=== PATIENT | male | born 1940 | race Caucasian/White ===

== ENCOUNTER 2023-06-07 04:15 | Observation (INO) | payer MEDICARE, SELFPAY ==
[2023-06-07] VITALS (8 sets, daily range): BP systolic 123–143; BP diastolic 60–70; PULSE 70–120; RESP 16–19; TEMP 36.8–37.1; O2SAT 93–95; BMI 26.6
--- NOTE | 2023-06-07 04:35 | PC.NURSE ---
Patient arrived to floor by EMS at 04:20.
--- NOTE | 2023-06-07 05:10 | XR_ITS ---
PROCEDURE INFORMATION: Exam: XR Chest Exam date and time: 06/07/2023 6:28 AM Age: 83 years old Clinical indication: Cough TECHNIQUE: Imaging protocol: Radiologic exam of the chest. Views: 1 view. COMPARISON: No relevant prior studies available. FINDINGS: Lungs: There is left basilar atelectasis. Pleural spaces: Unremarkable. No pleural effusion. No pneumothorax. Heart/Mediastinum: Unremarkable. No cardiomegaly. Bones/joints: Unremarkable. IMPRESSION: Basilar atelectasis.
[2023-06-07 05:17] LABS: Influenza A, PCR Not Detected (NotDetected); Influenza B, PCR Not Detected (NotDetected)
--- NOTE | 2023-06-07 05:19 | EXP.HP ---
History of Present Illness *Admission Date: 06/07/23 *Reason for visit:: elatevated troponin, cough *History of present illness: This is an 83-year-old male with significant cardiac history including hypertension, hyperlipidemia, CAD status post CABGx3, IDDM, who came as a transfer from [facility], to be evaluated for elevated troponin in the course of positive diagnosis of COVID-19. Patient went to the ER earlier, complaining of generalized weakness, cough diarrhea. Patient was tested positive for COVID on his PCP office today. He also reported hypoglycemic episodes. During the ER evaluation patient started trending up the troponin. Denies chest pain, on room air, afebrile, hemodynamically stable. Transfer asked to be evaluated by cardiology. [facility] Disclaimer: The information contained in this section may have been updated after the patient was seen, as this information can be updated by other users. Medical History (Updated 06/07/23 @ 14:02 by Jonathon Fonseca MD) CAD (coronary artery disease) Hyperlipemia Social History (Updated 06/07/23 @ 05:42 by Eric Conte APRN) Smoking Status: Unknown if ever smoked alcohol intake: never current occupational status: retired Travel in the last 8 weeks: None Review of Systems Review of Systems Review of systems:: pertinent systems reviewed and negative unless documented below Meds Home Medications and Allergies Home Medications Medication Instructions Recorded Confirmed Type atorvastatin 40 mg tablet 40 mg PO HS Cholesterol 06/07/23 06/07/23 History colchicine (gout) 0.6 mg tablet 0.6 mg PO DAILY GOUT 06/07/23 06/07/23 History hydrochlorothiazide 50 mg tablet 50 mg PO DAILY Fluid 06/07/23 06/07/23 History insulin aspart U-100 100 unit/mL See Rx Instructions .Route 06/07/23 06/07/23 History (3 mL) subcutaneous pen (Novolog .COMPLEX Diabetes FlexPen U-100 Insulin aspart) insulin glargine 100 unit/mL 48 unit SQ DAILY Diabetes 06/07/23 06/07/23 History subcutaneous solution (Lantus U-100 Insulin) lisinopril 30 mg tablet 30 mg PO DAILY High Blood Pressure 06/07/23 06/07/23 History metformin 500 mg tablet 1,000 mg PO BIDWMEAL Diabetes 06/07/23 06/07/23 History metoprolol tartrate 25 mg tablet 25 mg PO BID High Blood Pressure 06/07/23 06/07/23 History New Prescriptions to Start Prescriptions: Allergies Allergy/AdvReac Type Severity Reaction Status Date / Time No Known Drug Allergies Allergy Verified 06/07/23 05:24 Exam Data for Last 24 hours Vital signs and Labs for Last 24 Hours: Temp Pulse Resp BP Pulse Ox O2 Del Method 98.2 F 90 19 143/64 H 95 Room Air 06/07/23 04:42 06/07/23 04:42 06/07/23 04:42 06/07/23 04:42 06/07/23 04:42 06/07/23 04:42 I & O for Last 24 hours: Intake & Output 06/04/23 06/05/23 06/06/23 06/07/23 23:59 23:59 23:59 23:59 Weight 86.682 kg Constitutional Constitutional: mild distress *Routine HEENT Exam Head: Present normocephalic and atraumatic Eye: Present EOMI, PERRL and normal accommodation ENT: Present mucous membranes moist *Routine Neck Exam Neck: Present supple, full ROM and trachea midline *Routine Respiratory Exam Respiratory: Present diminished air movement, normal respiratory effort, able to speak in complete sentences and symmetric chest movement *Routine Cardiovascular Exam Cardiovascular: Present RRR, Normal S1 and Normal S2 *Routine Abdominal Exam Abdominal: Present soft and normoactive bowel sounds; Absent organomegaly *Routine Rectal Exam Rectal:: other *Routine Genitalia Exam Genitalia:: other *Routine Extremities Exam Extremities: Present full ROM, pulses intact and normal capillary refill; Absent cyanosis *Routine Skin Exam Skin: Present intact, dry and warm *Routine Neurological Exam Neurological: Present alert, oriented X3, moving all extremities and normal tone Routine Psychiatric Exam Psychiatric: Present cooperative, good insight an
--- NOTE | 2023-06-07 05:29 | PC.NURSE ---
med rec not completed. pt. does not know his medications. pt. stated son would be here today and could bring a list of his home meds
[2023-06-07 05:45] LABS: Coronavirus 19, PCR Detected (NotDetected)
[2023-06-07 07:33] LABS: Basophils % 0.5 % (0.1-2.0); Eosinophils % 0.3 % (0.1-12.0); Hematocrit 42.7 % (42.0-52.0); Hemoglobin 13.9 g/dL (14.1-18.0); Lymphocytes # 1.1 K/mm3 (0.7-4.5); Mean Corpuscular HGB Conc 32.5 g/dL (31.8-35.4); Mean Corpuscular Volume 92.3 fl (80-94); Mean Platelet Volume 7.9 fl (7.4-10.4); Monocytes # 0.6 K/mm3 (0.1-1.0); Monocytes % 11.2 % (1.7-9.3); Neutrophils # 3.7 K/mm3 (1.8-7.8); Platelet Count 156 K/mm3 (142-424); Red Blood Count 4.63 M/mm3 (4.60-6.20); Red Cell Distribution Width 13.5 % (11.5-17.5); White Blood Count 5.4 K/mm3 (4.8-10.8)
[2023-06-07 07:35] LABS: Alanine Aminotransferase 28 U/L (12-78); Albumin Level 3.4 g/dl (3.5-5.0); Albumin/Globulin Ratio 1.3 (1.1-1.8); Alkaline Phosphatase 78 U/L (38-126); Anion Gap 12.2 mEq/L (5-15); Aspartate Amino Transferase 35 U/L (17-59); Blood Urea Nitrogen 17 mg/dl (9-20); Calcium 8.5 mg/dl (8.4-10.2); Carbon Dioxide 27 mmol/L (22.0-30.0); Chloride 99 mmol/L (98-107); Chol/HDL Ratio 3.1 (1-3.5); Cholesterol 92 mg/dl (140-200); Creatinine Clearance Estimated 71 mL/min (50-200); Estimated Glomerular Filt Rate 72 ml/min (>60); GFR (African American) 87 ML/MIN (>60); Globulin 2.6 g/dL (1.3-3.2); Glucose 148 mg/dl (74-100); HDL Cholesterol 30 mg/dl (40-60); Magnesium 1.7 mg/dl (1.6-2.3); Potassium 3.2 mmoL/L (3.5-5.1); Sodium 135 mmol/L (136-145); Triglycerides 66 mg/dl (30-150); VLDL Cholesterol 13 mg/dL (0-40)
[2023-06-07 07:39] LABS: INR 1.08 (0.9-1.1); Prothrombin Time 11.6 seconds (10.1-12.5)
[2023-06-07 07:45] LABS: D-Dimer 1.02 ug/mL (0.0-0.5); Direct LDL Cholesterol 39.45 mg/dL (100-129)
[2023-06-07 08:03] LABS: Troponin I 0.05 ng/ml (0.00-0.034)
[2023-06-07 11:57] LABS: POC Glucose,Bedside 145 (70-110)
[2023-06-07 12:19] LABS: Troponin I 0.04 ng/ml (0.00-0.034)
--- NOTE | 2023-06-07 12:24 | HMH.PHAINT1 ---
Pharmacy Intervention Comments: MEDICATION RECONCILIATION COMPLETED ON PATIENT USING EXTERNAL FILL HISTORY FROM PHARMACY. -MARCY PIERRE, HENRYD
[2023-06-07 16:54] LABS: POC Glucose,Bedside 141 (70-110)
--- NOTE | 2023-06-07 18:31 | PC.NURSE ---
PT AOX4, HE HAS NOT REQUIRED O2 SUPPORT. SAT UP TO CHAIR FOR DINNER AND TOLERATED WELL. AMBULATING WITH STANDBY ASSIST TO BATHROOM.
[2023-06-07 18:49] LABS: Chloride 103 mmol/L (98-107); Sodium 134 mmol/L (136-145)
[2023-06-07 18:50] LABS: Potassium 4.5 mmoL/L (3.5-5.1)
[2023-06-07 18:52] LABS: Alanine Aminotransferase 34 U/L (12-78); Albumin Level 3.5 g/dl (3.5-5.0); Albumin/Globulin Ratio 1.2 (1.1-1.8); Alkaline Phosphatase 89 U/L (38-126); Anion Gap 12.5 mEq/L (5-15); Aspartate Amino Transferase 80 U/L (17-59); Bilirubin,Total 1.3 mg/dl (0.2-1.3); Blood Urea Nitrogen 17 mg/dl (9-20); Carbon Dioxide 23 mmol/L (22.0-30.0); Creatinine Clearance Estimated 71 mL/min (50-200); Estimated Glomerular Filt Rate 72 ml/min (>60); GFR (African American) 87 ML/MIN (>60); Globulin 2.9 g/dL (1.3-3.2); Total Protein,Serum 6.4 g/dl (6.3-8.2)
[2023-06-07 18:53] LABS: Calcium 8.7 mg/dl (8.4-10.2); Glucose 153 mg/dl (74-100)
[2023-06-07 19:04] LABS: Troponin I 0.03 ng/ml (0.00-0.034)
[2023-06-07 21:20] LABS: POC Glucose,Bedside 163 (70-110)
[2023-06-08] VITALS (7 sets, daily range): BP systolic 101–123; BP diastolic 54–66; PULSE 50–78; RESP 17–19; TEMP 36.6–37.2; O2SAT 93–98; BMI 26.6
--- NOTE | 2023-06-08 04:49 | PC.NURSE ---
PATIENT HAS HAD AN UNEVENTFUL NIGHT. DENIES CP/SOA/DISCOMFORT. NO RESP DISTRESS NOTED;. NO COUGH NOTED. 02 SATS 93-95% ON ROOM AIR. VITAL SIGNS STABLE . AFEBRILE. REMAINS IN AIRBORN/CONTACT PRECAUTIONS DUE TO COVID POSITIVE.
[2023-06-08 05:17] LABS: POC Glucose,Bedside 161 (70-110)
[2023-06-08 07:49] LABS: Basophils % 0.8 % (0.1-2.0); Eosinophils # 0.1 K/mm3 (0.0-0.4); Eosinophils % 1.9 % (0.1-12.0); Hematocrit 43.7 % (42.0-52.0); Hemoglobin 14.1 g/dL (14.1-18.0); Lymphocytes # 1.4 K/mm3 (0.7-4.5); Lymphocytes % 35.8 % (10-50); Mean Corpuscular HGB Conc 32.2 g/dL (31.8-35.4); Mean Corpuscular Hemoglobin 29.8 pg (27.0-31.2); Mean Corpuscular Volume 92.6 fl (80-94); Mean Platelet Volume 8.1 fl (7.4-10.4); Monocytes # 0.4 K/mm3 (0.1-1.0); Monocytes % 8.8 % (1.7-9.3); Neutrophils # 2.1 K/mm3 (1.8-7.8); Neutrophils % 52.8 % (37.0-80.0); Platelet Count 170 K/mm3 (142-424); Red Blood Count 4.72 M/mm3 (4.60-6.20); Red Cell Distribution Width 13.7 % (11.5-17.5)
[2023-06-08 07:59] LABS: Alanine Aminotransferase 39 U/L (12-78); Albumin Level 3.3 g/dl (3.5-5.0); Albumin/Globulin Ratio 1.3 (1.1-1.8); Alkaline Phosphatase 72 U/L (38-126); Anion Gap 11.2 mEq/L (5-15); Aspartate Amino Transferase 46 U/L (17-59); Bilirubin,Total 0.8 mg/dl (0.2-1.3); Blood Urea Nitrogen 17 mg/dl (9-20); Calcium 8.5 mg/dl (8.4-10.2); Carbon Dioxide 29 mmol/L (22.0-30.0); Chloride 102 mmol/L (98-107); Creatinine Clearance Estimated 71 mL/min (50-200); Estimated Glomerular Filt Rate 72 ml/min (>60); GFR (African American) 87 ML/MIN (>60); Globulin 2.6 g/dL (1.3-3.2); Glucose 155 mg/dl (74-100); Magnesium 1.9 mg/dl (1.6-2.3); Potassium 4.2 mmoL/L (3.5-5.1); Sodium 138 mmol/L (136-145); Total Protein,Serum 5.9 g/dl (6.3-8.2)
[2023-06-08 08:11] LABS: Troponin I 0.03 ng/ml (0.00-0.034)
--- NOTE | 2023-06-08 10:37 | EXP.ACUTE.PN ---
Subjective *Date: 06/08/23 *Time: 12:37 Interval history: Patient complains of being hoarse and weak today. Stable on room air. Denies any chest pain, nausea, vomiting. Poor appetite but eating at least 25% of his trays. Working with therapy today. Medical Exam Vital signs and Labs for Last 24 Hours: Vital Signs Temp Pulse Pulse Resp BP Pulse Ox O2 Del Method 06/08/23 09:00 Room Air 06/08/23 08:00 Room Air 06/08/23 08:00 63 06/08/23 08:00 98.2 F 67 18 113/66 95 Room Air 06/08/23 06:29 Room Air 06/08/23 05:00 Room Air 06/08/23 04:00 98.1 F 64 19 110/57 L 94 L Room Air 06/08/23 04:00 65 06/08/23 02:51 Room Air 06/08/23 01:00 Room Air 06/08/23 00:00 62 06/08/23 00:00 98.0 F 61 18 119/58 L 93 L Room Air 06/07/23 20:00 70 06/07/23 23:00 Room Air 06/07/23 21:00 Room Air 06/07/23 20:00 95 Room Air 06/07/23 20:00 98.4 F 76 19 124/66 95 Room Air 06/07/23 18:34 Room Air 06/07/23 16:00 90 06/07/23 17:00 Room Air 06/07/23 15:00 Room Air 06/07/23 12:00 90 06/07/23 14:28 98.7 F 88 16 123/69 93 L Room Air 06/07/23 13:00 Room Air 06/07/23 11:00 Room Air 06/07/23 10:43 98.6 F 95 H 16 139/60 94 L Room Air Intake and Output 06/07/23 06/08/23 06/08/23 23:59 07:59 15:59 Intake Total 270 / 1130 889 / 1369 480 / 1369 Output Total 0 / 100 200 / 200 0 / 200 Balance 270 / 1030 689 / 1169 480 / 1169 Intake: Intake, Oral Amount 270 / 1130 440 / 920 480 / 920 Intake, Total IV Amount 449 / 449 0.9 % Sodium Chloride 1000ML 1, 449 / 449 000 ml @ 50 mls/hr IV .Q20H [facility] Rx#:[id number] Output: Output, Urine Amount 0 / 100 200 / 200 0 / 200 Other: Number of Unmeasured Voids 1 0 0 Weight 86.319 kg Patient Weight 06/08/23 23:59 Weight 86.319 kg Laboratory Results - last 24 hr 06/07/23 11:45: POC Glucose 145 H 06/07/23 11:48: Troponin I 0.04 H 06/07/23 16:47: POC Glucose 141 H 06/07/23 18:00: Sodium 134 L, Potassium 4.5 D, Chloride 103, Carbon Dioxide 23, Anion Gap 12.5, BUN 17, Creatinine 1.00, Estimated Creat Clear 71, Estimated GFR 72, Est GFR ( Amer) 87, Glucose 153 H, Calcium 8.7, Total Bilirubin 1.3, AST 80 H D, ALT 34, Alkaline Phosphatase 89, Troponin I 0.03, Total Protein 6.4, Albumin 3.5, Globulin 2.9, Albumin/Globulin Ratio 1.2 06/07/23 21:13: POC Glucose 163 H 06/08/23 05:02: POC Glucose 161 H 06/08/23 07:23: WBC 4.0 L D, RBC 4.72, Hgb 14.1, Hct 43.7, MCV 92.6, MCH 29.8, MCHC 32.2, RDW 13.7, Plt Count 170, MPV 8.1, Neut % (Auto) 52.8, Lymph % (Auto) 35.8, [place] % (Auto) 8.8, Eos % (Auto) 1.9, Baso % (Auto) 0.8, Neut # (Auto) 2.1, Lymph # (Auto) 1.4, [place] # (Auto) 0.4, Eos # (Auto) 0.1, Baso # (Auto) 0.0, Sodium 138, Potassium 4.2, Chloride 102, Carbon Dioxide 29, Anion Gap 11.2, BUN 17, Creatinine 1.00, Estimated Creat Clear 71, Estimated GFR 72, Est GFR ( Amer) 87, Glucose 155 H, Calcium 8.5, Magnesium 1.9 D, Total Bilirubin 0.8, AST 46 D, ALT 39, Alkaline Phosphatase 72, Troponin I 0.03, Total Protein 5.9 L, Albumin 3.3 L, Globulin 2.6, Albumin/Globulin Ratio 1.3 I & O for Labs for Last 24 Hours: Intake & Output 06/05/23 06/06/23 06/07/23 06/08/23 23:59 23:59 23:59 23:59 Intake Total 690 / 1130 1369 / 1369 Output Total 100 / 100 200 / 200 Balance 590 / 1030 1169 / 1169 Weight 86.682 kg 86.319 kg Constitutional: Present no acute distress and average body habitus Head: Present atraumatic and normocephalic Neck: Present normal inspection Respiratory: Present normal respiratory effort; Absent rhonchi, wheezes or crackles Cardiac: Present Reg Rate and Rhythm GI: Present soft and normal bowel sounds; Absent distention or tenderness Extremities: Present normal inspection and full ROM Skin: Present intact; Absent erythema Neuro: Present Grossly Intact, alert, awake, oriented x 3 and mo
--- NOTE | 2023-06-08 12:29 | HMH.PTEV ---
Physical Therapy Evaluation Rehab PT IP Evaluation Start: 06/07/23 13:47 Freq: ONCE Status: Active Protocol: Document 06/08/23 12:18 MARY (Rec: 06/08/23 12:28 RESHMAELAINE [id number]) Subjective/History History History Pt is a 83 year old male that was transferred from [facility] for evaluation of elevated troponin in the course of positive COVID-19 diagnosis. Pt went to the ER with complaints of generalized weakness, cough and diarrhea. Pt tested positive for COVID in PCP office. During evaluation in the ER, pt was found to have upward trending troponin. Pt denied chest pain and was hemodynamically stable. Pt was transferred to be evaluated by cardiology and admitted for IP management. PMH: hypertension, hyperlipidemia, CAD status post CABGx3, IDDM Subjective Subjective Pt presents seated in bedside chair, pleasant and agreeable to PT initial evaluation. Pt denies reports of pain at rest other than a scratchy throat. Pt reports that he lives at home with his and adult granddaughter in a [facility] with 4 FLIP. Pt reports that he has used a cane for ambulation in the past but has not used it recently. Pt reports that at baseline he is independent with all B/IADL's including driving. Pt reports that his has skin cancer and he has been assisting to care for her. Pt performed sit to stand transfer with mod (I) without the use of an AD. Pt ambulated x50' within room without the use of an AD with mod (I), no LOB noted. Pt performed all bed mobility tasks with mod (I
[2023-06-08 17:37] LABS: POC Glucose,Bedside 153 (70-110)
[2023-06-08 17:37] LABS: POC Glucose,Bedside 194 (70-110)
[2023-06-08 20:41] LABS: POC Glucose,Bedside 235 (70-110)
[2023-06-09] VITALS: BP 135/73; PULSE 53; PULSE 56; RESP 18; TEMP 36.5; O2SAT 96
--- NOTE | 2023-06-09 00:53 | ECG_ITS ---
APPROVED REPORT Exam: Resting ECG HR:49 bpm ECG Measurements Heart Rate 49 AXES SC 147 P 35 QRSd 103 QRS 3 QT 467 T 76 QTc 437 Conclusion SINUS BRADYCARDIA WITH OCCASIONAL SUPRAVENTRICULAR PREMATURE COMPLEXES LOW QRS VOLTAGE IN EXTREMITY LEADS [QRS DEFLECTION < 0.5 mV IN LIMB LEADS] SEPTAL MYOCARDIAL INFARCTION , OF INDETERMINATE AGE [40+ ms Q WAVE IN V1/V2] ABNORMAL ECG UNCONFIRMED REPORT Electronically signed by : Tahir Armstrong MD 06/09/2023 07:09:14
[2023-06-09 04:00] VITALS: BP 137/62; PULSE 55; PULSE 57; RESP 18; TEMP 36.6; O2SAT 95; BMI 26.3
[2023-06-09 05:21] LABS: POC Glucose,Bedside 174 (70-110)
--- NOTE | 2023-06-09 06:23 | PC.NURSE ---
HR GETS LOW 45/MIN. SINUS RADHA/PACs/BBB. DENIES PAIN OR DISCOMFORT. VSS/AFEBRILE. REMAINS IN AIRBORN/CONTACT PRECAUTIONS DUE TO COVID POSITIVE. NO RESP DISTRESS. NO COUGH NOTED.
[2023-06-09 06:47] LABS: Basophils % 0.6 % (0.1-2.0); Eosinophils # 0.2 K/mm3 (0.0-0.4); Eosinophils % 3.7 % (0.1-12.0); Hematocrit 44.3 % (42.0-52.0); Hemoglobin 14.3 g/dL (14.1-18.0); Lymphocytes # 1.6 K/mm3 (0.7-4.5); Mean Corpuscular HGB Conc 32.3 g/dL (31.8-35.4); Mean Corpuscular Hemoglobin 29.8 pg (27.0-31.2); Mean Corpuscular Volume 92.4 fl (80-94); Mean Platelet Volume 7.8 fl (7.4-10.4); Monocytes # 0.3 K/mm3 (0.1-1.0); Monocytes % 8.4 % (1.7-9.3); Neutrophils # 1.9 K/mm3 (1.8-7.8); Neutrophils % 47.2 % (37.0-80.0); Platelet Count 179 K/mm3 (142-424); Red Cell Distribution Width 13.6 % (11.5-17.5); White Blood Count 3.9 K/mm3 (4.8-10.8)
--- NOTE | 2023-06-09 07:00 | CA_ITS ---
APPROVED REPORT EXAM: Comprehensive 2D, Doppler, and color-flow Echocardiogram Undercoater: Galina Bull CRT Ht: 5 ft 11 in Wt: 191lbs BSA: 2.07 BP: 143/64 mmHg Indications: Covid +, Non STEMI, Diabetes, CAD, Hyperlipidemia, Hypertension/HDD, CABG x 3 Echo 60-65% at january 2023 2D Dimensions LVOT 1.94 cm (M/F) 1.5-2.5 LA Volume 29.00 mL LA Volume Index 13.70 mL/m2 (M/F) 16-34 M-Mode Dimensions RVDd 2.57 cm (0.9-2.6) LA Diam 3.51 cm (1.9-4.0) LVDd 6.07 cm (3.5-5.7) Ao Diam 4.36 cm (2.0-3.7) LVDs 4.30 cm (3.5-5.7) IVSd 0.96 cm (0.6-1.1) PWd 1.04 cm (0.6-1.1) EF (Teich) 55.00% FS 29.20% EDV (Teich) 184.80 mL TAPSE 1.61 (<1.7) ESV (Teich) 83.10 mL LV Diastology E Decel Time 223.00 (160-240 msec) E/A Ratio 0.72 MED E' 6.20 (< 7 cm/sec) MED A' 9.20 cm/s E'/MED E' Ratio 11.97 (>14) LAT E' 7.60 (<10 cm/sec) LAT A' 10.30 cm/s E/LAT E' Ratio 9.76 (>14) Aortic Valve AO Peak GR. 5.20 mmHg Mitral Valve MV A Velocity 103.00 (40-130 cm/s) E/A Ratio 0.72 MV Decel. Time 223.00 (160-240 ms) Pulmonary Valve PV Peak Velocity 105.00 (50-150 cm/s) Tricuspid Valve TR P. Velocity 123.00 cm/s RAP Estimate 10.00 mmHg RVSP 16.10 mmHg Left Ventricle The left ventricle is normal size. The left ventricular systolic function is normal. The left ventricular ejection fraction is within the normal range. Proximal septal thickening is present. There is normal LV segmental wall motion. The left ventricular diastolic function is normal. LVEF is 60% Right Ventricle The right ventricle is normal size. The right ventricular systolic function is normal. Atria The left atrium size is normal. The right atrium size is normal. There is no Doppler evidence of interatrial shunt. Aortic Valve The aortic valve is mildly thickened. There is no aortic valvular stenosis. Trace aortic regurgitation. Mitral Valve The mitral valve is normal in structure. No evidence of mitral valve stenosis. Mild mitral regurgitation. Tricuspid Valve The tricuspid valve leaflets are thin and pliable. Trace tricuspid regurgitation. There is insufficient TR jet to estimate RVSP. Pulmonic Valve The pulmonary valve is normal in structure. Trace pulmonic regurgitation. Great Vessels The aortic root is normal in size. The ascending aorta is normal in size. IVC is normal in size and collapses >50% with inspiration. Pericardium There is no pericardial effusion. Other Information Study Quality: Fair Conclusion Normal biventricular systolic function. No significant valvular stenosis or regurgitation. Electronically signed by : Sarah Thomas, 06/12/2023 21:44:36
[2023-06-09 07:01] LABS: Alanine Aminotransferase 48 U/L (12-78); Albumin Level 3.3 g/dl (3.5-5.0); Albumin/Globulin Ratio 1.3 (1.1-1.8); Alkaline Phosphatase 77 U/L (38-126); Anion Gap 9.8 mEq/L (5-15); Aspartate Amino Transferase 52 U/L (17-59); Bilirubin,Total 0.6 mg/dl (0.2-1.3); Blood Urea Nitrogen 17 mg/dl (9-20); Calcium 8.4 mg/dl (8.4-10.2); Carbon Dioxide 30 mmol/L (22.0-30.0); Chloride 101 mmol/L (98-107); Creatinine Clearance Estimated 70 mL/min (50-200); Estimated Glomerular Filt Rate 81 ml/min (>60); GFR (African American) 98 ML/MIN (>60); Globulin 2.6 g/dL (1.3-3.2); Glucose 176 mg/dl (74-100); Magnesium 1.9 mg/dl (1.6-2.3); Potassium 3.8 mmoL/L (3.5-5.1); Sodium 137 mmol/L (136-145); Total Protein,Serum 5.9 g/dl (6.3-8.2)
[2023-06-09 08:00] VITALS: BP 125/62; PULSE 60; PULSE 62; RESP 16; TEMP 36.6; O2SAT 95
--- NOTE | 2023-06-09 09:28 | SW/DCPLANNER ---
Addendum entered by Windy Markham 06/09/23 14:57: [facility] w/ [facility] stated they can accept this patient for home health services to start tomorrow 06/10/23. Addendum entered by Windy Markham 06/09/23 11:47: Patient information/order has been faxed to [facility]. Patient will discharge home today. Original Note: PT evaluated patient over the weekend and recommended patient returning home w/ home health services. I spoke w/ patient this AM regarding discharge plans. Patient stated that he resides in [place] w/ his that requires his assistance at home. I spoke w/ patient regarding home health services: patient is agreeable to services and prefers to use [facility]. I will fax patient information/order to [facility] once patient is medically stable for discharge. Discharge date is unknown at this time.
--- NOTE | 2023-06-09 09:49 | HMH.OTEV ---
OT Inpatient Evaluation Rehab OT IP Evaluation Start: 06/07/23 13:47 Freq: ONCE Status: Active Protocol: Document 06/09/23 09:43 [facility] (Rec: 06/09/23 09:49 [facility] [id number]) Rehab OT IP Assessment Subjective History Pt oriented x 4 on arrival. Pt agreeable to engage in therapy evaluation. Pt admitted on 06/07/23 due to elevated troponin and COVID. This is an 83-year-old male with significant cardiac history including hypertension , hyperlipidemia, CAD status post CABGx3, IDDM, who came as a transfer from [facility], to be evaluated for elevated troponin in the course of positive diagnosis of COVID-19 . Prior to being in the hospital, pt lived at home with his . Pt claims he was independent with all ADLs and IADLs. Pt did use a cane during ambulation. Pt also still drove. Subjective I am ready to go home and see my . Objective Patient Orientation Person,Place,Birthday,Month Upper Extremity Gross ROM WFL Bed Mobility bed mobility-scooting,bed mobility - supine/sit,bed mobility - rolling Assist Level Independent Transfer Training Sit/Stand Transfer Assist Level Supervision/Stand by Chair Transfer Ability Supervision/Stand by Chair Transfer Technique Sit to/from Ambulatory Lower Body Dressing Ability Standby Assistance Rehab OT IP prob,goals,plan Problems Date of Evaluation: 06/09/23 Rehab Potential Rehab Potential Innapropriate for Skilled Therapy Discharge Plan OT Discharge Plan At this time, pt appears to be at his baseline with functional transfers and ADL independence. Pt can return home once medically stable per physician. Eval Complexity Eval Charge Codes 27827 - Low Complexity PHYSICIAN CERTIFICATION: I certify the specified therapy services
--- NOTE | 2023-06-09 11:11 | EXP.CARD.CON ---
History of Present Illness History of Present Illness Consult date: 06/09/23 Requesting physician: Jonathon Fonseca Chief complaint: weakness, cough, diarrhea History of present illness: This is an 83-year-old male with PMH of hypertension, hyperlipidemia, CAD status post CABGx3 ad IDDM, who came as a transfer from [facility] to be evaluated for elevated troponin in the setting of a positive diagnosis of COVID-19. Patient initially went to ER complaining of generalized weakness, cough and diarrhea after testing positive for COVID at his pcp office. He also reported hypoglycemic episodes. During the ER evaluation had an elevated troponin and was transferred to [facility] for cardiology evaluation. Patient denies chest pain or soa currently. [facility] Disclaimer: The information contained in this section may have been updated after the patient was seen, as this information can be updated by other users. Medical History (Updated 06/09/23 @ 11:19 by Kaelyn Myers APRN) CAD (coronary artery disease) Hyperlipemia Social History (Updated 06/07/23 @ 05:42 by Eric Conte APRN) Smoking Status: Unknown if ever smoked alcohol intake: never current occupational status: retired Travel in the last 8 weeks: None Review of Systems Constitutional Comments: generalized weakness ENT Comments: cough *Gastrointestinal Comments: diarrhea Exam Data for Last 24 hours Vital signs and Labs for Last 24 Hours: Temp Pulse Resp BP Pulse Ox O2 Del Method 97.8 F 62 16 125/62 95 Room Air 06/09/23 08:00 06/09/23 08:00 06/09/23 08:00 06/09/23 08:00 06/09/23 08:00 06/09/23 08:00 Laboratory Results - last 24 hr 06/08/23 11:55: POC Glucose 153 H 06/08/23 17:28: POC Glucose 194 H 06/08/23 19:47: POC Glucose 235 H 06/09/23 05:09: POC Glucose 174 H 06/09/23 05:28: WBC 3.9 L, RBC 4.80, Hgb 14.3, Hct 44.3, MCV 92.4, MCH 29.8, MCHC 32.3, RDW 13.6, Plt Count 179, MPV 7.8, Neut % (Auto) 47.2, Lymph % (Auto) 40.0, [place] % (Auto) 8.4, Eos % (Auto) 3.7, Baso % (Auto) 0.6, Neut # (Auto) 1.9, Lymph # (Auto) 1.6, [place] # (Auto) 0.3, Eos # (Auto) 0.2, Baso # (Auto) 0.0, Sodium 137, Potassium 3.8, Chloride 101, Carbon Dioxide 30, Anion Gap 9.8, BUN 17, Creatinine 0.90, Estimated Creat Clear 70, Estimated GFR 81, Est GFR ( Amer) 98, Glucose 176 H, Calcium 8.4, Magnesium 1.9, Total Bilirubin 0.6, AST 52, ALT 48, Alkaline Phosphatase 77, Total Protein 5.9 L, Albumin 3.3 L, Globulin 2.6, Albumin/Globulin Ratio 1.3 I & O for Last 24 hours: Intake & Output 06/06/23 06/07/23 06/08/23 06/09/23 23:59 23:59 23:59 23:59 Intake Total 690 / 1130 1849 / 1849 Output Total 100 / 100 200 / 200 0 / 0 Balance 590 / 1030 1649 / 1649 0 / 0 Weight 191 lb 1.6 oz 190 lb 4.8 oz 188 lb 4 oz Constitutional Constitutional: no acute distress *Routine Respiratory Exam Respiratory: Present CTA bilaterally and symmetric chest movement *Routine Cardiovascular Exam Cardiovascular: Present RRR, Normal S1 and Normal S2 *Routine Abdominal Exam Abdominal: Present soft and normoactive bowel sounds; Absent tenderness *Routine Extremities Exam Extremities: Present full ROM and normal capillary refill; Absent edema *Routine Skin Exam Skin: Present intact, dry and warm Detailed Neck Exam: Thyroids Thyroid: Absent bruit Meds Home Medications and Allergies Home Medications Medication Instructions Recorded Confirmed Type atorvastatin 40 mg tablet 40 mg PO HS Cholesterol 06/07/23 06/07/23 History colchicine (gout) 0.6 mg tablet 0.6 mg PO DAILY GOUT 06/07/23 06/07/23 History hydrochlorothiazide 50 mg tablet 50 mg PO DAILY Fluid 06/07/23 06/07/23 History insulin aspart U-100 100 unit/mL See Rx Instructions .Route 06/07/23 06/07/23 History (3 mL) subcutaneous pen (Novolog .COMPLEX Diabetes FlexPen U-100 Insulin aspart) insulin glargine 100 unit/mL 48 unit SQ DAILY Diabetes 06/07/23 06/07/23 History subcutaneous solution (Lantus
--- NOTE | 2023-06-09 11:32 | EXP.DC.SUM ---
General Admission date:: 06/07/23 Discharge date: 06/09/23 HPI HPI HPI: This is an 83-year-old male with significant cardiac history including hypertension, hyperlipidemia, CAD status post CABGx3, IDDM, who came as a transfer from [facility], to be evaluated for elevated troponin in the course of positive diagnosis of COVID-19. Patient went to the ER earlier, complaining of generalized weakness, cough diarrhea. Patient was tested positive for COVID on his PCP office today. He also reported hypoglycemic episodes. During the ER evaluation patient started trending up the troponin. Denies chest pain, on room air, afebrile, hemodynamically stable. Transfer asked to be evaluated by cardiology. Hospital Course Hospital Course Hospital Course: 83-year-old male with significant cardiac history including hypertension, hyperlipidemia, CAD status post CABGx3, IDDM, who came as a transfer from [facility], to be evaluated for elevated troponin in the course of positive diagnosis of COVID-19. On arrival, continue to have mild troponin elevation but stable. No symptoms of chest pain. Stable on room air but patient has significant weakness. VERONICA improved. PT and OT working with patient, Given patient's mobility, stable for discharge home with home health. Does not meet placement criteria. Stable to discharge home. Problems addressed as follows: -NSTEMI: -Elevated troponin: Patient initially presented to [facility] with weakness and fatigue. Found to be at have elevated troponin. Transferred to [facility] for cardiology eval and NSTEMI. Serial troponins remained stable. Patient had no changes of ischemia on EKG. Monitored on telemetry. Cardiology evaluated patient. Recommend outpatient follow-up for further ischemic work-up. Reviewed patient's chart from via [employer]. Had an echo performed in January showing EF of 60 to 65%. Echocardiogram obtained on day of discharge with preliminary read showing preserved EF. Patient has remained chest pain-free. -COVID-19 positive: Stable on RA. Tessalon Perles for cough, Chloraseptic spray as needed. does not meet criteria for Remdesivir -Acute kidney injury: Elevated creatinine of 1.6 on admission. Return to baseline 1.0. Making adequate urine. Tolerating p.o. fluids. -Insulin-dependent diabetes with hyperglycemia: Accu-Cheks before meals. On sliding scale insulin. Diabetic diet. Resume home regimen at discharge. -Hyperlipidemia - CAD Continue aspirin 81 mg and Lipitor 40 mg daily. Stable for discharge home. Given patient's weakness and that he is caring for his ailing , would benefit from home health referral. Case management assisting with home health for PT, OT, longterm. Spent 30 minutes in discharge counseling, chart review, documentation, and direct care with patient. Exam Data for Last 24 hours Vital signs and Labs for Last 24 Hours: Temp Pulse Resp BP Pulse Ox O2 Del Method 97.8 F 62 16 125/62 95 Room Air 06/09/23 08:00 06/09/23 08:00 06/09/23 08:00 06/09/23 08:00 06/09/23 08:00 06/09/23 08:00 Laboratory Results - last 24 hr 06/08/23 11:55: POC Glucose 153 H 06/08/23 17:28: POC Glucose 194 H 06/08/23 19:47: POC Glucose 235 H 06/09/23 05:09: POC Glucose 174 H 06/09/23 05:28: WBC 3.9 L, RBC 4.80, Hgb 14.3, Hct 44.3, MCV 92.4, MCH 29.8, MCHC 32.3, RDW 13.6, Plt Count 179, MPV 7.8, Neut % (Auto) 47.2, Lymph % (Auto) 40.0, [place] % (Auto) 8.4, Eos % (Auto) 3.7, Baso % (Auto) 0.6, Neut # (Auto) 1.9, Lymph # (Auto) 1.6, [place] # (Auto) 0.3, Eos # (Auto) 0.2, Baso # (Auto) 0.0, Sodium 137, Potassium 3.8, Chloride 101, Carbon Dioxide 30, Anion Gap 9.8, BUN 17, Creatinine 0.90, Estimated Creat Clear 70, Estimated GFR 81, Est GFR ( Amer) 98, Glucose 176 H, Calcium 8.4, Magnesium 1.9, Total Bilirubin 0.6, AST 52, ALT 48, Alkaline Phosphatase 77, Total Protein 5.9 L, Albumin 3.3 L, Globulin 2.6, Albumin/Globulin Ratio
[2023-06-09 11:36] LABS: POC Glucose,Bedside 240 (70-110)
[2023-06-09 12:00] VITALS: PULSE 50
--- NOTE | 2023-06-10 13:57 | CARE MANAGER ---
Called patient to discuss recent discharge. He stated that he is doing well, has been up walking around the house, and has started ASA as prescribed at discharge. Patient aware of scheduled f/u appt. No concerns or questions at time of call.
== END 2023-06-09 13:44 | disposition home health service (06) ==
PROVIDERS: Nurse Practitioner Family; Admitting Provider Internal Medicine Adolescent Medicine; Visit Provider Internal Medicine Adolescent Medicine
DX: I21.4 Non-ST elevation (NSTEMI) myocardial infarction (principal); U07.1 COVID-19; E11.65 Type 2 diabetes mellitus with hyperglycemia; N18.30 Chronic kidney disease, stage 3 unspecified; I10 Essential (primary) hypertension; E11.22 Type 2 diabetes mellitus with diabetic chronic kidney disease; N17.9 Acute kidney failure, unspecified; E78.5 Hyperlipidemia, unspecified
CPT/HCPCS: 36415; 71045; 80053; 80061; 82962; 83735; 84100; 84484; 85025; 85378; 85610; 87636; 93005; 93306; 97162; 97165; G0378

== ENCOUNTER → 2023-06-30 06:10 | Outpatient (CLI) | payer MEDICARE, SELFPAY ==
--- NOTE | 2023-06-30 06:21 | NM_ITS ---
APPROVED REPORT Exam: Nuclear Stress Test Indication: H/O KS, CABG TRIPLE BY PASS, DYSRHYTHMIA, DM, FM HX, A-FIB, C.P., PALPITAIONS, SYNCOPE, FATIGUE, ELEVATED TRIPONIN Patient Location: Outpatient Stress Tech: Libby Daley RI Tech:Mahnaz Cantrell, ARRT RT (R)(N)(M) Ht: 5 ft 11 in Wt: 178 lbs HR: 51 bpm BP: 118/61 mmHg BSA: 2.01 m2 Rhythm: NSR TID: 1.02 BMI: 24.8 History: H/O KS, CABG TRIPLE BYPASS, DYSRHYTHMIA, DM, FM HX, A-FIB, C.P., PALPITAIONS, SYNCOPE, FATIGUE, ELEVATED TROPONIN Procedure: Patient received 0.4 mg of intravenous Lexiscan, resting heart rate 51 bpm, resting blood pressure 118/61 mmHg, with Lexiscan maximum heart rate achieved was 74 bpm which is % of the maximum predicted heart rate and blood pressure was 137/54 mmHg. PT DID C/O C.P. AND SOB WITH LEXISCAN Cardiac Stress and Resting SPECT Images: Cardiac Stress and Resting SPECT images were obtained using technetium 99m Myoview 31.5 mCi stress and 10.20 mCi at rest. Resting and stress imaging in supine and prone positions demonstrate a medium sized, moderate, fixed perfusion defect in the basal to mid inferior and inferolateral LV cohen, as well as a small sized, moderate, fixed perfusion defect in the distal septal LV wall. Gated imaging demonstrates normal global LV systolic function. There is mild hypokinesis of the basal inferior LV wall. LVEF is calculated at 64%. Conclusion: Medium sized, moderate, fixed perfusion defect in the basal to mid inferior and inferolateral LV cohen, as well as a small sized, moderate, fixed perfusion defect in the distal septal LV wall. No evidence of reversible ischemia. Gated imaging demonstrates normal global LV systolic function. There is mild hypokinesis of the basal inferior LV wall. LVEF is calculated at 64%. Electronically signed by : Sarah Thomas MD 06/30/2023 12:09:17
--- NOTE | 2023-06-30 10:24 | CA_ITS ---
APPROVED REPORT Exam: Pharmacologic Technologist: Libby Daley Ht: 5 ft 6 in Wt: 188 lbs BSA: 1.95 m2 HR: 51 bpm BP: 118/61 mmHg Rhythm: NSR Indications: Elevated Triponin Medical History Medications: Lisinopril,,,,, Aspirin,,,,, Metoprolol,,,,, Metformin,,,,, Atorvastatin,,,,, HCTZ,,,,, LanTUS,,,,, Novalog,,,,, ColCHIcine,,,,, Stress Test Details Test: LEXISCAN HR Resting HR: 50 bpm Max Heart Rate (APMHR): 139 bpm Max HR Achieved: 85 bpm Target HR (85% APMHR): 118 bpm % of APMHR: 61 Recovery HR: 64 bpm BP Resting BP: 118.0/61.0 mmHg Max BP: 137.0/54.0 mmHg Recovery BP: 136.0/64.0 mmHg ECG Resting ECG: Sinus bradycardia Stress ECG: No significant ST changes Arrhythmia: Frequent PVCs, couplets, runs of NSVT, PACs Clinical Exercise duration: 04:00 min Highest Stage Achieved: Exercise capacity: 1.0 METs Stress ECG Conclusion Symptoms: Chest Pressure, Nausea, Shortness of Breath Arrhythmias/Ectopy: Frequent PVCs, ventricular couplets, runs of NSVT, PACs ST-T Changes: No significant ST changes Conclusion: Abnormal EKG response to Lexiscan, frequent ventricular ectopy. Myoview images are reported separately. Test Summary REST . . . . . . . Resting REST 05:50 . . 50 . 118/ 61 . . Stage 1 . . . . . . . Myoview Injected Stage 1 01:00 . . 64 . . . . Stage 2 . . . . . . . chest pressure Shortness of Breath Stage 2 01:00 . . 83 . . . . Stage 3 01:00 . . 74 . 137/ 54 . . Stage 4 01:00 . . 63 . . . Stop exercise at 04:00 RECOVERY 01:00 . . 60 . 136/ 62 . . RECOVERY 02:00 . . 70 . 137/ 61 . . RECOVERY 03:00 . . 54 . 127/ 54 . . RECOVERY 04:00 . . 56 . 127/ 54 . . RECOVERY 05:00 . . 64 . 127/ 54 . . RECOVERY 06:00 . . 60 . 127/ 54 . . RECOVERY 07:00 . . 66 . 127/ 54 . . RECOVERY 08:00 . . 58 . 127/ 54 . . RECOVERY 09:00 . . 60 . 136/ 64 . . RECOVERY 09:12 . . 62 . 136/ 64 . . Electronically signed by : Sarah Thomas MD 06/30/2023 12:05:20
== END ==
PROVIDERS: PCP Family Medicine; Visit Provider Nurse Practitioner
DX: I21.4 Non-ST elevation (NSTEMI) myocardial infarction; I25.810 Atherosclerosis of coronary artery bypass graft(s) without angina pectoris; R77.8 Other specified abnormalities of plasma proteins; I10 Essential (primary) hypertension; E78.5 Hyperlipidemia, unspecified; U07.1 COVID-19
CPT/HCPCS: 78452; 93017; A9502; J2785

== ENCOUNTER → 2023-07-14 09:48 | Outpatient (CLI) | payer MEDICARE, SELFPAY ==
[2023-07-14 11:40] LABS: Free Thyroxine Index 3.2 ug/dL (5.93-13.13); T4 (Thyroxine) 7.2 ug/dl (5.53-11.0); Triiodothryronine (T3) Uptake 44 % (23.5-40.5)
[2023-07-14 11:54] LABS: Thyroid Stimulating Hormone 2.86 uIU/mL (0.465-4.68)
[2023-07-15 09:44] LABS: HBsAg Screen Negative (Negative); HCV Ab Non Reactive (Non Reactive); Hep A Ab, IGM Negative (Negative); Hep B Core Ab, IgM Negative (Negative)
[2023-07-15 12:13] LABS: Anti-Cyclic Citrullinated Pept 2 units (0-19)
[2023-07-15 13:10] LABS: Anti-Centromere B Antibodies <0.2 AI (0.0-0.9); Anti-DNA (DS) Ab Qn <1 IU/mL (0-9); Anti-Jo-1 <0.2 AI (0.0-0.9); Anti-Smith Antibody <0.2 AI (0.0-0.9); Antichromatin Antibodies <0.2 AI (0.0-0.9); Antiscleroderma-70 Antibodies <0.2 AI (0.0-0.9); RNP Antibodies <0.2 AI (0.0-0.9); Sjogren's Anti-SS-A <0.2 AI (0.0-0.9); Sjogren's Anti-SS-B <0.2 AI (0.0-0.9); Smith/RNP Antibodies <0.2 AI (0.0-0.9)
[2023-07-15 16:13] LABS: Anti-Cardiolipin Antibody IgG <9 GPL U/mL (0-14)
[2023-07-15 18:04] LABS: Cytoplasmic (C-ANCA) <1:20 titer (Neg:<1:20); Perinuclear (P-ANCA) <1:20 titer (Neg:<1:20)
[2023-07-23 11:51] LABS: Anti-Ro (SS-A) Ab (RDL) < 20; Antinuclear Antibodies, IFA Positive
== END ==
PROVIDERS: Visit Provider Internal Medicine
DX: E11.22 Type 2 diabetes mellitus with diabetic chronic kidney disease (principal); E78.5 Hyperlipidemia, unspecified; I10 Essential (primary) hypertension; I25.10 Atherosclerotic heart disease of native coronary artery without angina pectoris; I5A Non-ischemic myocardial injury (non-traumatic); N18.30 Chronic kidney disease, stage 3 unspecified; U07.1 COVID-19; Z79.4 Long term (current) use of insulin; Z79.899 Other long term (current) drug therapy
CPT/HCPCS: 36415; 80074; 83516; 84436; 84443; 84479; 86038; 86147; 86200; 86225; 86235; 86256

== ENCOUNTER 2023-09-30 15:39 | Outpatient (POV) | payer MEDICARE, SELFPAY | END 2023-09-30 23:59 | disposition home or self-care (01) | LOC: SC 15:40 | PROVIDERS: Visit Provider Dermatology | DX: Z00.00 Encounter for general adult medical examination without abnormal findings (principal) ==

== ENCOUNTER 2025-04-13 14:44 | Outpatient (CLI) | payer MEDICARE, SELFPAY ==
--- OUTSIDE RECORDS SUMMARY | 2025-02-28 10:57 | XMS_ITS | Encounter Summary ---
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] Procedures OR FIX ECTROPION,ENTENSV LID REPAIR REPAIR, ECTROPION, EYELID with full thickness skin graft Hayder Clarke MD [address] [facility] [address] [address] Phone: tel: fax: LUCINA L[facility] [address] [place] [phone] Phone: tel: Referral ID Status Reason Start Date Expiration Date Visits Re quested Visits Authorized [id number] 1 2 Encounter Details Date Type Department Care Team (Latest Contact Info) Description 02/28/2025 10:57 AM EDT - 02/28/2025 5:28 PM EDT Hospital Encounter [facility] [address] [place] [phone] Hayder Clarke MD [address] [facility] [address] [address] 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 No 12/16/2024 Within the last year, have y ou been humiliated or emotionally abused in other ways by your partner or ex-partner? No Within the last year, have y ou been kicked, hit, slapped, or otherwise physically hurt by your partner or ex-partner? No 12/16/2024 Within the last year, have y ou been raped or forced to have any kind of sexual activity by your partner or ex-partner? No 12/16/2024 PHQ-2 Answer Date Recorded Patient Health Questionnaire-2 Score 0 12/06/2024 Hunger Vital Sign Answer Date Recorded Within the past 12 months, y ou worried that your food would run out before you got the money to buy more. Never true 12/17/19 Within the past 12 months, t he food you bought just didn't last and you didn't have money to get more. Never true 12/16/2024 PRAPARE - Transportation Answer Date Re corded In the past 12 months, has l ack of transportation kept you from medical appointments or from getting medications? No 11/28 In the past 12 months, has l ack of transportation kept you from meetings, work, or from getting things needed for daily living? No 12/16/2024 Housing Stability Vital Sign Answer Eliud e Recorded In the last 12 months, was t here a time when you were not able to pay the mortgage or rent on time? No 12/24/2023 In the last 12 months, how many places have you lived? 1 12/24/2023 In the last 12 months, was t here a time when you did not have a steady place to sleep or slept in a [place] (including now)? No 12/24/2023 PHQ-9 Answer Date Recorded Patient Health Questionnaire-9 Score 0 12/06/2024 Housing Stability Vital Sign Answer Eliud e Recorded In the last 12 months, was t here a time when you were not able to pay the mortgage or rent on time? No 12/16/2024 In the past 12 months, how m any times have you moved where you were living? 0 12/16/2024 At any time in the past 12 m onths, were you homeless or living in a [place] facility (including now)? No 12/16/2024 Safety and Environment Answer Date Derrick rded Do you worry that your child may have been physically abused? Patient unable to answer 12/06/2024 Do you worry that your child may have been sexually abused? Patient unable to answer 12/06/2024 Are there any guns kept in o r around your home or where your child spends time? Patient unable to answer 12/06/2024 Guns Unloaded or Locked Away Not on file 06/2025 Utilities Answer Date Recorded In the past 12 months has [facility] [employer], gas, oil, or water company threatened to shut off services in your home? No 12/16/2024 PHQ-2A Answer Date Recorded Patient Health Questionnaire-2 Score 0 08/28/2023 Sex and Gender Information Value Date Recorded Sex Assigned at Not on file Legal Sex Male 6:27 PM EDT Gender Identity Not on file Sexual Orientation Not on file documented as of this encounter Last Filed Vital Signs Vital Sign Reading Time Taken Comments Blood Pressure 116/64 02/28/2025 4:45 PM EDT Pulse 86 02/28/2025 5:00 PM EDT Temperature 36.1 C (97 F) 02/28/2025 4:40 PM EDT Respiratory Rate 18 02/28/2025 5:00 PM EDT Oxygen Saturation 95% 02/28/2025 5:00 PM EDT Inhaled Oxygen Concentration - - Weight 89 kg (196 lb 3.4 oz) 02/28/2025 12:50 PM EDT Height 177.8 cm (5' 10 ) 02/28/2025 12:50 PM EDT Body Mass Index 28.15 02/28/2025 12:50 PM EDT documented in this encounter Functional Status * Calculated C-SSRS Risk Score (Lifetime/Recent) Answer Date of Assessment Author No Risk Indicated 02/28/2025 1:21 PM EDT Viridiana Vásquez RN * Question Answer Date of Assessment Author 1. Wish to be (Past 1 Month) No 025 1:21 PM LAURELT Viridiana Vásquez RN 2. Non-Specific Active Suici stephanie Thoughts (Past 1 Month) No 02/28/2025 1:21 PM EDT Barney Vásquez RN 6. Suicidal Behavior (Lifetime) No 5 1:21 PM EDT Viridiana Vásquez RN documented as of this encounter Discharge Instructions * Discharge Instructions* Eileen Rossi RN - 02/28/2025 4:15 PM EDT Images from the original note were not included. Post-Anesthesia and Postoperative Instructions () In order to have a fast and comfortable recovery at home, please follow these instructions. A responsible adult must be present for you to be discharged. Do not drive, drink alcohol or make important decisions for 24 hours after surgery. You may feel like resting more than normal after surgery. Start slowly and be more active each day. Start slowly with liquids like 7-up, tea, apple juice or broth. Eat more as your stomach allows. Ifyou feel sick to your stomach, go back to drinking liquids. You may feel some discomfort after surgery. Take the medicine as directed by your caregiver. If your medicine makes you drowsy, do not drink alcohol, drive or operate heavy equipment for at least 24 hours after use. If you are taking antibiotics, take them until they are all gone even if you feel well. Cover your wound or bandage when showering, unless your doctor tells you differently. A small amount of drainage on your bandage is normal. Do not remove your bandage unless your doctortells you to. Please keep track of information about the medicines you take. Follow these tips to manage your medicines. Keep a list of all your medicines. Update the list when you start or stop taking a medicine. Write down changes in how you should take them. Carry your medicine list with you at all times. It will be needed if you have a health emergency . Give the list to your family doctor. Take the list to all your doctor visits. Call your doctor if you have any of the following Temperature higher than 101.5??F Chest pain or difficulty breathing Stomach sickness or throwing up that does not go away You cannot urinate by bedtime Pain is not helped by your medicine. Bandage becomes soaked with blood - Don't remove the bandage, reinforce only Swelling, redness, pain or pus from incision Questions or concerns about your surgery. In the event of an emergency, please go to the closest Emergency Room or call the Emergency Department at [phone]. Smoking and its health risks Smoking is the most preventable cause of illness and in the [place]. Cigarettes are filled with poison that goes into the lungs as you inhale. About 440,000 people every year from illnesses caused by smoking. People who smoke earlier than those who do not smoke. Heart and blood vessel disease, lung disease and ulcers are just some of the health problems that may be caused by smoking. Smoking also slows bone and wound healing and may slow your recovery from surgery. For help quitting smoking, call the National [employer] [place]'s Quitline toll free at or ask your doctor for help. Weight Management Weighing too much is not good for your health. Being overweight increases your risk of health conditions such as heart problems, high blood pressure, type 2 diabetes, and certain types of cancer. Being overweight can also increase your risk for osteoarthritis (xb-vmf-nc-wum-FHAV-vcs) (joint disease), sleep apnea (abnormal breathing at night) or other respiratory (breathing) problems. Being overweight may also cause a person to feel sad or be treated differently by others. The best way to lose weight is to eat fewer calories and get regular exercise. Eating more caloriesthan you need will cause you to gain weight. Try to cut down your calories by 500 calories per day.For example, cut down on one soda (about 150 calories), a small bag of regular potato chips (about 150 calories) and one chocolate bar (about 250 calories). For most people, this change will result in a slow weight loss of about one pound a week. Exercise (for example, walk, swim, or bicycle) for at least 30 minutes on most days of the week. You will be more likely to keep weight off if you make lifelong lifestyle changes. Aim for a slow, steady weight loss. Losing even a small amount of weight can lower your risk of health problems. Ask your dietitian, cafe operator or doctor about a weight loss goal that is right for you. Safe Use of Controlled Substances Taking a medicine may be an important part of your treatment. Your body should heal faster if you take medicine safely. Some medicines are called Controlled Substances. This means their use is controlled by law. Some of these can harm you if you do not take them safely. What can I do to make sure I take my medicine safely? Follow the instructions we give you for how to take your medicine. We will give you an instruction sheet for each of your medicines. Ask your doctor or nurse if you do not get these instructions. Some medicines make you sleepy or cloud your thinking. Do not drive, use heavy machines or do dangerous activities while taking these medicines. Read the label on the bottle each time you take your medicine. Do not take your medicine with alcohol or other sedatives. Do not take medicine after the expiration date. It is against the law to sell your medicine or share it with others. Do not drive while using your medicine. How should I store my medicine? Store it in a safe place. This will keep others from taking your medicine and help you keep track of it. Store controlled substances in a cabinet or container that you can lock. Keep it in a place that is cool, dry and out of direct sunlight. Do not leave it in the car. Do not store in a refrigerator or freezer, unless your doctor tells you to. Call your doctor right away if your medicine is lost or stolen. How should I dispose of medicine that is or no longer needed? You may have medicine left over that you do not need or should not take. You must dispose of it theright way to protect yourself and others. You can ask your local pharmacist how to dispose of them.You can also visit these Web sites to learn more about disposal of controlled substances: Drug Enforcement Agency ([place]): http://www.deadiversion.usdoj.gov/drug_disposal/takeback/index.htm National Association of Drug Diversion Investigators (NADDI): http://rxdrugdropbox.org/ [place] Office of Drug Control Policy: http://odcp.ky.gov/Prescription+Drug+Drop+Box+Sites.htm Are there concerns about or ? Before you take a medicine, tell your doctor if you are or plan to get . This could harm your baby. Tell your doctor if you breastfeed. Medicine in breast milk may be bad for your child. What if I have low or impaired vision? If you have vision problems, take extra care with your medicine. Wear your glasses when you take your medicine. Do not take medicine in the dark. What are the signs of overdose? Some controlled substances may cause breathing problems if you take more than your doctor recommends. This may lead to serious health problems or even . You and your caregivers should watch for the following signs of overdose. Slurred speech, confusion or stumbling Feeling dizzy or faint Acting drowsy or groggy Unusual snoring, gasping or snorting during sleep Hard to wake up or keep awake What should I or my caregiver do if I overdose? You or your caregiver should call 911 if you have any of these problems: Cannot wake up Cannot talk after waking up Shortness of breath, slow or light breathing, or breathing has stopped Heartbeat is slow or stopped Gurgling noise comes from the mouth or throat Body is limp or seems lifeless Face is pale or clammy Fingernails or lips look blue or purple What is a ERIC report? [employer] is a system that tracks prescriptions of controlled substances in [place]. The ERIC report tells your doctor if you have been prescribed controlled substances in the past. Doctors must get a ERIC report before prescribing controlled substances. What can I do if the information in my ERIC report is wrong? You or your doctor may contact the dispenser who reported the information to [employer]. If the dispenser agrees that the information should be changed, he or she can fix the ERIC report. However, the dispenser may certify that the report is correct. If that is the case, you or your doctor may then call the [place] Drug Enforcement and Professional Practices Branch at .This will start an investigation of the error. Tips for Quitting Tobacco ([place]) Tobacco and secondhand smoke can cause health problems such as cancer or heart and lung disease. They also make it harder for you to get better after an illness or surgery. Tobacco and tobacco smoke have more than 4000 chemicals. They can hurt you and those near you. Know your ???triggers?? Triggers are danger situations where you have a strong urge to use tobacco. If you know them, you can deal with them. Avoid places where you will see people use tobacco. This is very important when you first start to quit. Plus, secondhand smoke is bad for you. Change habits that give you the urge to use tobacco. If you smoked in the car, drink water instead.If you used tobacco after meals, try taking walks. Stress, anger or sadness can cause you to crave tobacco. Fight the urge by thinking of things that make you relaxed or happy - like your favorite song. The urge will often pass in a few minutes. How to cope with nicotine withdrawal Nicotine in tobacco is very addictive. Nicotine withdrawal can put you in a bad mood and cause you to crave tobacco. This can last for weeks after you quit. There are medicines that can ease these feelings. We can help our patients fight the urge to use tobacco. While you are here, your doctor can get you medicines, nicotine patches or gum. Talk to your doctor about which one is best for you. Let us help you quit You do not have to spend a lot of money to get help. You may even find help for free. Support groups: Your local health department may offer these. [employer]'s resources to help you quit: http://www.[facility]/TobaccoFree/ - Click on the Quit Here! tab. A telephone quit line: (3-712-JATQPUU) Web sites: www.smokefree.gov, www.becomeanex.org, www.[employer] Tobacco Treatment Counselors: Call 066-285-2656. Medicare and Medicaid pay for this. employees, retirees, and their spouses or sponsored dependents can get free nicotine replacementtherapy and coaching. Visit www.[facility]/HR/Wellness/consults.html. [facility]: Free pamphlets on quitting tobacco, secondhand smoke and other health topics. Tell your doctor or nurse if you are want to know more. We can help! You can quit! It is hard to quit tobacco. Most people try to quit a few times before they stay quit for good. It will be easier to quit if you can relax and stay calm in times of stress. Quitting tobacco saves youmoney and your health! documented in this encounter Medications at Time of Discharge Accu-Chek Softclix Lancets lancets 03/10/2021 atorvastatin (Lipitor) 40 MG tablet Take 1 tablet by mouth daily. 02/14/2021 BD Insulin Syringe U/F 31G X 5/16 1 ML misc 03/08/2021 Blood Glucose Monitoring Suppl (Accu-Chek Guide Me) w/Device kit in the morning and at noon and in the evening. for testing. 06/20/2020 Calcium Carbonate-Vitamin D (calcium-vitamin D) 500-200 MG-UNIT tablet Take 1 tablet by mouth daily. erythromycin (Romycin) 5 MG/GM ophthalmic ointment Apply 1 Application to both eyes nightly. 01/08/2024 Fluocinolone Acetonide Scalp 0.01 % oilIndications:Demarcus orrheic dermatitis Apply 1 Application topically 2 (two) times a day. 118.28 mL 1 08/12/2023 glucose blood (Accu-Chek Guide) test strip 10/23/2020 hydroxychloroquine (Plaquenil) 200 MG tablet Take 1 tablet by mouth daily. insulin aspart (NovoLOG FLEXPEN) 100 UNIT/ML injection Pt takes 8units in am, 9units at lunch, 9units with dinner. 02/09/2020 insulin glargine (Lantus) 100 UNIT/ML injection 45 Units nightly. 02/09/2020 insulin pen needle (B-D ULTRAFINE III SHORT PEN) 31G X 8 mm misc 1 each in the morning and 1 each at noon and 1 each in the evening. 11/20/2020 lisinopril 30 MG tablet Take 1 tablet by mouth daily. 03/06/2023 metoprolol tartrate (Lopressor) 25 MG tablet Take by mouth 2 times a day. 12/04/2020 predniSONE (Deltasone) 5 MG tablet Take 1 tablet by mouth daily. 03/15/2024 tobramycin-dexamet hasone (TobraDex) ophthalmic ointment Apply 0.5 inches to both eyes 3 (three) times a day. 3.5 g 03/08/2024 aspirin 81 MG EC tabletIndications: History of stroke,NSTEMI (non-ST elevated myocardial infarction) (CMS/HCC) Take 1 tablet (81 mg) by mouth 1 (one) time each day. 30 tablet 11 07/27/2024 5 betamethasone dipropionate 0.05 % EX cream 5 clobetasol (Temovate) 0.05 % ointment 09/30/2023 5 colchicine 0.6 MG tablet Take 1 tablet (0.6 mg) by mouth in the morning. 02/21/2023 5 fluticasone (Flonase) 50 MCG/ACT nasal spray 06/06/2023 5 documented as of this encounter Miscellaneous Notes * Anesthesia PACU Signout - Abena Watson MD - 02/28/2025 4:47 PM EDT Patient: Sigifredo Ortega Anesthesia Type: general Vitals Value Taken Time BP 116/64 02/28/25 16:45 Temp 36.1 ??C (97 ??F) 02/28/25 16:40 Pulse 84 02/28/25 16:46 Resp 17 02/28/25 16:46 SpO2 93 % 02/28/25 16:46 Vitals shown include unfiled device data. Anesthesia PACU Signout Patient location during evaluation: PACU Patient participation: complete - patient participated Level of consciousness: baseline and awake Pain management: adequate (pain score 0-3) Airway patency: natural airway Hydration status: acceptable PONV: none Cardiovascular status: acceptable and hemodynamically stable Respiratory status: acceptable, spontaneous ventilation, unassisted and nonlabored ventilation Discharge Disposition: home * Eileen Latham RN - 02/28/2025 4:15 PM EDT Images from the original note were not included. 776 Home Care after Eyelid Surgery How will I care for myself after surgery? Cold compress. Keep cold on your wound as much as you can for 2-3 days. Do not apply ice directly on the skin. You can use either: ?? A folded washcloth soaked in ice water and wrung out ?? A bag of frozen peas The first week after surgery. ?? Do not rub near the incision. ?? Do not get water on the incision. ?? Do not lift anything that weighs more than 15 lbs. Eye ointment. You should get a tube of eye ointment after surgery. ?? Do not rub it on. Apply it straight from the tube. ?? Apply it to the stitches 2 times a day. ?? The ointment is eye-friendly. It is OK to get some in your eye. This may cause blurred vision, but it should go away once you stop using the ointment. ?? Do not pull eyelid off eye to apply ointment to wounds. Apply to the eye and the ointment will spread on its own and cover the wounds. Eye shield. Wear it at bedtime over your operated eye. Your doctor will tell you when to stop Eye patch. If you have a patch taped over your eye, do not use cold compresses or ointment. Leave the patch alone. Your doctor will remove the patch at your follow up. Sleeping or lying down. Always keep your head raised above your chest. This will help prevent swelling. ?? Keep your head raised on 2-3 pillows. ?? Make sure your eyelid or cheek does not rub on anything. Bleeding. It is normal to have some ooze or drainage from the wound. Do not try to clean dry blood from the wound. This may cause more bleeding. Call the doctor if bleeding does not stop. How can I control pain? ?? Extra Strength Tylenol is the only pain medicine needed after most eyelid surgeries. ?? For more complex surgeries, the doctor may prescribe a pain medicine. In that case, you may choose to take either the prescription pain medicine or the Tylenol, but not both together. ?? Unless your doctor says otherwise, you should avoid all other pain medicines for at least 1 weekafter surgery. So the list of medicines to avoid includes aspirin, ibuprofen, Advil, Nuprin, Motrin, Bufferin, Anacin and Excedrin. ?? You should keep taking your other prescribed medicines (except blood thinners) as ordered. How do I avoid problems after anesthesia? Most of these surgeries are done with local anesthesia and IV sedation. In rare cases, patients have nausea after this anesthesia. To avoid this, follow these tips: ?? Start by drinking only clear liquids after surgery. Some examples are water, sports drinks, 7-Up, and valeria stalin. ?? If you handle clear liquids with no stomach sickness, you may start eating your normal foods. ?? Avoid ?fatty foods? the day of your surgery or if you have any stomach sickness. Some examples are milk, pizza and hamburgers. When do I follow up with my doctor? ?? We will call you the day after surgery to check on you and to schedule your follow up. ?? Your first follow up will be 1-2 weeks after surgery. If needed, the doctor will remove the patch and stitches. When should I call the doctor? Call the doctor?s office right away if you have any of these: ?? Signs of infection: skin near the wound is red, swollen, warm or painful; or drainage smells bad ?? Bleeding that does not stop o It is normal to have some oozing or drainage. o Do not clean dried blood from the incision - this may cause more bleeding. ?? Temperature over 100??F ?? Very bad pain that is not help by medicine ?? Sudden loss of vision - it is normal for vision to be a little blurry ?? Double vision On weekdays from 8 am to 5 pm you can call the [facility] at [phone] Clarke's tactical deception plans officer at [phone]. Nights, weekends or holidays, call [phone] and ask for the eye surgeon control room agent. * Op Note - Hayder Clarke MD - 02/28/2025 3:11 PM EDT Operative Note Date: 02/28/25 Location: [facility] OR Name: Sigifredo Ortega : 1940, PREOPERATIVE DIAGNOSES: 1. 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 POSTOPERATIVE DIAGNOSES: 1. 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 PROCEDURES PERFORMED: 1. Left lower eyelid cicatricial ectropion repair. 2. Left lower eyelid full-thickness skin graft 3.5 cm x 1.5 cm 3. Left Jimenez suture placement. ANESTHESIA: General anesthesia. ATTENDING SURGEON: Hayder Clarke MD, who was present, scrubbed and actively participated in all portions of the procedure. DIETARY SERVER SURGEON: Lois Nicole MD ESTIMATED BLOOD LOSS: Approximately 5 mL. COMPLICATIONS: None. SPECIMENS: None. DISPOSITION: Stable and sent to PACU. 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 DESCRIPTION OF PROCEDURE: After informed consent was obtained and the patient was identified in the preoperative holding area as Sigifredo Ortega , he was taken to the operating room and placed in supine position. General anesthesia was commenced and then a local anesthetic and epinephrine mixture was injected into left lower eyelid, the Left upper eyelid, the left lateral canthal region, and the right preauricular area. The patient was then prepped and draped in the usual standard sterile ophthalmic fashion. It should be noted that a timeout was performed prior to beginning this procedure, and after identifying the patient by his name, hospital number and operative sites, all were in agreement. Corneal eye culver with eye antibiotic ointment inside of each eye shield were placed over each eye preoperatively. Attention was first directed to the left lower eyelid cicatricial ectropion repair, whereby a #15 Bard-Carlos A blade subciliary incision was made 2 mm below the eyelash margin, across most of the horizontal extent of the left lower eyelid, and carried out into the left lateral canthal region for approximately 5 mm. Cal scissors dissection was carried out between the orbicularis muscle and the orbital septum to the inferior orbital rim. The left lower eyelid elevated. The inferior ramus of the left lateral canthal tendon was severed with sharp dissection. A full-thickness excision over the lateral aspect of the left lower eyelid was performed with straight iris scissors dissection. The left lower eyelid was approximated to the internal aspect of the left lateral orbital rim periosteum with two interrupted 5-0 Vicryl sutures. The left corneal eye shield was removed and a Jimenez suture was used and a 4-0 silk suture was placed between the left upper and lower eyelids and tied on the right upper eyelid. It provided continuous upward traction of the left lower eyelid, and there was an anterior lamella defect. A right preauricular skin graft was harvested with #15 Bard-Carlos A blade and Cal scissors dissection and was approximately 3.5 cm in length by 1.5 cm in width. The donor site was closed with interrupted 5-0 Monocryl sutures. The full-thickness skin graft was placed on the left lower eyelid anterior lamella defect and sutured in place with interrupted 6-0 plain gut sutures and 2 separate running 6-0 plain gut sutures. The right corneal eye shield was removed and eye antibiotic ointment was applied to the surgical wounds. A piece of Xeroform dressing was applied over the left lower eyelid full-thickness skin graft along with a moderate pressure patch dressing. The patient was awoken from anesthesia and taken to the postoperative care unit. Postoperative instructions and follow-up care were outlined and our contact details were available. * H&P - Hayder Clarke MD - 02/27/2025 9:37 PM EDT Images from the original note were not included. History Of Present Illness Sigifredo Ortega is a 84 y.o. 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), IBS (irritable bowel syndrome), Sciatica, Sleep apnea, and Vasculitis(CMS/HCC). He has no past medical history of Adverse effect of anesthesia, Malignant hyperthermia, or Tuberculosis. Surgical History He has a past surgical history that includes Malignant skin lesion excision (N/A); Coronary artery bypass graft (N/A); Shoulder surgery (N/A); Foot surgery (N/A); Ectropion repair (Bilateral); and Cholecystectomy. Family History Family History[1] Social History He reports that he quit smoking about 45 years ago. His smoking use included cigarettes. He startedsmoking about 65 years ago. He has a 10 pack-year smoking history. He has been exposed to tobacco smoke. He has never used smokeless tobacco. He reports that he does not drink alcohol and does not use drugs. Occupational History Occupational history[2] Employer: No address on file. Travel History Relevant International Travel History: Travel Screening No screening recorded since 02/26/252136 Travel History Travel since 01/27/25 No documented travel since 01/27/25 Relevant Domestic Travel History: see chart Immunizations reviewed VACCINE / DOSE DATE DATE DATE DATE DATE DATE Flu 05/22/2017 07/24/2018 06/22/2019 05/29/2020 06/20/2021 06/30/2022 Tetanus 03/23/2021 Pneumovax 07/25/2018 08/27/2019 Shingles Allergies Morphine and Penicillins Medications Current Medications[3] Review of Systems Constitutional: Negative. HENT: Negative. Eyes: Negative. Respiratory: Negative. Cardiovascular: Negative. Gastrointestinal: Negative. Endocrine: Negative. Genitourinary: Negative. Musculoskeletal: Negative. Skin: Negative. Allergic/Immunologic: Negative. Neurological: Negative. Hematological: Negative. Psychiatric/Behavioral: Negative. Physical Exam Vitals reviewed. Constitutional: Appearance: Normal appearance. Eye: Exposure keratopathy left eye (OS), left lower lid (LLL) cicatricial ectropion HENT: Head: Normocephalic. Nose: Nose normal. Cardiovascular: Rate and Rhythm: Normal rate and regular rhythm. Pulmonary: Effort: Pulmonary effort is normal. Abdominal: General: Abdomen is flat. Musculoskeletal: Cervical back: Neck supple. Skin: General: Skin is dry. Neurological: Mental Status: She is oriented to person, place, and time. Psychiatric: Mood and Affect: Mood normal. Last Recorded Vitals Weight 87.1 kg (192 lb). Relevant Results reviewed Assessment and Plan Exposure keratopathy left eye (OS) Left lower lid (LLL) cicatricial ectropion Proceed with left lower lid (LLL) cicatricial ectropion repair with left lower lid (LLL) FTSG and Jimenez suture placement [1] Family History Problem Relation Name Age of Onset Heart attack Father Prostate cancer Father Multiple sclerosis Other Anesthesia problems Neg Hx Malig Hyperthermia Neg Hx [2] [3] No current facility-administered medications for this encounter. Current Outpatient Medications Medication Sig Dispense Refill atorvastatin (Lipitor) 40 MG tablet Take 1 tablet by mouth daily. Calcium Carbonate-Vitamin D (calcium-vitamin D) 500-200 MG-UNIT tablet Take 1 tablet by mouth daily. erythromycin (Romycin) 5 MG/GM ophthalmic ointment Apply 1 Application to both eyes nightly. Fluocinolone Acetonide Scalp 0.01 % oil Apply 1 Application topically 2 (two) times a day. 118.28 mL 1 hydroxychloroquine (Plaquenil) 200 MG tablet Take 1 tablet by mouth daily. insulin aspart (NovoLOG FLEXPEN) 100 UNIT/ML injection Pt takes 8units in am, 9units at lunch, 9units with dinner. insulin glargine (Lantus) 100 UNIT/ML injection 45 Units nightly. lisinopril 30 MG tablet Take 1 tablet by mouth daily. metoprolol tartrate (Lopressor) 25 MG tablet Take by mouth 2 times a day. predniSONE (Deltasone) 5 MG tablet Take 1 tablet by mouth daily. tobramycin-dexamethasone (TobraDex) ophthalmic ointment Apply 0.5 inches to both eyes 3 (three) times a day. 3.5 g 0 Accu-Chek Softclix Lancets lancets aspirin 81 MG EC tablet Take 1 tablet (81 mg) by mouth 1 (one) time each day. (Patient not taking: Reported on 02/23/2025) 30 tablet 11 BD Insulin Syringe U/F 31G X 02/11 1 ML misc betamethasone dipropionate 0.05 % EX cream (Patient not taking: Reported on 02/23/2025) Blood Glucose Monitoring Suppl (Accu-Chek Guide Me) w/Device kit in the morning and at noon and in the evening. for testing. clobetasol (Temovate) 0.05 % ointment (Patient not taking: Reported on 02/23/2025) colchicine 0.6 MG tablet Take 1 tablet (0.6 mg) by mouth in the morning. (Patient not taking: Reported on 02/23/2025) fluticasone (Flonase) 50 MCG/ACT nasal spray (Patient not taking: Reported on 02/23/2025) glucose blood (Accu-Chek Guide) test strip insulin pen needle (B-D ULTRAFINE III SHORT PEN) 31G X 8 mm misc 1 each in the morning and 1 each at noon and 1 each in the evening. * Preprocedure Instructions - Dorys Terry RN - 02/23/2025 2:11 PM EDT Home Medication Instructions Current Medications Medication Instructions atorvastatin (Lipitor) 40 MG tablet Take morning of surgery Calcium Carbonate-Vitamin D (calcium-vitamin D) 500-200 MG-UNIT tablet Hold day of surgery erythromycin (Romycin) 5 MG/GM ophthalmic ointment Take as needed Fluocinolone Acetonide Scalp 0.01 % oil Hold day of surgery hydroxychloroquine (Plaquenil) 200 MG tablet Take morning of surgery insulin aspart (NovoLOG FLEXPEN) 100 UNIT/ML injection Hold day of surgery insulin glargine (Lantus) 100 UNIT/ML injection Take 1/2 usual dose of your insulin night before surgery lisinopril 30 MG tablet Hold day of surgery metoprolol tartrate (Lopressor) 25 MG tablet Take morning of surgery predniSONE (Deltasone) 5 MG tablet Take morning of surgery tobramycin-dexamethasone (TobraDex) ophthalmic ointment Take as needed General Preoperative Instructions You will be called the business day before surgery with your arrival time Do not eat after midnight. Encouraged to drink clear liquids up until 2 hours prior to arrival time. No alcohol or smoking prior to surgery Arrive on time to avoid delays Parking/Registration procedure explained You MUST have a responsible adult available for transport to and from hospital Visitation policy for the day of surgery reviewed Bring insurance card, photo ID, along with power of assistant prosecuting attorney, guardianship or advanced directives if applicable Do not bring money, jewelry or other valuables Hibiclens bathing instructions reviewed if applicable Notify surgeon of fever, illness, any changes or if you decide not to have surgery Diabetes Instructions (If applicable) Take diabetes medication as instructed You may have up to 4 ounces of apple juice 2 hours prior to arrival for surgery for low glucose Updated from previous PAT evaluation on 06/28/24. No changes in health history or medications. * PAT Phone Note - Dorys Terry RN - 02/23/2025 2:11 PM EDT HPI Sigifredo Ortega is a 84 y.o. 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 Date scheduled is 02/28/2025. Medical History[1] Family History[2] Social History[3] SURGICAL HISTORY: Surgical History[4] Allergies[5] MEDICATIONS: No current facility-administered medications for this encounter. Current Outpatient Medications: atorvastatin, Take 1 tablet by mouth daily. calcium-vitamin D, Take 1 tablet by mouth daily. erythromycin, Apply 1 Application to both eyes nightly. Fluocinolone Acetonide Scalp, Apply 1 Application topically 2 (two) times a day. hydroxychloroquine, Take 1 tablet by mouth daily. NovoLOG FLEXPEN, Pt takes 8units in am, 9units at lunch, 9units with dinner. Lantus, 45 Units nightly. lisinopril, Take 1 tablet by mouth daily. metoprolol tartrate, Take by mouth 2 times a day. predniSONE, Take 1 tablet by mouth daily. TobraDex, Apply 0.5 inches to both eyes 3 (three) times a day. Accu-Chek Softclix Lancets, aspirin, Take 1 tablet (81 mg) by mouth 1 (one) time each day. (Patient not taking: Reported on 02/23/2025) BD Insulin Syringe U/F, betamethasone dipropionate, Accu-Chek Guide Me, in the morning and at noon and in the evening. for testing. clobetasol, colchicine, Take 1 tablet (0.6 mg) by mouth in the morning. (Patient not taking: Reported on 02/23/2025) fluticasone, Accu-Chek Guide, B-D ULTRAFINE III SHORT PEN, 1 each in the morning and 1 each at noon and 1 each in the evening. Dorys Terry RN [1] Past Medical History: Diagnosis Date Atherosclerotic heart disease of [place] coronary artery without angina pectoris B12 deficiency Basal cell carcinoma (BCC) of skin of nose 08/12/2023 COVID-19 06/20/2023 Diabetes (CMS/HCC) IBS (irritable bowel syndrome) Sciatica Sleep apnea Vasculitis (CMS/HCC) [2] Family History Problem Relation Name Age of Onset Heart attack Father Prostate cancer Father Multiple sclerosis Other Anesthesia problems Neg Hx Malig Hyperthermia Neg Hx [3] Social History Tobacco Use Smoking status: Former Current packs/day: 0.00 Average packs/day: 0.5 packs/day for 20.0 years (10.0 ttl pk-yrs) Types: Cigarettes Start date: 1959 Quit date: 1979 Years since quittin.4 Passive exposure: Past Smokeless tobacco: Never Vaping Use Vaping status: Never Used Substance Use Topics Alcohol use: Never Drug use: Never [4] Past Surgical History: Procedure Laterality Date CHOLECYSTECTOMY CORONARY ARTERY BYPASS GRAFT N/A ECTROPION REPAIR Bilateral FOOT SURGERY N/A MALIGNANT SKIN LESION EXCISION N/A SHOULDER SURGERY N/A [5] Allergies Allergen Reactions Morphine Anaphylaxis Penicillins Unknown - Patient states they do not know rxn details From Childhood- patient denies, has taken penicillin without reaction documented in this encounter Plan of Treatment Not on file documented as of this encounter Procedures Procedure Name Priority Date/Time Associated Diagnosis Comments POCT GLUCOSE METER UNSOLICITED RESULTS Routine 02/28/2025 4:38 PM EDT APPLICATION, GRAFT, SKIN, FULL-THICKNESS, TO EYELID 02/28/2025 2:50 PM EDT 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 OR FIX ECTROPION,ENTENSV LID REPAIR 02/28/2025 2:50 PM EDT 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 If the capillary glucose result is not consistent with the patient's clinical signs and symptoms, glucose testing should be repeated with either an arterial or venous sample on the glucometer or sent to the main labortory for testing. Comment 02/28/2025 4:40 PM EDT [facility] Vault Cashier ID Eileen Rossi 025 4:40 PM EDT HEALTHCARE [facility] Device ID [id number] 02/28/2025 4:40 PM EDT [facility] Specimen Type POC Capillary 02/28/2025 4:40 PM EDT [facility] Blood Capillary blood specimen / Unknown 02/28/2025 4:38 PM EDT 02/28/2025 4:40 PM EDT Hayder Clarke MD LAB POINT OF CARE TE ST DOCKED DEVICE UNSOLICITED RESULTS Final Result [facility] [address] [place] [address] * POCT glucose meter (02/28/2025 2:47 PM EDT) [facility] POCT Glucose 93 74 - 99 mg/dL 02/28/2025 2:49 PM EDT [facility] Comment:Accuracy of a glucos e result obtained from a capillary whole blood specimen relies upon adequate, non-compromised capillary blood flow. If the capillary glucose result is not consistent with the patient's clinical signs and symptoms, glucose testing should be repeated with either an arterial or venous sample on the glucometer or sent to the main labortory for testing. Comment 02/28/2025 2:49 PM EDT [facility] Vault Cashier ID Gissel Daniels 02/28/2025 2:49 PM EDT [facility] Device ID [id number] 02/28/2025 2:49 PM EDT [facility] Specimen Type POC Capillary 02/28/2025 2:49 PM EDT [facility] Blood Capillary blood specimen / Unknown 02/28/2025 2:47 PM EDT 02/28/2025 2:49 PM EDT Hayder Clarke MD LAB POINT OF CARE TE ST DOCKED DEVICE UNSOLICITED RESULTS Final Result Performing Organization Address City/[facility] Co de Phone Number [facility] [address] [place] [address] * (ABNORMAL) POCT glucose meter (02/28/2025 2:11 PM EDT) POCT Glucose 71(L) 74 - 99 mg/dL 02/28/2025 2:12 PM EDT [facility] Comment:Accuracy of a glucos e result obtained from a capillary whole blood specimen relies upon adequate, non-compromised capillary blood flow. If the capillary glucose result is not consistent with the patient's clinical signs and symptoms, glucose testing should be repeated with either an arterial or venous sample on the glucometer or sent to the main labortory for testing. 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.115]- Primary Exposure keratopathy [H18.9] Exposure keratoconjunctivitis Ectropion of both lower eyelids Exposure keratopathy Exposure keratoconjunctivitis documented in this encounter Admitting Diagnoses Diagnosis Ectropion of both lower eyelids Exposure keratopathy Exposure keratoconjunctivitis documented in this encounter Administered Medications Inactive Administered Medications - up to 3 most recent administrations Medication Order MAR Action Action Date Dose Rate Site acetaminophen (Tylenol) tablet 1,000 mg 1,000 mg, Oral, Once as needed, 1 dose, Starting on Fri02/28/25 at 1555, Until Fri02/28/25 at 1710, Routine, Recovery (Phase I only), pain score of >1 out of 10 Given 02/28/2025 5:10 PM EDT 1,000 mg aprepitant (Emend) capsule 40 mg 40 mg, Oral, Once, 1 dose, On Fri02/28/25 at 1400, Routine, Holding - Preprocedure Given 02/28/2025 1:56 PM EDT 40 mg fentaNYL (Sublimaze) injection 25 mcg 25 mcg, Intravenous, Every 5 min PRN, 2 doses, Starting on Fri02/28/25 at 1555, Until Fri02/28/25 at 1929, Routine, Recovery (Phase I only), pain score of 3-4 out of 10 HYDROmorphone (Dilaudid) injection 0.5 mg 0.5 mg, Intravenous, Every 10 min PRN, 2 doses, Starting on Fri02/28/25 at 1555, Until Fri02/28/25 at 1929, Routine, Recovery (Phase I only), pain score of 9-10 out of 10 lidocaine (Xylocaine) 1 % injection 0.5 mL 0.5 mL, Injection, Once as needed, 1 dose, Starting on Fri02/28/25 at 1306, Until Fri02/28/25 at 1356, Routine, Holding - Preprocedure, If needed to start an IV. Given 02/28/2025 1:56 PM EDT 0.5 mL ondansetron (Zofran) injection 4 mg 4 mg, Intravenous, Once as needed, 1 dose, Starting on Fri02/28/25 at 1555, Until Fri02/28/25 at 1929, Routine, Recovery (Phase I only), nausea, vomiting ondansetron ODT (Zofran-ODT) disintegrating tablet 4 mg 4 mg, Oral, Once, 1 dose, On Fri02/28/25 at 1400, Routine, Holding - Preprocedure Given 02/28/2025 1:56 PM EDT 4 mg sodium chloride 0.9 % flush 10 mL 10 mL, Intravenous, Every 8 hours PRN, Starting on Fri02/28/25 at 1306, Until Fri02/28/25 at 1929, Routine, Holding - Preprocedure, line care sodium chloride 0.9 % flush 10 mL 10 mL, Intravenous, As needed, Starting on Fri02/28/25 at 1306, Until Fri02/28/25 at 1929, Routine, Holding - Preprocedure, line care documented in this encounter Active and Recently Administered Medications Times are shown in EDT. Scheduled Medication Order 02/26/2025 02/27/2025 02/28/2025 aprepitant (Emend) capsule 40 mg (COMPLETED) 40 mg, Oral, Once, 1 dose, On Fri02/28/25 at 1400, Routine, Holding - Preprocedure 1356 (Given - Provid er: Viridiana Vásquez RN) ondansetron ODT (Zofran-ODT) disintegrating tablet 4 mg (COMPLETED) 4 mg, Oral, Once, 1 dose, On Fri02/28/25 at 1400, Routine, Holding - Preprocedure 1356 (Given - Provid er: Viridiana Vásquez RN) PRN Medication Order 02/26/2025 02/27/2025 02/28/2025 acetaminophen (Tylenol) tablet 1,000 mg (COMPLETED) 1,000 mg, Oral, Once as needed, 1 dose, Starting on Fri02/28/25 at 1555, Until Fri02/28/25 at 1710, Routine, Recovery (Phase I only), pain score of >1 out of 10 1709 (Given - Provid er: Eileen Rossi RN) erythromycin (Romycin) 5 MG/GM ophthalmic ointment (CANCELED) As needed, Starting on Fri02/28/25 at 1529, Until Fri02/28/25 at 1610, Routine 1529 (Given - Provid er: Hayder Clarke MD - Comment: on intraoperative field) fentaNYL (Sublimaze) injection 25 mcg 25 mcg, Intravenous, Every 5 min PRN, 2 doses, Starting on Fri02/28/25 at 1555, Until Fri02/28/25 at 1929, Routine, Recovery (Phase I only), pain score of 3-4 out of 10 HYDROmorphone (Dilaudid) injection 0.5 mg 0.5 mg, Intravenous, Every 10 min PRN, 2 doses, Starting on Fri02/28/25 at 1555, Until Fri02/28/25 at 1929, Routine, Recovery (Phase I only), pain score of 9-10 out of 10 lidocaine (Xylocaine) 1 % injection 0.5 mL (COMPLETED) 0.5 mL, Injection, Once as needed, 1 dose, Starting on Fri02/28/25 at 1306, Until Fri02/28/25 at 1356, Routine, Holding - Preprocedure, If needed to start an IV. 1356 (Given - Provid er: Viridiana Vásquez RN) lidocaine-EPINEPHrine (Xylocaine W/EPI) 1 %-1:[id number] injection (CANCELED) As needed, Starting on Fri02/28/25 at 1515, Until Fri02/28/25 at 1610, Routine, Intraprocedure 1515 (Given - Provid er: Hayder Clarke MD) ondansetron (Zofran) injection 4 mg 4 mg, Intravenous, Once as needed, 1 dose, Starting on Fri02/28/25 at 1555, Until Fri02/28/25 at 1929, Routine, Recovery (Phase I only), nausea, vomiting sodium chloride 0.9 % flush 10 mL(Linked Group 1) 10 mL, Intravenous, Every 8 hours PRN, Starting on Fri02/28/25 at 1306, Until Fri02/28/25 at 1929, Routine, Holding - Preprocedure, line care sodium chloride 0.9 % flush 10 mL(Linked Group 1) 10 mL, Intravenous, As needed, Starting on Fri02/28/25 at 1306, Until Fri02/28/25 at 1929, Routine, Holding - Preprocedure, line care sterile water irrigation solution (CANCELED) As needed, Starting on Fri02/28/25 at 1529, Until Fri02/28/25 at 1610, Routine 1529 (Given - Provid er: Hayder Clarke MD - Comment: on intraoperative field) Linked Groups Order Group 1: Insert peripheral IV (CANCELED) Once, On Fri02/28/25 at 1307, For 1 occurrence, Holding - Preprocedure And Saline lock IV (CANCELED) Once, On Fri02/28/25 at 1307, For 1 occurrence, Holding - Preprocedure And sodium chloride 0.9 % flush 10 mLJump to med 10 mL, Intravenous, Every 8 hours PRN, Starting on Fri02/28/25 at 1306, Until Fri02/28/25 at 1929, Routine, Holding - Preprocedure, line care And sodium chloride 0.9 % flush 10 mLJump to med 10 mL, Intravenous, As needed, Starting on Fri02/28/25 at 1306, Until Fri02/28/25 at 1929, Routine, Holding - Preprocedure, line care documented in this encounter Additional Health Concerns Assessment Noted Time PHQ-9 Depression Total Score: 0 12/07/19 3:39 PM EDT A fall risk assessment has been complete d for the patient 12/16/2024 10:30 AM EDT A Body Mass Index follow-up plan has been documented for the patient 01/25/2025 12:30 PM EDT documented as of this encounter Care Teams Marketing Reporting Analyst Relationship Specialty Start Date End Date Maryanne Wong MD [address] [place] [address] PCP - General Family Medicine 08/12/23 documented as of this encounter
--- OUTSIDE RECORDS SUMMARY | 2025-02-28 14:25 | XMS_ITS | Encounter Summary ---
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] Procedures IA FIX ECTROPION,ENTENSV LID REPAIR REPAIR, ECTROPION, EYELID with full thickness skin graft Hayder Clarke MD [address] [place] [phone] Phone: tel: fax: LUCINA [facility] [address] [place] [phone] Phone: tel: Referral ID Status Reason Start Date Expiration Date Visits Re quested Visits Authorized [id number] 1 2 Encounter Details Date Type Department Care Team (Late st Contact Info) Description 02/28/2025 2:25 PM EDT - 02/28/2025 3:15 PM EDT Surgery PAV [facility] [address] [place] [address] Hayder Clarke MD [address] [place] [phone] REPAIR, ECTROPION, EYELID [34928 (CPT )] Surgery Details Date/Time Status Location OR Service Patient Class Case Class Case Type Trauma Case? 02/28/2025 2:25 PM Posted [id number] E-Electi ve Panel 1 Procedure LRB Anes Op Region Wound Class Comments REPAIR, ECTROPION, EYELID Left General [id number] 35 min with full thickness skin graft [...] place to sleep or slept in a long term (including now)? No 12/24/2023 PHQ-9 Answer Date [...] any time in the past 12 m [facility], were you homeless or living in a long term (including now)? No 12/16/2024 Safety and Environment [...] Recorded In the past 12 months has [facility] [employer], gas, oil, or water company threatened to [...] Room or call the Emergency Department at [phone]. Smoking and its health risks Smoking is [...] help quitting smoking, call the National Cancer [employer]'s Quitline toll free at or ask your doctor for help. Weight Management Weighing too much is not good for your health. Being overweight increases your risk of health conditions such as heart problems, high blood pressure, type 2 diabetes, and certain types of cancer. Being overweight can also increase your risk for osteoarthritis (bp-xje-hb-hio-KEPZ-uwm) (joint disease), sleep apnea (abnormal breathing at [...] risk of health problems. Ask your dietitian, coordinator integrated marketing or doctor about a weight loss goal [...] of controlled substances: Drug Enforcement Agency (MEHNAZ): http://www.deadiversion.[facility].gov/drug_disposal/takeback/index.htm National Association of Drug Diversion Investigators (NADDI): http://rxdrugdropbox.org/ [place] Office of Drug Control Policy: http://odcp.ky.gov/Prescription+Drug+Drop+Box+Sites.htm Are [...] look blue or purple What is a [facility] report? [facility] is a system that tracks prescriptions of controlled substances in [place]. The ERIC report tells your doctor if [...] or your doctor may then call the [place] Drug Enforcement and Professional Practices Branch at [...] these. 's resources to help you quit: http://www.[facility]/TobaccoFree/ - Click on the Quit Here! tab. A telephone quit line: (1-875-VRBWKKI) Web sites: www.smokefree.gov, www.becomeanex.org, www.[employer] Tobacco Treatment Counselors: Call 391-362-0837. Medicare and Medicaid pay for this. employees, retirees, and their spouses or sponsored dependents can get free nicotine replacementtherapy and coaching. Visit www.[facility]/HR/Wellness/consults.html. [facility]: Free pamphlets [...] you can call the Eye [facility] at [phone] Clarke's office rn at [phone]. Nights, weekends or holidays, call [phone] and ask for the eye surgeon information clerk cashier. * Op Note - Hayder Clarke MD - 02/28/2025 3:11 PM EDT Operative Note Date: 02/28/25 Location: [facility] OR Name: Sigifredo Ortega, : 1940, PREOPERATIVE [...] participated in all portions of the procedure. 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 POCT GLUCOSE METER UNSOLICITED RESULTS Routine 02/28/2025 2:47 PM EDT POCT GLUCOSE METER UNSOLICITED RESULTS Routine 02/28/2025 2:11 PM EDT documented in this encounter Results * POCT glucose meter (02/28/2025 4:38 PM EDT) Pathologist [facility] POCT Glucose 90 74 - 99 mg/dL [...] Comment 02/28/2025 4:40 PM EDT HEALTH[facility]ARE [facility] Supervisor Self Service Store ID Eileen Rossi 025 4:40 PM EDT [facility] Device ID [id number] 02/28/2025 4:40 PM EDT [facility] Specimen Type POC Capillary 02/28/2025 4:40 PM EDT [facility] Blood Capillary blood specimen / Unknown 02/28/2025 4:38 PM EDT 02/28/2025 4:40 PM EDT Hayder Clarke MD LAB POINT OF CARE TE ST DOCKED DEVICE UNSOLICITED RESULTS Final Result [facility] [address] [place] [address] * POCT glucose meter (02/28/2025 2:47 PM EDT) [facility] POCT Glucose 93 74 - 99 mg/dL [...] Comment 02/28/2025 2:49 PM EDT HEALTHCARE LAB Supervisor Self Service Store ID Gissel Daniels 02/28/2025 2:49 PM EDT HEALTHCARE LAB Device ID [id number] 02/28/2025 2:49 PM EDT [facility] Specimen Type POC Capillary 02/28/2025 2:49 PM EDT [facility]ALTH[facility]ARE [facility] Blood Capillary blood specimen / Unknown 02/28/2025 2:47 PM EDT 02/28/2025 2:49 PM EDT Hayder Clarke MD LAB POINT OF CARE TE ST DOCKED DEVICE UNSOLICITED RESULTS Final Result Performing Organization Address City/[facility]/ZIP Co de Phone Number HEALTHCARE LAB [address] [place] [address] * (ABNORMAL) POCT glucose meter (02/28/2025 2:11 PM EDT) [facility] POCT Glucose 71(L) 74 - 99 mg/dL [...] Comment 02/28/2025 2:12 PM EDT HEALTHCARE LAB Supervisor Self Service Store ID Viridiana Vásquez 02/28/2025 2:12 PM EDT HEALTHCARE LAB Device ID [id number] 02/28/2025 2:12 PM EDT HE[facility]ARE [facility] Specimen Type POC Capillary 02/28/2025 2:12 PM EDT [facility] Blood Capillary blood specimen / Unknown 02/28/2025 2:11 PM EDT 02/28/2025 2:12 PM EDT us Hayder Clarke MD LAB POINT OF CARE TE ST DOCKED DEVICE UNSOLICITED RESULTS Final Result [facility] [address] [place] [id number] documented in this encounter Visit Diagnoses Diagnosis [...] EDT 0.5 mL lidocaine-EPINEPHrine (Xylocaine W/EPI) 1 %-1:382066 injection As needed, Starting on Fri02/28/25 at [...] Viridiana Vásquez RN) lidocaine-EPINEPHrine (Xylocaine W/EPI) 1 %-1:868122 injection (CANCELED) As needed, Starting on Fri02/28/25 [...] documented as of this encounter Care Teams Consulting Services Manager Relationship Specialty Start Date End Date Maryanne Wong MD [address] [place] [phone] PCP - General Family Medicine 08/12/23 documented as of this encounter
--- OUTSIDE RECORDS SUMMARY | 2025-02-28 14:54 | XMS_ITS | Encounter Summary ---
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 [H18.9] Procedures AK FIX ECTROPION,ENTENSV LID REPAIR REPAIR, ECTROPION, EYELID with full thickness skin graft Hayder Clarke MD [address] [address] Phone: tel: fax: LUCINA [facility] [address] [place] [phone] Phone: tel: Referral ID Status Reason Start Date Expiration Date Visits Re quested Visits Authorized [id number] 1 2 Encounter Details Date Type Department Care Team (Late st Contact Info) Description 02/28/2025 2:54 PM EDT Anesthesia Event LUCINA [facility] [address] [place] [phone] Shena Doty MD [address] [place] [address] Anesthesia Record Procedure Summary Procedure [...] place to sleep or slept in a snf (including now)? No 12/24/2023 PHQ-9 Answer Date [...] [facility] or living in a snf (including now)? No 12/16/2024 Safety and Environment [...] portions of the procedure(s) and immediately available [facility] services the entire duration. See resident note [...] History: Diagnosis Date Atherosclerotic heart disease of [place] coronary artery without angina pectoris B12 deficiency [...] 5 days prior to surgery. Dr. Thomas [facility] Card note 06/08/24 EKG sinus rhythm Nonspecific [...] note: MRA of the head performed at [facility] August 29 shows right M1 MCA focal [...] takes it - okay to hold by machine baster 5 days prior. Endocrine/Metabolic: Does not have [...] RequestsPatient: Sigifredo Ortega Procedure Information Date/Time: 02/28/25 4616 Procedures: REPAIR, ECTROPION, EYELID (Left) - [id number] 35 min with full thickness skin graft [...] Plan ASA 3 Plan was reviewed with: TELEVISION PRODUCTION CLERK Anesthesia technique(s) discussed with the patient/family: general Anesthesia plan agreed upon was: general Anesthetic plan and risks discussed with patient. Additional Equipment Requests documented in this encounter Plan of Treatment Not on file documented as of this encounter Procedures Procedure Name Priority Date/Time Associated Diagnosis Comments PB ANESTHESIA PLACEHOLDER Routine 02/28/2025 3:02 PM EDT AK AN ELECTIVE ENDOTRACHEAL AIRWAY Routine 02/28/2025 3:02 PM EDT documented in this encounter Results * AK AN ELECTIVE ENDOTRACHEAL AIRWAY, PB ANESTHESIA PLACEHOLDER [...] documented as of this encounter Care Teams Single Spindle Screw Machine Operator Relationship Specialty Start Date End Date Maryanne Wong MD [address] [phone] PCP - General Family Medicine 08/12/23 documented as of this encounter
--- OUTSIDE RECORDS SUMMARY | 2025-03-08 16:00 | XMS_ITS | Encounter Summary ---
Author Organization Healthcare Address [address] [place] [address] Care Team Providers Care Software Implementation Specialist Name Role Phone Maryanne Wong MD Primary Care Provider [phone] Reason for Visit * Reason Comments Post-op Encounter Details Date Type Department Care Team (Late st Contact Info) Description 03/08/2025 4:00 PM EDT Office Visit 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 No 12/24/2023 PHQ-9 Answer Date [...] any time in the past 12 m [facility], were you homeless or living in a care home (including now)? No 12/16/2024 Safety and Environment [...] on file documented as of this encounter Miscellaneous Notes * Progress Notes - Hayder Clarke MD - 03/08/2025 4:00 PM EDT Subjective Patient ID: Sigifredo Ortega is a 84 y.o. male. Chief Complaint Post-op HPI 84 year old male patient is in clinic for 1 week PO exam. 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 Patient states that his right eye (OD) has been burning and experiencing severe pain today. Last edited by Batsheva Sanchez on 03/08/2025 3:32 PM. Current Outpatient Medications (Ophthalmic Drugs) Medication Sig erythromycin (Romycin) 5 MG/GM ophthalmic ointment Apply 1 Application to both eyes nightly. tobramycin-dexamethasone (TobraDex) ophthalmic ointment Apply 0.5 inches to both eyes 3 (three) times a day. No current facility-administered medications for this visit. (Ophthalmic Drugs) Current Outpatient Medications (Other) Medication Sig Accu-Chek Softclix Lancets lancets aspirin 81 MG EC tablet Take 1 tablet (81 mg) by mouth 1 (one) time each day. (Patient not taking: Reported on 02/23/2025) atorvastatin (Lipitor) 40 MG tablet Take 1 tablet by mouth daily. BD Insulin Syringe U/F 31G X 02/11 1 ML misc betamethasone dipropionate 0.05 % EX cream (Patient not taking: Reported on 02/23/2025) Blood Glucose Monitoring Suppl (Accu-Chek Guide Ak) w/Device kit in the morning and at noon and in the evening. for testing. Calcium Carbonate-Vitamin D (calcium-vitamin D) 500-200 MG-UNIT tablet Take 1 tablet by mouth daily. clobetasol (Temovate) 0.05 % ointment (Patient not taking: Reported on 02/23/2025) colchicine 0.6 MG tablet Take 1 tablet (0.6 mg) by mouth in the morning. (Patient not taking: Reported on 02/23/2025) Fluocinolone Acetonide Scalp 0.01 % oil Apply 1 Application topically 2 (two) times a day. fluticasone (Flonase) 50 MCG/ACT nasal spray (Patient not taking: Reported on 02/23/2025) glucose blood (Accu-Chek Guide) test strip hydroxychloroquine (Plaquenil) 200 MG tablet Take 1 tablet by mouth daily. insulin aspart (NovoLOG FLEXPEN) 100 UNIT/ML injection Pt takes 8units in am, 9units at lunch, 9units with dinner. insulin glargine (Lantus) 100 UNIT/ML injection 45 Units nightly. insulin pen needle (B-D ULTRAFINE III SHORT PEN) 31G X 8 mm misc 1 each in the morning and 1 each at noon and 1 each in the evening. lisinopril 30 MG tablet Take 1 tablet by mouth daily. metoprolol tartrate (Lopressor) 25 MG tablet Take by mouth 2 times a day. predniSONE (Deltasone) 5 MG tablet Take 1 tablet by mouth daily. No current facility-administered medications for this visit. 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 Left lower eyelid cicatricial ectropion repair. 2. Left lower eyelid full-thickness skin graft 3.5 cm x 1.5 cm 3. Left Jimenez suture placement. 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- Primary 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
--- OUTSIDE RECORDS SUMMARY | 2025-03-28 14:40 | XMS_ITS | Encounter Summary ---
Author Organization Healthcare Address [address] [id number] Care Team Providers Care Retort Firer Name Role Phone Maryanne Wong MD Primary Care Provider [phone] Reason for Visit * Reason Comments bump Pt has spots/ bumps on hand and arm, no pain or itching, has been there for about a month Encounter Details Date Type Department Care Team (Late st Contact Info) Description 03/28/2025 2:40 PM EDT Office Visit [facility] [address] [place] [address] Mini Short, RIDING INSTRUCTOR [address] [place] [address] Changing skin lesion (Primary Dx) Social History Tobacco Use Types Packs/Day Years [...] place to sleep or slept in a chcf (including now)? No 12/24/2023 PHQ-9 Answer Date [...] any time in the past 12 m [facility], were you homeless or living in a chcf (including now)? No 12/16/2024 Safety and Environment [...] Sign Reading Time Taken Comments Blood Pressure 118/68 03/28/2025 2:35 PM EDT Pulse 86 03/28/2025 2:35 PM EDT Temperature 37 C (98.6 F) 03/28/2025 2:35 PM EDT Respiratory Rate 18 03/28/2025 2:35 PM EDT Oxygen Saturation 97% 03/28/2025 2:35 PM EDT Inhaled Oxygen Concentration - - Weight 89 kg (196 lb 3.4 oz) 03/28/2025 2:35 PM EDT Height 177.8 cm (5' 10 ) 03/28/2025 2:35 PM EDT Body Mass Index 28.15 03/28/2025 2:35 PM EDT documented in this encounter Functional Status * Calculated C-SSRS Risk Score (Lifetime/Recent) Answer Date of Assessment Author No Risk Indicated 03/28/2025 2:39 PM EDT Maria Del Rosario Mckinney * Question Answer Date of Assessment Author 1. Wish to be (Past 1 Month) No 025 2:39 PM EDT Maria Del Rosario Franklin 2. Non-Specific Active Suici stephanie Thoughts (Past 1 Month) No 03/28/2025 2:39 PM EDT Catherine Franklin 6. Suicidal Behavior (Lifetime) No 2:39 PM EDT Maria Del Rosario Franklin documented as of this encounter Miscellaneous Notes * Progress Notes - Mini Short APRN - 03/28/2025 2:40 PM EDTAssociated Order(s): Lesion biopsy Post-Procedure Diagnose(s): Changing skin lesion Patient ID: Sigifredo Ortega is a 84 y.o. male. Encounter Diagnosis Name Primary? Changing skin lesion Yes Lesion biopsy Performed by: Mini Short APRN Authorized by: Mini Short APRN Procedure Details - Skin Biopsy: Body area: upper extremity Upper extremity location: L wrist Malignancy: malignant lesion Destruction method: shave biopsy Comments: Informed consent: Discussed the risks (permanent scarring, light or dark discoloration, infection, pain, bleeding, bruising, redness, blister formation, and recurrence of the lesion) and the benefitsof the procedure, as well as the alternatives. Informed consent was obtained. Anesthesia: lidocaine 1% with epi The area was prepared and draped in a standard fashion. The skin was then stretched perpendicular to the skin tension lines and the lesion removed using a shave blade. Antibiotic ointment and a sterile dressing applied. The specimen was sent for pathologic examination. The patient tolerated the procedure well. The patient was instructed on post-op care. Coban applied for mild pressure Subjective Patient ID: Sigifredo Ortega is a 84 y.o. male. Chief Complaint Patient presents with bump Pt has spots/ bumps on hand and arm, no pain or itching, has been there for about a month Here with concern over bumps on arms that will not go away. Has plenty of rough lesions on his forearms. 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 Is frustrated with the fact that he keeps getting more. 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 Nazario concerned with a large raised one that is hard like a nodule. Denies bleeding from it. Would like it removed. The following portions of the chart were reviewed this encounter and updated as appropriate: Tobacco Allergies Meds Problems Med Hx Surg Hx Fam Hx Current Medications[1] Objective Blood pressure 118/68, pulse 86, temperature 37 ??C (98.6 ??F), temperature source Oral, resp. rate18, height 1.778 m (5' 10 ), weight 89 kg (196 lb 3.4 oz), SpO2 97%. Body mass index is 28.15 kg/m??. Physical Exam Vitals reviewed. Constitutional: Appearance: Normal appearance. Cardiovascular: Rate and Rhythm: Normal rate. Pulmonary: Effort: Pulmonary effort is normal. Skin: Findings: Lesion and rash present. Rash is crusting and nodular. Comments: He has numerous and many Aks on forearms, raised rough crusty lesions There is a particularly large pink pearly nodule on left wrist that is a bit crusty. Neurological: Mental Status: He is alert and oriented to person, place, and time. Psychiatric: Mood and Affect: Mood normal. Behavior: Behavior normal. Thought Content: Thought content normal. Judgment: Judgment normal. Assessment/Plan Diagnoses and all orders for this visit: Changing skin lesion - Surgical Pathology Exam; Future Other orders - Lesion biopsy Care instructions given Note to patient: The Century Cures Act makes medical notes like these available to patients inthe interest of transparency. However, be advised this is a medical document. It is intended as peer to peer communication. It is written in medical language and may contain abbreviations or verbiagethat are unfamiliar. It may appear blunt or direct. Medical documents are intended to carry relevant information, facts as evident, and the clinical opinion of the practitioner. [1] Current Outpatient Medications: Accu-Chek Softclix Lancets lancets, , Disp: , Rfl: atorvastatin (Lipitor) 40 MG tablet, Take 1 tablet by mouth daily., Disp: , Rfl: BD Insulin Syringe U/F 31G X 5/16 1 ML misc, , Disp: , Rfl: Blood Glucose Monitoring Suppl (Accu-Chek Guide Me) w/Device kit, in the morning and at noon and inthe evening. for testing., Disp: , Rfl: Calcium Carbonate-Vitamin D (calcium-vitamin D) 500-200 MG-UNIT tablet, Take 1 tablet by mouth daily., Disp: , Rfl: erythromycin (Romycin) 5 MG/GM ophthalmic ointment, Apply 1 Application to both eyes nightly., Disp: , Rfl: Fluocinolone Acetonide Scalp 0.01 % oil, Apply 1 Application topically 2 (two) times a day., Disp: 118.28 mL, Rfl: 1 glucose blood (Accu-Chek Guide) test strip, , Disp: , Rfl: hydroxychloroquine (Plaquenil) 200 MG tablet, Take 1 tablet by mouth daily., Disp: , Rfl: insulin aspart (NovoLOG FLEXPEN) 100 UNIT/ML injection, Pt takes 8units in am, 9units at lunch, 9units with dinner., Disp: , Rfl: insulin glargine (Lantus) 100 UNIT/ML injection, 45 Units nightly., Disp: , Rfl: insulin pen needle (B-D ULTRAFINE III SHORT PEN) 31G X 8 mm misc, 1 each in the morning and 1 each at noon and 1 each in the evening., Disp: , Rfl: lisinopril 30 MG tablet, Take 1 tablet by mouth daily., Disp: , Rfl: metoprolol tartrate (Lopressor) 25 MG tablet, Take by mouth 2 times a day., Disp: , Rfl: predniSONE (Deltasone) 5 MG tablet, Take 1 tablet by mouth daily., Disp: , Rfl: tobramycin-dexamethasone (TobraDex) ophthalmic ointment, Apply 0.5 inches to both eyes 3 (three) times a day., Disp: 3.5 g, Rfl: 0 documented in this encounter Plan of Treatment Not on file documented as of this encounter Procedures Procedure Name Priority Date/Time Associated Diagnosis Comments SURGICAL PATHOLOGY EXAM Routine 03/28/2025 3:26 PM EDT Changing skin lesion SKIN / NAIL BIOPSY Routine 03/28/2025 2: 40 PM EDT Changing skin lesion documented in this encounter Results * Surgical Pathology Exam (03/28/2025 3:26 PM EDT) Case Report Surgical Pathology Case: [id number] Authorizing Provider: Mini Short APRN Collected: 03/28/2025 1526 Ordering Location: [facility] & Received: 03/28/2025 [facility] Pathologist: Sigifredo Dejesus MD Specimen: Wrist, Left, Wrist, left 03/31/2025 11:38 AM EDT [facility] Final Diagnosis A. 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 03/31/2025 11:38 AM EDT [facility] at 1138 EDT Clinical Information raised pearly hard nodule that scabs and will not heal L98.9 - Changing skin lesion [ICD-10-CM] 03/31/2025 11:38 AM EDT [facility] Gross Description A. WRIST, LEFT Received in formalin labeled wrist, left is a pink-salas skin fragment measuring 1.5 x 1.2 x 0.6 cm. The skin surface is rounded, roughened, and crusted. Resection margin inked blue, serially sectioned, and entirely submitted in cassettes A1-A2 with ends submitted in cassette A1. Lisbeth Lopez Agata 03/31/2025 11:38 AM EDT [facility] Note: A resident was involved in the service. I attest I examined the relevant preparations for the specimens and confirmed the diagnosis or interpretation. 03/31/2025 11:38 AM EDT [facility] Tissue Structure of left wrist region / Unknown Non-blood Collection / Unknown 03/28/2025 3:26 PM EDT 03/28/2025 3:26 PM EDT Mini Short APRN LAB PATHOLOGY ORDERABLES Constanza stewart Result [facility] [address] [place] [address] * Lesion biopsy (03/28/2025 2:40 PM EDT) Narrative Mini Short APRN - 03/28/2025 2:40 PM EDT Mini Short APRN 03/28/2025 4:01 PM Lesion biopsy Performed by: Mini Short APRN Authorized by: Mini Short APRN Procedure Details - Skin Biopsy: Body area: upper extremity Upper extremity location: L wrist Malignancy: malignant lesion Destruction method: shave biopsy Comments: Informed consent: Discussed the risks (permanent scarring, light or dark discoloration, infection, pain, bleeding, bruising, redness, blister formation, and recurrence of the lesion) and the benefits of the procedure, as well as the alternatives. Informed consent was obtained. Anesthesia: lidocaine 1% with epi The area was prepared and draped in a standard fashion. The skin was then stretched perpendicular to the skin tension lines and the lesion removed using a shave blade. Antibiotic ointment and a sterile dressing applied. The specimen was sent for pathologic examination. The patient tolerated the procedure well. The patient was instructed on post-op care. Coban applied for mild pressure us Mini Smart Deja RIDING INSTRUCTOR DERM PROCEDURE ORDERABLES Fin al Result documented in this encounter Visit Diagnoses Diagnosis Changing skin lesion- Primary Unspecified disorder of skin and subcutaneous tissue documented in this encounter Additional Health Concerns Assessment Noted Time PHQ-9 Depression Total Score: 0 12/07/19 25 3:39 PM EDT A fall risk assessment has been complete d for the patient 03/28/2025 2:39 PM EDT A Body Mass Index follow-up plan has been documented for the patient 03/28/2025 4:01 PM EDT documented as of this encounter Care Teams Retort Firer Relationship Specialty Start Date End Date Maryanne Wong MD [address] [place] [phone] PCP - General Family Medicine 08/12/23 documented as of this encounter
--- OUTSIDE RECORDS SUMMARY | 2025-04-05 09:15 | XMS_ITS | Encounter Summary ---
Author Organization Healthcare Address [address] 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 male. Chief Complaint Post-op HPI Post-op Post-Op Follow-Up 1 month. Comments The 85 y/o male presents for a 1 month follow up status post (s/p) left lower lid (LLL) FTSG and cicatricial ectropion repair. Pt is happy with surgery. No eye pain or swelling. Last edited by Lois Nicole MD on 2025 9:20 AM. Current Outpatient Medications (Ophthalmic Drugs) Medication Sig erythromycin (Romycin) 5 MG/GM ophthalmic ointment Apply 1 Application to both eyes nightly. tobramycin-dexamethasone (TobraDex) ophthalmic ointment Apply 0.5 inches to both eyes 3 (three) times a day. No current facility-administered medications for this visit. (Ophthalmic Drugs) Current Outpatient Medications (Other) Medication Sig Accu-Chek Softclix Lancets lancets atorvastatin (Lipitor) 40 MG tablet Take 1 tablet by mouth daily. BD Insulin Syringe U/F 31G X 02/11 1 ML [facility] Blood Glucose Monitoring Suppl (Accu-Chek Guide Ma) w/Device kit in the morning and at noon and in the evening. for testing. Calcium Carbonate-Vitamin D (calcium-vitamin D) 500-200 MG-UNIT tablet Take 1 tablet by mouth daily. Fluocinolone Acetonide Scalp 0.01 % oil Apply 1 Application topically 2 (two) times a day. glucose blood (Accu-Chek Guide) test strip hydroxychloroquine [...] (Other) Objective Base Eye Exam Visual Acuity (Snellen - Linear) Right Left Dist sc 20/30 -2 20/50 -2 Near sc J5 OU Pupils Pupils Right PERRL Left PERRL Extraocular Movement Right Left Full Full Neuro/Psych Oriented x3: Yes Mood/Affect: Normal Slit Lamp and Fundus Exam External Exam Right Left External Right postauricular wounds healing well, no signs of infection Slit Lamp Exam Right Left Lids/Lashes Right lower eyelid (RLL) cicatricial ectropion FTSG in situ, no signs of infection, wounds healing well, lower lid (LL) in good position Assessment/Plan Assessment & Plan 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 Left lower eyelid cicatricial ectropion repair. 2. Left lower eyelid full-thickness skin graft 3.5 cm x 1.5 cm 3. Left Jimenez suture placement. Healing well No signs of infection or dehiscence Lower lid (LL) in good position Follow up with general eye doctor as needed / scheduled Return to oculoplastics PRN Pt will make / call for appmt in near future to review right lower eyelid (RLL) cicatricial ectropion evaluation Instructed pt to call if any issues Tobacco Use: Medium Risk (2025) Patient History Smoking Tobacco Use: Former Smokeless Tobacco Use: Never Passive Exposure: Past The patient has been counseled on tobacco cessation: Not Applicable Cosigned by Hayder Clarke MD at 2025 9:31 AM EDT Associated attestation - Hayder Clarke MD - 2025 9:31 AM EDT I saw and evaluated the patient with the resident/fellow. I discussed the case with the resident/fellow and agree with the findings and plan as documented. 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
--- OUTSIDE RECORDS SUMMARY | 2025-04-13 14:48 | XMS_ITS | Encounter Summary ---
Author Organization Healthcare Address [address] [place] [address] Care Team Providers Care Diesel Truck Crane Operator Name Role Phone Maryanne Wong MD Primary Care Provider [phone] Reason for Referral * Consultation (Routine) - Authorized Specialty Diagnoses / Procedures Referred By Shayy santos Referred To Contact General, Endocrine & Minimally Invasive Surgery Diagnoses Squamous cell carcinoma of left wrist Mini Short APRN [address] [place] [address] Phone: tel: fax: Referral ID Status Reason Start Date Expiration Date Visits Requested Visits Authorized [id number] Authorized Specialty Services Required 03/31/2025 09/30/2026 1 1 Encounter Details Date Type Department Care Team (Late st Contact Info) Description 03/31/2025 Orders Only [facility] [address] [place] [address] Mini Short APRN [address] [place] [address] Squamous cell carcinoma of left wrist (Primary Dx) Social History Tobacco Use Types [...] place to sleep or slept in a long-term (including now)? No 12/24/2023 PHQ-9 Answer Date [...] any time in the past 12 m [facility], were you homeless or living in a long-term (including now)? No 12/16/2024 Safety and Environment [...] Recorded In the past 12 months has e electric, gas, oil, or water company threatened to shut off services in your home? No 12/16/2024 PHQ-2A Answer Date Recorded Patient Health Questionnaire-2 Score 0 08/28/2023 Sex and Gender Information Value Date Recorded Sex Assigned at Not on file Legal Sex Male 6:27 PM EDT Gender Identity Not on file Sexual Orientation Not on file documented as of this encounter Plan of Treatment Scheduled Referrals Name Type Priority Associated Diagnoses Order Schedule Ambulatory referral to General Surgery Outpatient Referral Routine Squamous cell carcinoma of left wrist 1 Occurrences starting 03/31/2025 until 10/02/2026 documented as of this encounter Visit Diagnoses Diagnosis Squamous cell carcinoma of left wrist- Primary documented in this encounter Additional Health Concerns Assessment Noted Time PHQ-9 Depression Total Score: 0 12/07/19 25 3:39 PM EDT A fall risk assessment has been complete d for the patient 03/28/2025 2:39 PM EDT A Body Mass Index follow-up plan has been documented for the patient 03/28/2025 4:01 PM EDT documented as of this encounter Care Teams Diesel Truck Crane Operator Relationship Specialty Start Date End Date Maryanne Wong MD [address] [place] [phone] PCP - General Family Medicine 08/12/23 documented as of this encounter
--- OUTSIDE RECORDS SUMMARY | 2025-04-13 14:48 | XMS_ITS | Encounter Summary ---
Author Organization Healthcare Address [address] [id number] Care Team Providers Care Residential Green Building Designer Name Role Phone Maryanne Wong MD Primary Care Provider [phone] Reason for Visit * Reason Comments Med Refill Encounter Details Date Type Department Care Team (Late st Contact Info) Description 10/06/2023 Refill [facility] [address] [place] [address] Maryanne Wong MD [address] [place] [address] Vasculitis (CMS/HCC) Social History Tobacco Use Types Packs/Day Years Used Date Smoking Tobacco: Former Cigarettes 0.5 20 1 960 - 1980 Passive Smoke Exposure: Past Smokeless Tobacco: Never Alcohol Use Standard Drinks/Week Comments No 0 (1 standard drink = 0.6 oz pure alcohol) Alcoholic Drinks/day: Never Drank Alcohol PHQ-2 Answer Date Recorded Patient Health Questionnaire-2 Score 0 08/28/2023 PHQ-2A Answer Date Recorded Patient Health Questionnaire-2 Score 0 08/28/2023 Sex and Gender Information Value Date Recorded Sex Assigned at Not on file Legal Sex Male 6:27 PM EDT Gender Identity Not on file Sexual Orientation Not on file documented as of this encounter Miscellaneous Notes * Telephone Encounter - Kourtney Gregory - 10/06/2023 9:30 AM EST Patient advised he has an appointment on 10/07/2022, can talk to PCP regarding refill of prednisone. * Telephone Encounter - Kacei Pittman - 10/06/2023 9:25 AM EST Not able to leave a vm documented in this encounter Plan of Treatment Not on file documented as of this encounter Visit Diagnoses Diagnosis Vasculitis (CMS/HCC) Unspecified arteritis documented in this encounter Additional Health Concerns Infection Onset Date Last Indicated Resolved Time COVID-19 Rule-Out 12/06/2024 12/06/2024 12/06/2024 4:53 PM EDT Influenza 12/06/2024 12/06/2024 12/16/2024 10:2 9 AM EDT Assessment Noted Time A fall risk assessment has been complete d for the patient 08/28/2023 2:24 PM EST A Body Mass Index follow-up plan has been documented for the patient 08/28/2023 3:40 PM EST documented as of this encounter Care Teams Residential Green Building Designer Relationship Specialty Start Date End Date Maryanne Wong MD [address] [place] [address] PCP - General Family Medicine 08/12/23 documented as of this encounter
--- OUTSIDE RECORDS SUMMARY | 2025-04-13 14:48 | XMS_ITS | Encounter Summary ---
Author Organization Healthcare Address [address] [id number] Care Team Providers Care Wrapper Layer And Examiner Soft Work Name Role Phone Maryanne Wong MD Primary Care Provider [phone] Reason for Visit * Reason Onset Date Comments HCN - Patient Message 03/29/2025 Encounter Details Date Type Department Care Team (Late st Contact Info) Description 03/29/2025 Telephone [facility] [address] [place] [address] Maryanne Wong MD [address] [place] [address] HCN - Patient Message Social History Tobacco Use Types Packs/Day Years [...] any time in the past 12 m [facility], were you homeless or living in [...] the past 12 months has th e [employer], [employer], oil, or water [employer] threatened to shut off services in your home? No 12/16/2024 PHQ-2A Answer Date Recorded Patient Health Questionnaire-2 Score 0 08/28/2023 Sex and Gender Information Value Date Recorded Sex Assigned at Not on file Legal Sex Male 6:27 PM EDT Gender Identity Not on file Sexual Orientation Not on file documented as of this encounter Miscellaneous Notes * Telephone Encounter - Maria Del Rosario Franklin - 03/29/2025 4:05 PM EDT Pt called and informed * Telephone Encounter - Nikole Swenson - 03/29/2025 12:23 PM EDT Clinical Concern/Question Reason for Call: p's calling had a skin biopsy done yesterday; pt's asking to speak with nurse to verify if he can take off his bandage this afternoon . Please advise Thanks Best contact number: [phone] (home) Optimal time of day to reach caller: ANYTIME Additional comments/information from caller: None Note: Please do not reply to this message. Follow-up communication and further actions as a result of this message need to be communicated with the patient directly, if the patient is not active onMyChart. If the patient is active on MyChart, they will receive notification of the communication/outcome via [employer]. documented in this encounter Plan of Treatment Not on file documented as of this encounter Visit Diagnoses Not on filedocumented in this encounter Additional Health Concerns Assessment Noted Time PHQ-9 Depression Total Score: 0 12/07/19 25 3:39 PM EDT A fall risk assessment has been complete d for the patient 03/28/2025 2:39 PM EDT A Body Mass Index follow-up plan has been documented for the patient 03/28/2025 4:01 PM EDT documented as of this encounter Care Teams Wrapper Layer And Examiner Soft Work Relationship Specialty Start Date End Date Maryanne Wong MD [facility] [place] [address] PCP - General Family Medicine 08/12/23 documented as of this encounter
--- OUTSIDE RECORDS SUMMARY | 2025-04-13 14:48 | XMS_ITS | Encounter Summary ---
Author Organization Healthcare Address [address] [place] [address] Care Team Providers Care First Breaker Feeder Name Role Phone Maryanne Wong MD Primary Care Provider [phone] Encounter Details Date Type Department Care Team (Latest Contact Info) Description 02/28/2025 Travel Social History Tobacco Use Types Packs/Day Years [...] place to sleep or slept in a jail (including now)? No 12/24/2023 PHQ-9 Answer Date [...] any time in the past 12 m [facility], were you homeless or living in a jail (including now)? No 12/16/2024 Safety and Environment [...] Vásquez RN documented as of this encounter Plan of Treatment Not on [...] documented as of this encounter Care Teams First Breaker Feeder Relationship Specialty Start Date End Date Maryanne Wong MD [address] [place] [address] PCP - General Family Medicine 08/12/23 documented as of this encounter
--- OUTSIDE RECORDS SUMMARY | 2025-04-13 14:48 | XMS_ITS | Encounter Summary ---
Author Organization Healthcare Address [address] [id number] Care Team Providers Care Admissions Manager Rn Name Role Phone Gladis Gallagher MD Primary Care Provider [phone] Maryanne Wong MD Primary Care Provider [phone] Encounter Details Date Type Department Care Team (Late st Contact Info) Description 06/06/2023 Outside Procedure External Location [address] [place] [address] Provider, [facility] Social History Tobacco Use Types Packs/Day Years Used Date Smoking Tobacco: Former Cigarettes 0.5 20 1 960 - 1980 Passive Smoke Exposure: Past Smokeless Tobacco: Never Alcohol Use Standard Drinks/Week Comments No 0 (1 standard drink = 0.6 oz pure alcohol) Alcoholic Drinks/day: Never Drank Alcohol PHQ-2 Answer Date Recorded Patient Health Questionnaire-2 Score 0 03/12/2023 Sex and Gender Information Value Date Recorded Sex Assigned at Not on file Legal Sex Male 6:27 PM EDT Gender Identity Not on file Sexual Orientation Not on file documented as of this encounter Plan of Treatment Not on file documented as of this encounter Procedures Procedure Name Priority Date/Time Associated Diagnosis Comments XR CHEST 1 VIEW 06/06/2023 8:10 PM EDT documented in this encounter Results * XR Chest 1 View (06/06/2023 8:10 PM EDT) Anatomical Region Laterality Modality Chest Digital Radiogra phy 06/06/2023 8:10 PM EDT Narrative 06/07/2023 1:04 PM EDT [address] [address] Name: SIGIFREDO ORTEGA Exam Date: 06/06/2023 : 1940 Age 83 Gender: M Physician: DEBBIE REED Facility: [facility] Facility HSV: Outpatient Exam: CHEST PORTABLE PORTABLE CHEST HISTORY: Covid positive, cough COMPARISON: None The heart is normal in size. Patient is status post median sternotomy. The mediastinum is unremarkable. The lungs are clear. There is no pneumothorax. There is no acute osseous abnormality. IMPRESSION: No acute cardiopulmonary process. Dictated By: JAVI BURROWS Transcribed By: JAVI BURROWS Transcribed On: 06/07/2023 12:52 PM Electronically signed by: JAVI BURROWS 06/07/2023 Thank you for referring SIGIFREDO ORTEGA to [facility]. Legally authenticated by STORMY CALDWELL 2023-06-07 12:52:00 Procedure Note Provider, [facility] 06/07/2023 [place] [address] Name: SIGIFREDO ORTEGA Exam Date: 06/06/2023 : 1940 Age 83 Gender: M Physician: DEBBIE REED Facility: [facility] Facility HSV: Outpatient Exam: CHEST PORTABLE PORTABLE CHEST HISTORY: Covid positive, cough COMPARISON: None The heart is normal in size. Patient is status post median sternotomy.The mediastinum is unremarkable. The lungs are clear. There is nopneumothorax. There is no acute osseous abnormality. IMPRESSION: No acute cardiopulmonary process. Dictated By: JAVI BURROWS Transcribed By: JAVI BURROWS Transcribed On: 06/07/2023 12:52 PM Electronically signed by: JAVI BURROWS 06/07/2023 Thank you for referring SIGIFREDO ORTEGA to [facility]. Legally authenticated by STORMY CALDWELL 2023-06-07 12:52:00 [facility] Provider IMG XR PROCEDURES Fi nal Result documented in this encounter Visit Diagnoses Not on filedocumented in this encounter Additional Health Concerns Infection Onset Date Last Indicated Resolved Time COVID-19 Rule-Out 12/06/2024 12/06/2024 12/06/2024 4:53 PM EDT Influenza 12/06/2024 12/06/2024 12/16/2024 10:2 9 AM EDT Assessment Noted Time A fall risk assessment has been complete d for the patient 03/12/2023 10:38 AM EDT A Body Mass Index follow-up plan has been documented for the patient 03/14/2023 3:01 PM EDT documented as of this encounter Care Teams Admissions Manager Rn Relationship Specialty Start Date End Date Gladis Gallagher MD [address] [place] [address] PCP - General 02/09/21 08/11/23 Maryanne Wong MD [address] [place] [address] PCP - General Family Medicine 08/12/23 documented as of this encounter
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
--- OUTSIDE RECORDS SUMMARY | 2025-04-13 14:48 | XMS_ITS | Encounter Summary ---
Author Organization Healthcare Address [address] [id number] Care Team Providers Care Station Jailer Name Role Phone Maryanne Wong MD Primary Care Provider [phone] Encounter Details Date Type Department Care Team (Late st Contact Info) Description 09/04/2023 Outside Procedure External Location [address] [place] [address] Provider, Gregorio [place] Social History Tobacco Use Types Packs/Day Years [...] Name Priority Date/Time Associated Diagnosis Comments MR LUMBAR SPINE WO IV CONTRAST 09/04/2023 10:10 AM EST documented in this encounter Results * MR Lumbar Spine wo IV Contrast (09/04/2023 10:10 AM EST) Anatomical Region Laterality Modality L-spine Magnetic Resonan ce 09/04/2023 10:1 0 AM EST Narrative 09/08/2023 11:40 AM EST [address] [address] Name: SIGIFREDO ORTEGA Exam Date: 09/04/2023 : 1940 Age 83 Gender: M Physician: ABIODUN THOMAS Facility: [facility] Facility HSV: Outpatient Exam: MRI LUMBAR SPINE W/O FINAL REPORT CLINICAL HISTORY: Low back pain COMPARISON: 06/15/2019 FINDINGS: Multiplanar MR imaging of the lumbar spine was performed without contrast. On the sagittal T2-weighted images, there is abnormal decreased signal throughout the lumbar discs. There is abnormal indentation of the superior endplate of L3 vertebra with 20% loss of height. There is a linear fracture at the superior endplate of L3. Endplate reactive signal changes are noted at L3-4 and L4-5. The vertebral alignment is normal. L1-2: There is no significant canal stenosis or neural foraminal narrowing. L2-3: Posterolateral disc protrusion. Mild bilateral neural foraminal narrowing. L3-4: Moderate diffuse disc bulge. Posterior lateral disc protrusion. Moderate to high-grade right and mild left neural foraminal narrowing. L4-5: Moderate diffuse disc bulge. High-grade left and mild right neural foraminal narrowing. L5-S1: Moderate diffuse disc bulge. Moderate bilateral neural foraminal narrowing. IMPRESSION: Acute compression fracture superior portion of L3 vertebra with associated edema. High-grade neural foraminal narrowing on the left at L4-5 and on the right at L3-4, significantly worse compared to prior study. Reviewed, Interpreted and Dictated by Saira Pena MD Transcribed by Kourtney Sequeira Authenticated and EASTERN Dictated By: SAIRA PENA Transcribed By: Transcribed On: 09/08/2023 11:24 AM Electronically signed by: SAIRA PENA 09/08/2023 Thank you for referring SIGIFREDO ORTEGA to [facility]. Legally authenticated by SLIM Shepherd 2023-09-08 11:24:59 Procedure Note Provider, Generic [place] - 09/08/[address] [place] [address] Name: SIGIFREDO ORTEGA Exam Date: 09/04/2023 : 1940 Age 83 Gender: M Physician: ABIODUN THOMAS Facility: [facility] Facility HSV: Outpatient Exam: MRI LUMBAR SPINE W/O FINAL REPORT CLINICAL HISTORY: Low back pain COMPARISON: 06/15/2019 FINDINGS: Multiplanar MR imaging of the lumbar spine was performed without contrast. On the sagittal T2-weighted images, there is abnormal decreased signal throughout the lumbar discs. There is abnormal indentation of the superior endplate of L3 vertebra with 20% loss of height. There is a linear fracture at the superior endplate of L3. Endplate reactive signal changes are noted at L3-4 and L4-5. The vertebral alignment is normal. L1-2: There is no significant canal stenosis or neural foraminal narrowing. L2-3: Posterolateral disc protrusion. Mild bilateral neural foraminal narrowing. L3-4: Moderate diffuse disc bulge. Posterior lateral disc protrusion. Moderate to high-grade right and mild left neural foraminal narrowing. L4-5: Moderate diffuse disc bulge. High-grade left and mild right neural foraminal narrowing. L5-S1: Moderate diffuse disc bulge. Moderate bilateral neural foraminal narrowing. IMPRESSION: Acute compression fracture superior portion of L3 vertebra with associated edema. High-grade neural foraminal narrowing on the left at L4-5 and on the right at L3-4, significantly worse compared to prior study. Reviewed, Interpreted and Dictated by Saira Pena MD Transcribed by Kourtney Sequeira Authenticated and EASTERN Dictated By: SAIRA PENA Transcribed By: Transcribed On: 09/08/2023 11:24 AM Electronically signed by: SAIRA PENA 09/08/2023 Thank you for referring SIGIFREDO ORTEGA to [facility]. Legally authenticated by SLIM Shepherd 2023-09-08 11:24:59 Generic [place] Provider IMG MRI PROCEDURES F inal Result documented in this encounter Visit Diagnoses [...] documented as of this encounter Care Teams Station Jailer Relationship Specialty Start Date End Date Maryanne Wong MD [address] [place] [address] PCP - General Family Medicine 08/12/23 documented as of this encounter
--- OUTSIDE RECORDS SUMMARY | 2025-04-13 14:48 | XMS_ITS | Encounter Summary ---
Author Organization Healthcare Address [address] [place] [address] Care Team Providers Care Insulating Machine Operator Name Role Phone Maryanne Wong MD Primary Care Provider [phone] Encounter Details Date Type Department Care Team ([facility] st Contact Info) Description 09/04/2023 Orders Only External Location [address] [place] [address] Provider, External Social History Tobacco Use Types Packs/Day Years [...] Name Priority Date/Time Associated Diagnosis Comments MR OUTSIDE IMAGES 09/04/2023 10:25 AM EST documented in this encounter Results * MR transfer of outside films (09/04/2023 10:25 AM EST) Anatomical Region Laterality Modality Magnetic Resonan ce 09/04/2023 10:2 5 AM EST us External Provider IMG MRI PROCEDURES Final Resul t documented [...] documented as of this encounter Care Teams Insulating Machine Operator Relationship Specialty Start Date End Date Maryanne Wong MD [address] [place] [phone] PCP - General Family Medicine 08/12/23 documented as of this encounter
--- OUTSIDE RECORDS SUMMARY | 2025-04-13 14:48 | XMS_ITS | Encounter Summary ---
Author Organization [facility] Address [address] [place] [address] Care Team Providers Care Return To Vendor Name Role Phone Gladis Gallagher MD Primary Care Provider [phone] Maryanne Wong MD Primary Care Provider [phone] Encounter Details Date Type Department Care Team (Late st Contact Info) Description 02/04/2023 Outside Procedure External Location [address] [place] [address] Margarito Martell MD [address] [place] [address] Social History Tobacco Use Types Packs/Day Years Used Date Smoking Tobacco: Former Cigarettes 0.5 20 1 960 - 1980 Passive Smoke Exposure: Past Smokeless Tobacco: Never Alcohol Use Standard Drinks/Week Comments No 0 (1 standard drink = 0.6 oz pure alcohol) Alcoholic Drinks/day: Never Drank Alcohol PHQ-2 Answer Date Recorded Patient Health Questionnaire-2 Score 0 08/05/2022 Sex and Gender Information Value Date Recorded Sex Assigned at Not on file Legal Sex Male 6:27 PM EDT Gender Identity Not on file Sexual Orientation Not on file documented as of this encounter Plan of Treatment Not on file documented as of this encounter Procedures Procedure Name Priority Date/Time Associated Diagnosis Comments ECHO, ADULT TRANSTHORACIC COMPLETE W/ COLOR AND DOPPLER 02/04/2023 12:38 PM EDT documented in this encounter Results * Echo, Adult Transthoracic Complete w/ Color and Doppler (02/04/2023 12:38 PM EDT) Anatomical Region Laterality Modality Ultrasound 02/04/2023 12:3 8 PM EDT Narrative 02/06/2023 10:00 AM EDT [address] [place] [address] Name: SIGIFREDO ORTEGA Exam Date: 02/04/2023 : 1940 Age 82 Gender: M Physician: MARGARITO MARTELL Facility: [facility] Facility HSV: Outpatient Exam: ECHO W SPEC COLOR FLOW Reason for Study: coronary artery disease SUMMARY Normal LV size with normal function. The ejection fraction is 60-65%. Normal diastolic function. INTERPRETATION DETAIL Fair quality study. Left ventricle: The left ventricle is normal in size with normal systolic function. The ejection fraction is 60-65%. There is top normal LV wall thickness. The left ventricular wall motion is normal. Mitral filling indicates Normal diastolic function. Left atrium: The left atrium is normal. LA volume: 40.8mL, LA volume index: 19.2mL/mA . Right ventricle: The right ventricle is normal in size with normal function. Right atrium: The right atrium is normal. Mitral valve: There is mild mitral annular calcification. There is no mitral stenosis. Aortic valve: The aortic valve is normal and trileaflet. There is no aortic stenosis. AV peak bwsbygra=548jc/sec. There is no aortic regurgitation. Tricuspid valve: The tricuspid valve is normal. There is no tricuspid regurgitation, so PA pressure cannot be estimated. Pulmonic valve: The pulmonic valve is normal. Pericardium: The pericardium is normal. Interatrial septum: The interatrial septum is normal. Aorta: The aortic root is normal. Aortic dimensions - Ao M-mode= 4.00cm, Ascending=2.80cm. Vena Cava: The inferior vena cava is normal. MEASUREMENTS Left Ventricle IVSd: 1.01cm (0.6-1.1cm) PWd: 1.02cm (0.6-1.1cm) Mass Samantha: 164g LVMI: 77g/mA (>50-95g/m) LVIDd: 4.63cm (3.7-5.6 cm) LVIDdI: 2.17cm/m2 LVIDs: 3.17cm (1.8-4.2 cm) LVIDsI: 1.49cm/m2 RWT: 0.44 ( E to A: 0.68 (0.6-2) E-e prime med: 14.00 E-e prime lat: 7.64 Decel: 180.00ms (168-232ms) PVmaxS D: 1.000 Right Ventricle Mid RV Nelli: 4.0cm (2.7-3.3cm) Max Valve Velocities AV peak elle: 119cm/sec LVOT: 111.00cm/sec [facility] Legally authenticated by JOVI Willard 2023-02-06 09:49:02 LA AP: 3.9cm LA vol: 40.8mL SHAAN: 19.2mL/mA (16-28ml/m2) Margarito Martell MD Dictated By: MARGARITO MARTELL Transcribed By: Transcribed On: 02/06/2023 9:49 AM Electronically signed by: MARGARITO MARTELL 02/06/2023 Thank you for referring SIGIFREDO ORTEGA to [facility]. Legally authenticated by JOVI Willard 2023-02-06 09:49:02 Procedure Note Provider, Generic [place] - 02/06/2023 [place] [address] Name: SIGIFREDO ORTEGA Exam Date: 02/04/2023 : 1940 Age 82 Gender: M Physician: MARGARITO MARTELL Facility: [facility] Facility HSV: Outpatient Exam: ECHO W SPEC COLOR FLOW Reason for Study: coronary artery disease SUMMARY Normal LV size with normal function. The ejection fraction is 60-65%. Normal diastolic function. INTERPRETATION DETAIL Fair quality study. Left ventricle: The left ventricle is normal in size with normal systolic function. The ejection fraction is 60-65%. There is top normal LV wall thickness. The left ventricular wall motion is normal. Mitral filling indicates Normal diastolic function. Left atrium: The left atrium is normal. LA volume: 40.8mL, LA volume index: 19.2mL/mA . Right ventricle: The right ventricle is normal in size with normal function. Right atrium: The right atrium is normal. Mitral valve: There is mild mitral annular calcification. There is no mitral stenosis. Aortic valve: The aortic valve is normal and trileaflet. There is no aortic stenosis. AV peak lwykvgrt=170fb/sec. There is no aortic regurgitation. Tricuspid valve: The tricuspid valve is normal. There is no tricuspid regurgitation, so PA pressure cannot be estimated. Pulmonic valve: The pulmonic valve is normal. Pericardium: The pericardium is normal. Interatrial septum: The interatrial septum is normal. Aorta: The aortic root is normal. Aortic dimensions - Ao M-mode= 4.00cm, Ascending=2.80cm. Vena Cava: The inferior vena cava is normal. MEASUREMENTS Left Ventricle IVSd: 1.01cm (0.6-1.1cm) PWd: 1.02cm (0.6-1.1cm) Mass Samantha: 164g LVMI: 77g/mA (>50-95g/m) LVIDd: 4.63cm (3.7-5.6 cm) LVIDdI: 2.17cm/m2 LVIDs: 3.17cm (1.8-4.2 cm) LVIDsI: 1.49cm/m2 RWT: 0.44 ( E to A: 0.68 (0.6-2) E-e prime med: 14.00 E-e prime lat: 7.64 Decel: 180.00ms (168-232ms) PVmaxS D: 1.000 Right Ventricle Mid RV Nelli: 4.0cm (2.7-3.3cm) Max Valve Velocities AV peak elle: 119cm/sec LVOT: 111.00cm/sec [facility] Legally authenticated by JOVI Willard 2023-02-06 09:49:02 LA AP: 3.9cm LA vol: 40.8mL SHAAN: 19.2mL/mA (16-28ml/m2) Margarito Martell MD Dictated By: MARGARITO MARTELL Transcribed By: Transcribed On: 02/06/2023 9:49 AM Electronically signed by: MARGARITO MARTELL 02/06/2023 Thank you for referring SIGIFREDO ORTEGA to [facility]. Legally authenticated by JOVI Willard 2023-02-06 09:49:02 us Margarito Martell MD CV ECHO PROCEDURES Final Resu lt documented in this encounter Visit Diagnoses Not on filedocumented in this encounter Additional Health Concerns Infection Onset Date Last Indicated Resolved Time COVID-19 Rule-Out 12/06/2024 12/06/2024 12/06/2024 4:53 PM EDT Influenza 12/06/2024 12/06/2024 12/16/2024 10:2 9 AM EDT Assessment Noted Time A fall risk assessment has been complete d for the patient 08/05/2022 10:44 AM EST documented as of this encounter Care Teams Return To Vendor Relationship Specialty Start Date End Date Gladis Gallagher MD [address] [place] [address] PCP - General 02/09/21 08/11/23 Maryanne Wong MD [address] [place] [address] PCP - General Family Medicine 08/12/23 documented as of this encounter
--- OUTSIDE RECORDS SUMMARY | 2025-04-13 14:48 | XMS_ITS | Encounter Summary ---
Author Organization Healthcare Address [address] [place] [address] Care Team Providers Care Drilling Plant Operator Name Role Phone Maryanne Wong MD Primary Care Provider Encounter Details Date Type Department Care Team (Late st Contact Info) Description 01/01/2024 Outside Procedure External Location [address] [place] [address] Provider, Gregorio Premium Social History Tobacco Use Types Packs/Day Years Used Date Smoking Tobacco: Former Cigarettes 0.5 20 1 960 - 1979 Passive Smoke Exposure: Past Smokeless Tobacco: Never Alcohol Use Standard Drinks/Week Comments No 0 (1 standard drink = 0.6 oz pure alcohol) Alcoholic Drinks/day: Never Drank Alcohol Humiliation, Afraid, Rape, and Kick questionnair e Answer Date Recorded Within the last year, have y ou been afraid of your partner or ex-partner? No 12/24/2023 Within the last year, have y ou been humiliated or emotionally abused in other ways by your partner or ex-partner? No Within the last year, have y ou been kicked, hit, slapped, or otherwise physically hurt by your partner or ex-partner? No 12/24/2023 Within the last year, have y ou been raped or forced to have any kind of sexual activity by your partner or ex-partner? No 12/24/2023 PHQ-2 Answer Date Recorded Patient Health Questionnaire-2 Score 0 12/24/2023 Hunger Vital Sign Answer Date Recorded Within the past 12 months, y ou worried that your food would run out before you got the money to buy more. Never true 12/24/19 24 Within the past 12 months, t he food you bought just didn't last and you didn't have money to get more. Never true 12/24/2023 PRAPARE - Transportation Answer Date Re corded In the past 12 months, has l ack of transportation kept you from medical appointments or from getting medications? No 11/28 In the past 12 months, has l ack of transportation kept you from meetings, work, or from getting things needed for daily living? No 12/24/2023 Housing Stability Vital Sign Answer Eliud e [...] place to sleep or slept in a half-way (including now)? No 12/24/2023 Utilities Answer Date Recorded In the past 12 months has th e electric, gas, oil, or water company threatened to shut off services in your home? No 12/24/2023 PHQ-2A Answer Date Recorded Patient Health Questionnaire-2 Score 0 08/28/2023 Sex and Gender Information Value Date Recorded Sex Assigned at Not on file Legal Sex Male 6:27 PM EDT Gender Identity Not on file Sexual Orientation Not on file documented as of this encounter Plan of Treatment Not on file documented as of this encounter Procedures Procedure Name Priority Date/Time Associated Diagnosis Comments CT HEAD WO IV CONTRAST 01/01/2024 10:55 AM EDT documented in this encounter Results * CT Head wo IV Contrast (01/01/2024 10:55 AM EDT) Anatomical Region Laterality Modality Head Computed Tomogra phy 01/01/2024 10:5 5 AM EDT Narrative 01/01/2024 11:55 [place] [address] Name: SIGIFREDO ORTEGA Exam Date: 01/01/2024 : 1940 Age 83 years Gender: M Physician: CHAPARRO AMES Facility: [facility] Facility HSV: Outpatient Exam: CT BRAIN W/O EXAMINATION: CT HEAD WITHOUT IV CONTRAST INDICATION: Dizziness, syncope. TECHNIQUE: Contiguous axial noncontrast CT images of the head. Coronal and sagittal reformatted images were generated and reviewed. COMPARISON: None FINDINGS: No evidence of acute hemorrhage. No evidence of brain parenchymal ischemia. No extra-axial collection. No mass effect, midline shift, or herniation. Periventricular and subcortical white matter hypodensities are nonspecific but favored to represent chronic microvascular ischemic changes in a patient of this age. Normal ventricular configuration. Basal cisterns are patent. Normal sized CSF spaces, accounting for age-related global cerebral volume loss. Visualized orbital structures are unremarkable. Visualized paranasal sinuses are clear No abnormality of the scalp soft tissues. No evidence of skull fracture. IMPRESSION: No acute intracranial abnormality. Dictated By: Emmanuel Aguayo Transcribed By: Emmanuel Roland Transcribed On: 01/01/2024 11:29 AM Electronically signed by: Emmanuel Aguayo 01/01/2024 Thank you for referring SIGIFREDO ORTEGA to [facility]. Legally authenticated by CINDY LADD 2024-01-01 11:29:18 Procedure Note Provider, [facility] - 01/01/[address] [address] Name: SIGIFREDO ORTEGA Exam Date: 01/01/2024 : 1940 Age 83 years Gender: M Physician: CHAPARRO AMES Facility: [facility] Facility HSV: Outpatient Exam: CT BRAIN W/O EXAMINATION: CT HEAD WITHOUT IV CONTRAST INDICATION: Dizziness, syncope. TECHNIQUE: Contiguous axial noncontrast CT images of the head. Coronaland sagittal reformatted images were generated and reviewed. COMPARISON: None FINDINGS: No evidence of acute hemorrhage. No evidence of brain parenchymalischemia. No extra-axial collection. No mass effect, midline shift, or herniation. Periventricular and subcortical white matter hypodensities are nonspecificbut favored to represent chronic microvascular ischemic changes in a patientof this age. Normal ventricular configuration. Basal cisterns are patent. Normal sizedCSF spaces, accounting for age-related global cerebral volume loss. Visualized orbital structures are unremarkable. Visualized paranasalsinuses are clear No abnormality of the scalp soft tissues. No evidence of skull fracture. IMPRESSION: No acute intracranial abnormality. Dictated By: Emmanuel Aguayo Transcribed By: Emmanuel Roland Transcribed On: 01/01/2024 11:29 AM Electronically signed by: Emmanuel Aguayo 01/01/2024 Thank you for referring SIGIFREDO ORTEGA to [facility]. Legally authenticated by CINDY LADD 2024-01-01 11:29:18 Generic Premium Provider IMG CT PROCEDURES Fi nal Result documented in this encounter Visit Diagnoses Not on filedocumented in this encounter Additional Health Concerns Infection Onset Date Last Indicated Resolved Time COVID-19 Rule-Out 12/06/2024 12/06/2024 12/06/2024 4:53 PM EDT Influenza 12/06/2024 12/06/2024 12/16/2024 10:2 9 AM EDT Assessment Noted Time A fall risk assessment has been complete d for the patient 12/24/2023 9:49 AM EDT A Body Mass Index follow-up plan has been documented for the patient 12/24/2023 10:58 AM EDT documented as of this encounter Care Teams Drilling Plant Operator Relationship Specialty Start Date End Date Maryanne Wong MD [address] [place] [phone] PCP - General Family Medicine 08/12/23 documented as of this encounter
--- OUTSIDE RECORDS SUMMARY | 2025-04-13 14:48 | XMS_ITS | Encounter Summary ---
Author Organization Healthcare Address [address] [place] [address] Care Team Providers Care Tool Maker Bench Name Role Phone Maryanne Wong MD Primary Care Provider Encounter Details Date Type Department Care Team ([facility] st Contact Info) Description 08/29/2023 Orders Only External Location [address] [place] [address] Provider, External Social History Tobacco Use Types [...] Date/Time Associated Diagnosis Comments MR OUTSIDE IMAGES 08/29/2023 11:09 AM EST documented in this encounter Results * MR transfer of outside films (08/29/2023 11:09 AM EST) Anatomical Region Laterality Modality Magnetic Resonan ce 08/29/2023 11:0 9 AM EST us External Provider IMG MRI [...] documented as of this encounter Care Teams Tool Maker Bench Relationship Specialty Start Date End Date Maryanne Wong MD [address] [place] [phone] PCP - General Family Medicine 08/12/23 documented as of this encounter
--- OUTSIDE RECORDS SUMMARY | 2025-04-13 14:48 | XMS_ITS | Encounter Summary ---
Author Organization Healthcare Address [address] [id number] Care Team Providers Care Director Clinical Operations Name Role Phone Maryanne Wong MD Primary Care Provider [phone] Encounter Details Date Type Department Care Team (Late st Contact Info) Description 03/31/2025 Results Follow-Up [facility] [address] [place] [address] Mini Short, ECHOCARDIOGRAPHY RADIOLOGY TECHNOLOGIST [address] [place] [address] Social History Tobacco Use Types [...] place to sleep or slept in a intermediate (including now)? No 12/24/2023 PHQ-9 Answer Date [...] were you homeless or living in a intermediate (including now)? No 12/16/2024 Safety and Environment [...] documented as of this encounter Care Teams Director Clinical Operations Relationship Specialty Start Date End Date Maryanne Wong MD [address] [place] [address] PCP - General Family Medicine 08/12/23 documented as of this encounter
--- OUTSIDE RECORDS SUMMARY | 2025-04-13 14:48 | XMS_ITS | Encounter Summary ---
Author Organization Healthcare Address [address] [place] [address] Care Team Providers Care Filter Tender Name Role Phone Maryanne Wong MD Primary Care Provider [phone] Encounter Details Date Type Department Care Team (Latest Contact Info) Description 03/28/2025 Travel Social History Tobacco Use Types Packs/Day [...] in a half-way (including now)? No 12/24/2023 PHQ-9 Answer Date [...] any time in the past 12 m [facility], were you homeless or living in a half-way (including now)? No 12/16/2024 Safety and Environment [...] Rosario Franklin documented as of this encounter Plan of [...] documented as of this encounter Care Teams Filter Tender Relationship Specialty Start Date End Date Maryanne Wong MD [address] [place] [address] PCP - General Family Medicine 08/12/23 documented as of this encounter
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
--- OUTSIDE RECORDS SUMMARY | 2025-04-13 14:48 | XMS_ITS | Encounter Summary ---
Author Organization Healthcare Address [address] [place] [address] Care Team Providers Care Global Marketing Specialist Name Role Phone Maryanne Wong MD Primary Care Provider [phone] Encounter Details Date Type Department Care Team (Late st Contact Info) Description 01/01/2024 Outside Procedure External Location [address] [place] [address] Provider, Gregorio Alden Social History Tobacco Use Types Packs/Day Years [...] place to sleep or slept in a retirement (including now)? No 12/24/2023 Utilities Answer Date [...] Associated Diagnosis Comments XR CHEST 1 VIEW 01/01/2024 9:50 AM EDT documented in this encounter Results * XR Chest 1 View (01/01/2024 9:50 AM EDT) Anatomical Region Laterality Modality Chest Digital Radiogra phy 01/01/2024 9:50 AM EDT Narrative 01/01/2024 10:29 [place] [address] Name: SIGIFREDO ORTEGA Exam Date: 01/01/2024 : 1940 Age 83 years Gender: M Physician: CHAPARRO AMES Facility: [facility] Facility HSV: Outpatient Exam: CHEST PORTABLE CHEST, 1 view HISTORY: Chest pain COMPARISON: None. FINDINGS: The lungs are clear. There is no evidence of effusion or other pleural disease. The mediastinum has a normal appearance. The cardiac silhouette is unremarkable. Prior median sternotomy. IMPRESSION: No acute cardiopulmonary process Dictated By: Emmanuel Aguayo Transcribed By: Emmanuel Roland Transcribed On: 01/01/2024 10:05 AM Electronically signed by: Emmanuel Aguayo 01/01/2024 Thank you for referring SIGIFREDO ORTEGA to [facility]. Legally authenticated by CINDY LADD 2024-01-01 10:05:21 Procedure Note [facility]2024 [place] [address] Name: SIGIFREDO ORTEGA Exam Date: 01/01/2024 : 1940 Age 83 years Gender: M Physician: CHAPARRO AMES Facility: [facility] Facility HSV: Outpatient Exam: CHEST PORTABLE CHEST, 1 view HISTORY: Chest pain COMPARISON: None. FINDINGS: The lungs are clear. There is no evidence of effusion or other pleural disease. The mediastinumhas a normal appearance. The cardiac silhouette is unremarkable. Prior median sternotomy. IMPRESSION: No acute cardiopulmonary process Dictated By: Emmanuel Aguayo Transcribed By: Emmanuel Roland Transcribed On: 01/01/2024 10:05 AM Electronically signed by: Emmanuel Aguayo 01/01/2024 Thank you for referring SIGIFREDO ORTEGA to [facility]. Legally authenticated by CINDY LADD 2024-01-01 10:05:21 Generic Alden Provider IMG XR PROCEDURES Fi nal Result [...] documented as of this encounter Care Teams Global Marketing Specialist Relationship Specialty Start Date End Date Maryanne Wong MD [address] [place] [address] PCP - General Family Medicine 08/12/23 documented as of this encounter
--- OUTSIDE RECORDS SUMMARY | 2025-04-13 14:48 | XMS_ITS | Encounter Summary ---
Author Organization Healthcare Address [address] [place] [address] Care Team Providers Care Balance Wheel Arm Burnisher Name Role Phone Maryanne Wong MD Primary Care Provider [phone] Encounter Details Date Type Department Care Team (Late st Contact Info) Description 03/30/2024 Outside Procedure External Location [address] [place] [address] Provider, Gregorio [place] Social History Tobacco Use Types Packs/Day Years [...] Date Recorded Patient Health Questionnaire-2 Score 0 03/08/2024 Hunger Vital Sign Answer Date Recorded Within [...] Comments CT ABDOMEN PELVIS W IV CONTRAST 03/30/2024 9:54 PM EDT documented in this encounter Results * CT Abdomen Pelvis w IV Contrast (03/30/2024 9:54 PM EDT) Anatomical Region Laterality Modality Abdomen, Pelvis Computed Tomogra phy 03/30/2024 9:54 PM EDT Narrative 03/31/2024 12:34 [place] [address] Name: SIGIFREDO ORTEGA Exam Date: 03/30/2024 : 1940 Age 83 years Gender: M Physician: DEBBIE REED Facility: [facility] Facility HSV: Outpatient Exam: CT ABD PEL W (IV CONT ONLY) FINAL REPORT TECHNIQUE: null CLINICAL HISTORY: Abdominal Pain diffuse, constipation x 6 days COMPARISON: null FINDINGS: Exam: CT Abdomen and Pelvis with contrast Comparison: None Clinical history: Abdominal pain diffuse constipation x6 days Findings: Lung bases are clear. The liver, spleen and pancreas do not demonstrate any acute process. Prior cholecystectomy No choledocholithiasis or biliary obstruction. Normal adrenal glands. No renal calculi or hydronephrosis. Symmetric enhancement of the kidneys bilaterally. No abdominal aortic aneurysm. No small bowel obstruction Appendix is normal in caliber No colitis or diverticulitis. Large colonic fecal load. Large rectal stool ball. Urinary bladder is decompressed with Tran catheter. Prostate gland is enlarged. No free fluid Chronic appearing L3 compression fracture with mild 25% loss of vertebral body height. Multilevel degenerative disease of the lumbar spine. Mild bilateral hip arthritis. IMPRESSION: Impression: 1. Large amount of stool in the colon and rectum which may correspond to constipation. No colitis or diverticulitis. Authenticated and [facility] Dictated By: Sandra Wilkinson Transcribed By: Transcribed On: 03/31/2024 12:31 AM Electronically signed by: Sandra Wilkinson 03/31/2024 Thank you for referring SIGIFREDO ORTEGA to [facility]. Legally authenticated by BAN VO 2024-03-31 00:31:50 Procedure Note Provider, Generic [place] - 03/31/2024 [place] [address] Name: SIGIFREDO ORTEGA Exam Date: 03/30/2024 : 1940 Age 83 years Gender: M Physician: DEBBIE REED Facility: [facility] Facility HSV: Outpatient Exam: CT ABD PEL W (IV CONT ONLY) FINAL REPORT TECHNIQUE: null CLINICAL HISTORY: Abdominal Pain diffuse, constipation x 6 days COMPARISON: null FINDINGS: Exam: CT Abdomen and Pelvis with contrast Comparison: None Clinical history: Abdominal pain diffuse constipation x6 days Findings: Lung bases are clear. The liver, spleen and pancreas do not demonstrate any acute process. Prior cholecystectomy No choledocholithiasis or biliary obstruction. Normal adrenal glands. No renal calculi or hydronephrosis. Symmetric enhancement of the kidneys bilaterally. No abdominal aortic aneurysm. No small bowel obstruction Appendix is normal in caliber No colitis or diverticulitis. Large colonic fecal load. Large rectal stool ball. Urinary bladder is decompressed with Tran catheter. Prostate gland is enlarged. No free fluid Chronic appearing L3 compression fracture with mild 25% loss of vertebral body height. Multilevel degenerative disease of the lumbar spine. Mild bilateral hip arthritis. IMPRESSION: Impression: 1. Large amount of stool in the colon and rectum which may correspond to constipation. No colitis or diverticulitis. Authenticated and EASTERN Dictated By: Sandra Wilkinson Transcribed By: Transcribed On: 03/31/2024 12:31 AM Electronically signed by: Sandra Wilkinson 03/31/2024 Thank you for referring SIGIFREDO ORTEGA to [facility]. Legally authenticated by BNA VO 2024-03-31 00:31:50 Generic [place] Provider IMG CT PROCEDURES Fi nal Result documented in this encounter Visit Diagnoses Not on filedocumented in this encounter Additional Health Concerns Infection Onset Date Last Indicated Resolved Time COVID-19 Rule-Out 12/06/2024 12/06/2024 12/06/2024 4:53 PM EDT Influenza 12/06/2024 12/06/2024 12/16/2024 10:2 9 AM EDT Assessment Noted Time A fall risk assessment has been complete d for the patient 03/08/2024 2:49 PM EDT A Body Mass Index follow-up plan has been documented for the patient 03/08/2024 4:27 PM EDT documented as of this encounter Care Teams Balance Wheel Arm Burnisher Relationship Specialty Start Date End Date Maryanne Wong MD [address] [place] [id number] PCP - General Family Medicine 08/12/23 documented as of this encounter
--- OUTSIDE RECORDS SUMMARY | 2025-04-13 14:48 | XMS_ITS | Encounter Summary ---
Author Organization Healthcare Address [address] [place] [address] Care Team Providers Care Freelance Digital Project Manager Name Role Phone Maryanne Wong MD Primary Care Provider [phone] Encounter Details Date Type Department Care Team (Latest Contact Info) Description 2025 Travel Social History Tobacco Use Types Packs/Day [...] place to sleep or slept in a penitentiary (including now)? No 12/24/2023 PHQ-9 Answer Date [...] were you homeless or living in a penitentiary (including now)? No 12/16/2024 Safety and Environment [...] documented as of this encounter Care Teams Freelance Digital Project Manager Relationship Specialty Start Date End Date Maryanne Wong MD [address] [place] [address] PCP - General Family Medicine 08/12/23 documented as of this encounter
--- OUTSIDE RECORDS SUMMARY | 2025-04-13 14:48 | XMS_ITS | Encounter Summary ---
Author Organization Healthcare Address [address] [place] [address] Care Team Providers Care Stave Machine Tender Name Role Phone Maryanne Wong MD Primary Care Provider [phone] Encounter Details Date Type Department Care Team (Latest Contact Info) Description 03/08/2025 Travel Social History Tobacco Use Types Packs/Day [...] any time in the past 12 m [facility], were you homeless or living in a [...] documented as of this encounter Care Teams Stave Machine Tender Relationship Specialty Start Date End Date Maryanne Wong MD [address] [place] [address] PCP - General Family Medicine 08/12/23 documented as of this encounter
[2025-04-13 15:50] LABS: Hematocrit 44.5 % (42.0-52.0); Hemoglobin 15.1 g/dL (14.1-18.0); Immature Granulocytes % 0.5 %; Mean Corpuscular HGB Conc 33.9 g/dL (31.8-35.4); Mean Corpuscular Hemoglobin 29.7 pg (27.0-31.2); Mean Corpuscular Volume 87.6 fl (80-94); Nucleated Red Blood Cells % 0 %; Platelet Count 183 K/mm3 (142-424); Red Blood Count 5.08 M/mm3 (4.60-6.20); Red Cell Distribution Width-SD 41.5 fL; White Blood Count 8.9 K/mm3 (4.8-10.8)
[2025-04-13 16:45] LABS: Alanine Aminotransferase 22 U/L (12-78); Albumin Level 4.3 g/dl (3.5-5.0); Alkaline Phosphatase 77 U/L (38-126); Anion Gap 12.0 mEq/L (5-15); Aspartate Amino Transferase 23 U/L (17-59); Bilirubin,Direct 0.3 mg/dl (0.0-0.4); Bilirubin,Indirect 0.8 mg/dL (0.0-0.9); Bilirubin,Total 1.1 mg/dl (0.2-1.3); Bilirubin,Unconjugated 0.8 mg/dL (0.0-1.1); Blood Urea Nitrogen 21 mg/dl (9-20); Calcium 9.6 mg/dl (8.4-10.2); Carbon Dioxide 28 mmol/L (22.0-30.0); Chloride 101 mmol/L (98-107); Cholesterol 97 mg/dl (140-200); Creatinine,Serum 1.00 mg/dl (0.66-1.25); Estimated Glomerular Filt Rate 71 ml/min (>60); GFR (African American) 86 ML/MIN (>60); Glucose 177 mg/dl (74-100); HDL Cholesterol 40 mg/dl (40-60); Magnesium 1.9 mg/dl (1.6-2.3); Potassium 4.0 mmoL/L (3.5-5.1); Sodium 137 mmol/L (136-145); Total Protein,Serum 6.4 g/dl (6.3-8.2); Triglycerides 98 mg/dl (30-150)
[2025-04-13 17:08] LABS: Free T4 (Free Thyroxine) 0.90 ng/dl (0.78-2.19)
[2025-04-13 17:21] LABS: Thyroid Stimulating Hormone 2.98 uIU/mL (0.465-4.68)
== END 2025-04-13 23:59 | disposition home or self-care (01) ==
LOC: LAB 14:46
PROVIDERS: PCP Nurse Practitioner Family; Visit Provider Internal Medicine
DX: I25.810 Atherosclerosis of coronary artery bypass graft(s) without angina pectoris (principal); I10 Essential (primary) hypertension; M31.0 Hypersensitivity angiitis; I77.6 Arteritis, unspecified; E78.49 Other hyperlipidemia
CPT/HCPCS: 36415; 80048; 80061; 80076; 83735; 84439; 84443; 85025

== ENCOUNTER 2025-04-29 12:53 | Outpatient (CLI) | payer MEDICARE, SELFPAY ==
--- OUTSIDE RECORDS SUMMARY | 2025-02-28 10:57 | XMS_ITS | Encounter Summary ---
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] Procedures NV FIX ECTROPION,ENTENSV LID REPAIR REPAIR, ECTROPION, EYELID with full thickness skin graft Hayder Clarke MD [email or web address] [address] Phone: tel: fax: LUCINA [facility] [address] [place] [phone] Phone: tel: Referral ID Status Reason Start Date Expiration Date Visits Re quested Visits Authorized [id number] 1 2 Encounter Details Date Type Department Care Team (Latest Contact Info) Description 02/28/2025 10:57 AM EDT - 02/28/2025 5:28 PM EDT Hospital En[facility] [address] [place] [phone] Hayder Clarke MD [address] [address] Cicatricial ectropion of lower eyelids [...] place to sleep or slept in a detention (including now)? No 12/24/2023 PHQ-9 Answer Date [...] were you homeless or living in a detention (including now)? No 12/16/2024 Safety and Environment [...] Recorded In the past 12 months has [facility] [employer], gas, oil, or water company threatened to [...] Room or call the Emergency Department at [phone]. Smoking and its health risks Smoking is [...] help quitting smoking, call the National Cancer [place]'s Quitline toll free at or ask your doctor for help. Weight Management Weighing too much is not good for your health. Being overweight increases your risk of health conditions such as heart problems, high blood pressure, type 2 diabetes, and certain types of cancer. Being overweight can also increase your risk for osteoarthritis (cx-skk-fw-fvx-QCDE-viq) (joint disease), sleep apnea (abnormal breathing at [...] risk of health problems. Ask your dietitian, pool nurse or doctor about a weight loss goal [...] Association of Drug Diversion Investigators (NADDI): http://rxdrugdropbox.org/ [place] Office of Drug Control Policy: http://odcp.ky.gov/Prescription+Drug+Drop+Box+Sites.htm Are [...] or purple What is a ERIC report? [employer] is a system that tracks prescriptions of controlled substances in [place]. The ERIC report tells your doctor if you have been prescribed controlled substances in the past. Doctors must get a ERIC report before prescribing controlled substances. What can I do if the information in my ERIC report is wrong? You or your doctor may contact the dispenser who reported the information to [employer]. If the dispenser agrees that the information should be changed, he or she can fix the ERIC report. However, the dispenser may certify that the report is correct. If that is the case, you or your doctor may then call the [place] Drug Enforcement and Professional Practices Branch at [...] Your local health department may offer these. [employer]'s resources to help you quit: http://www.[facility]/TobaccoFree/ - Click on the Quit Here! tab. A telephone quit line: (4-620-FFVHDRV) Web sites: www.smokefree.gov, www.becomeanex.org, www.[employer] Tobacco Treatment Counselors: Call 361-978-1295. Medicare and Medicaid pay for this. employees, retirees, and their spouses or sponsored dependents can get free nicotine replacementtherapy and coaching. Visit www.[facility]/HR/Wellness/consults.html. [facility]: Free pamphlets [...] you can call the Eye Clinic at [phone] Clarke's correctional officer chief at [phone]. Nights, weekends or holidays, call [phone] and ask for the eye surgeon cement production plant operator. * Op Note - Hayder Clarke MD - 02/28/2025 3:11 PM EDT Operative Note Date: 02/28/25 Location: [facility] OR Name: Sigifredo Ortega : 1940, PREOPERATIVE [...] participated in all portions of the procedure. ANESTHESIOLOGY TECHNOLOGIST SURGEON: Lois Nicole MD ESTIMATED BLOOD LOSS: [...] medical history of Atherosclerotic heart disease of [place] coronary artery without angina pectoris, B12 deficiency, Basal cell carcinoma (BCC) of skin of nose (08/12/2023), COVID-19 (06/20/2023), Diabetes (CMS/[facility]), IBS (irritable bowel syndrome), Sciatica, Sleep apnea, [...] card, photo ID, along with power of senior trial attorney, guardianship or advanced directives if applicable [...] History: Diagnosis Date Atherosclerotic heart disease of [place] coronary artery without angina pectoris B12 deficiency [...] lower eyelids of both eyes Exposure keratopathy NV FIX ECTROPION,ENTENSV LID REPAIR 02/28/2025 2:50 PM EDT 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 POCT GLUCOSE METER UNSOLICITED RESULTS Routine 02/28/2025 2:47 PM EDT POCT GLUCOSE METER UNSOLICITED RESULTS Routine 02/28/2025 2:11 PM EDT documented in this encounter Results * POCT glucose meter (02/28/2025 4:38 PM EDT) [facility] POCT Glucose 90 74 - 99 [...] 02/28/2025 4:40 PM EDT [facility] Mechanic Chief ID Eileen Rossi 025 4:40 PM EDT [facility]ARE [facility] Device ID [id number] 02/28/2025 4:40 PM EDT [facility] Specimen Type POC Capillary 02/28/2025 4:40 PM EDT [facility] Blood Capillary blood specimen / Unknown 02/28/2025 4:38 PM EDT 02/28/2025 4:40 PM EDT Hayder Clarke MD LAB POINT OF CARE TE ST DOCKED DEVICE UNSOLICITED RESULTS Final Result [facility] [address] [place] [address] * POCT glucose meter (02/28/2025 2:47 PM EDT) [facility] POCT Glucose 93 74 - 99 [...] 02/28/2025 2:49 PM EDT [facility] Mechanic Chief ID Gissel Daniels 02/28/2025 2:49 PM EDT [facility] Device ID [id number] 02/28/2025 2:49 PM EDT [facility] Specimen Type POC Capillary 02/28/2025 2:49 PM EDT [facility] Blood Capillary blood specimen / Unknown 02/28/2025 2:47 PM EDT 02/28/2025 2:49 PM EDT Hayder Clarke MD LAB POINT OF CARE TE ST DOCKED DEVICE UNSOLICITED RESULTS Final Result Performing Organization Address City/[facility] Co de Phone Number [facility] [address] [place] [address] * (ABNORMAL) POCT glucose meter (02/28/2025 2:11 [...] 02/28/2025 2:12 PM EDT [facility] Mechanic Chief ID Viridiana Vásquez 02/28/2025 2:12 PM EDT HEALTHCARE LAB Device ID [id number] 02/28/2025 2:12 PM EDT HEALTHCARE LAB Specimen Type POC Capillary 02/28/2025 2:12 PM EDT [facility]ARE [facility] Blood Capillary blood specimen / Unknown 02/28/2025 2:11 PM EDT 02/28/2025 2:12 PM EDT us Hayder Clarke MD LAB POINT OF CARE TE ST DOCKED DEVICE UNSOLICITED RESULTS Final Result [facility] [address] [place] [address] documented in this encounter Visit Diagnoses Diagnosis [...] Viridiana Vásquez RN) lidocaine-EPINEPHrine (Xylocaine W/EPI) 1 %-1:447144 injection (CANCELED) As needed, Starting on Fri02/28/25 [...] documented as of this encounter Care Teams Md Do Resident Urgent Care Relationship Specialty Start Date End Date Maryanne Wong MD [address] [place] [address] PCP - General Family Medicine 08/12/23 documented as of this encounter
--- OUTSIDE RECORDS SUMMARY | 2025-02-28 14:25 | XMS_ITS | Encounter Summary ---
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] Procedures GA FIX ECTROPION,ENTENSV LID REPAIR REPAIR, ECTROPION, EYELID with full thickness skin graft Hayder Clarke MD [email or web address] [place] [phone] Phone: tel: fax: LUCINA [facility] [address] [place] [phone] Phone: tel: Referral ID Status Reason Start Date Expiration Date Visits Re quested Visits Authorized [id number] 1 2 Encounter Details Date Type Department Care Team (Late st Contact Info) Description 02/28/2025 2:25 PM EDT - 02/28/2025 3:15 PM EDT Surgery [facility] [address] [place] [phone] Hayder Clarke MD [email or web address] [place] [phone] REPAIR, ECTROPION, EYELID [[id number] (CPT )] Surgery Details Date/Time Status Location OR Service Patient Class Case Class Case Type Trauma Case? 02/28/2025 2:25 PM Posted [id number] E-Electi ve Panel 1 Procedure LRB Anes Op Region Wound Class Comments REPAIR, ECTROPION, EYELID Left General [id number] 35 min with full thickness skin graft Right Surgeon Surgeon Role Service Panel Hayder Clarke MD Primary Ophthalmology 1 Lois Nicole MD Fellow Ophthalmology 1 documented in this encounter Social History Tobacco Use Types Packs/Day Years Used Date Smoking Tobacco: Former Cigarettes 0.5 20 1 - 1979 Passive Smoke Exposure: Past Smokeless [...] money to buy more. Never true 12/17/19 25 Within the past 12 months, t he [...] place to sleep or slept in a mcc (including now)? No 12/24/2023 PHQ-9 Answer Date [...] any time in the past 12 m [facility], were you homeless or living in a mcc (including now)? No 12/16/2024 Safety and Environment [...] Recorded In the past 12 months has [facility], gas, oil, or water company threatened to [...] Sign Reading Time Taken Comments Blood Pressure 176/92 02/28/2025 12:50 PM EDT Pulse 78 02/28/2025 12:50 PM EDT Temperature 36.4 C (97.5 F) 02/28/2025 12:50 PM EDT Respiratory Rate 20 02/28/2025 12:50 PM EDT Oxygen Saturation 96% 02/28/2025 12:50 PM EDT Inhaled Oxygen Concentration - - [...] (Past 1 Month) No 025 1:21 PM EDT Viridiana Vásquez RN 2. Non-Specific Active Suici stephanie Thoughts (Past 1 Month) No 02/28/2025 1:21 PM EDT Barney Vásquez RN 6. Suicidal Behavior (Lifetime) No 5 1:21 PM EDT Viridiana Vásquez RN documented as of this encounter Discharge Instructions * Discharge Instructions* Eileen Rossi RN - 02/28/2025 4:15 PM EDT Images from the original note were not included. Post-Anesthesia and Postoperative Instructions ([place]) In order to have a fast and [...] Room or call the Emergency Department at [phone]. Smoking and its health risks Smoking is [...] help quitting smoking, call the National Cancer [place]'s Quitline toll free at or ask your doctor for help. Weight Management Weighing too much is not good for your health. Being overweight increases your risk of health conditions such as heart problems, high blood pressure, type 2 diabetes, and certain types of cancer. Being overweight can also increase your risk for osteoarthritis (dx-siz-bn-huc-WUIR-vmm) (joint disease), sleep apnea (abnormal breathing at [...] risk of health problems. Ask your dietitian, dowel setting machine operator or doctor about a weight loss [...] of controlled substances: Drug Enforcement Agency ([place]): http://www.deadiversion.[facility].gov/drug_disposal/takeback/index.htm National Association of Drug Diversion Investigators (NADDI): http://rxdrugdropbox.org/ [place] Office of Drug Control Policy: http://odcp.ky.gov/Prescription+Drug+Drop+Box+Sites.htm Are [...] look blue or purple What is a [facility] report? [facility] is a system that tracks prescriptions of controlled substances in [place]. The ERIC report tells your doctor if you have been prescribed controlled substances in the past. Doctors must get a ERIC report before prescribing controlled substances. What can I do if the information in my ERIC report is wrong? You or your doctor may contact the dispenser who reported the information to ERIC. If the dispenser agrees that the information should be changed, he or she can fix the ERIC report. However, the dispenser may certify that the report is correct. If that is the case, you or your doctor may then call the [place] Drug Enforcement and Professional Practices Branch at [...] Your local health department may offer these. 's resources to help you quit: http://www.[facility]/TobaccoFree/ - Click on the Quit Here! tab. A telephone quit line: (3-300-RBXZKPR) Web sites: www.smokefree.gov, www.becomeanex.org, www.[employer] Tobacco Treatment Counselors: Call 089-818-1790. Medicare and Medicaid pay for this. employees, retirees, and their spouses or sponsored dependents can get free nicotine replacementtherapy and coaching. Visit www.[facility]/HR/Wellness/consults.html. [facility]: Free pamphlets [...] you can call the Eye Clinic at [phone] Clarke's special police officer at [phone]. Nights, weekends or holidays, call [phone] and ask for the eye surgeon cotton tier. * Op Note - Hayder Clarke MD - 02/28/2025 3:11 PM EDT Operative Note Date: 02/28/25 Location: [facility] OR Name: Sigifredo Ortega, : 1940, PREOPERATIVE DIAGNOSES: 1. Left lower [...] participated in all portions of the procedure. DEFENSIVE DRIVING INSTRUCTOR SURGEON: Lois Nicole MD ESTIMATED BLOOD LOSS: [...] medical history of Atherosclerotic heart disease of [place] coronary artery without angina pectoris, B12 deficiency, Basal cell carcinoma (BCC) of skin of nose (08/12/2023), COVID-19 (06/20/2023), Diabetes (CMS/HCC), IBS (irritable bowel syndrome), Sciatica, Sleep apnea, [...] card, photo ID, along with power of prosecuting attorney, guardianship or advanced directives if [...] History: Diagnosis Date Atherosclerotic heart disease of [place] coronary artery without angina pectoris B12 deficiency [...] lower eyelids of both eyes Exposure keratopathy GA FIX ECTROPION,ENTENSV LID REPAIR 02/28/2025 2:50 PM EDT 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 Comment 02/28/2025 4:40 PM EDT [facility]ARE [facility] Aircraft Machinist Helper ID Eileen Rossi 025 4:40 PM EDT [facility] Device ID [id number] 02/28/2025 4:[address] [facility] Specimen Type POC Capillary 02/28/2025 4:[address] [facility] Blood Capillary blood specimen / Unknown 02/28/2025 4:38 PM EDT 02/28/2025 4:40 PM EDT Hayder Clarke MD LAB POINT OF CARE TE ST DOCKED DEVICE UNSOLICITED RESULTS Final Result [facility] [address] [place] [address] * POCT glucose meter (02/28/2025 2:47 PM EDT) [facility] POCT Glucose 93 74 - 99 mg/dL [...] for testing. Comment 02/28/2025 2:49 PM EDT [facility]ALTHCARE LAB Aircraft Machinist Helper ID Gissel Daniels 02/28/2025 2:49 PM EDT [facility]ALTH[facility]ARE LAB Device ID [id number] 02/28/2025 2:49 PM EDT [facility]ARE LAB Specimen Type POC Capillary 02/28/2025 2:49 PM EDT [facility] Blood Capillary blood specimen / Unknown 02/28/2025 2:47 PM EDT 02/28/2025 2:49 PM EDT Hayder Clarke MD LAB POINT OF CARE TE ST DOCKED DEVICE UNSOLICITED RESULTS Final Result Performing Organization Address City/[facility]/ZIP Co de Phone Number [facility] [address] [place] [address] * (ABNORMAL) POCT glucose meter (02/28/2025 2:11 PM EDT) [facility] POCT Glucose 71(L) 74 - 99 mg/dL 02/28/2025 2:12 PM EDT [facility]ALTH[facility]ARE [facility] Comment:Accuracy of a glucos e [...] for testing. Comment 02/28/2025 2:12 PM EDT [facility]ALTH[facility]ARE [facility] Aircraft Machinist Helper ID Viridiana Vásquez 02/28/2025 2:12 PM EDT [facility]ALTH[facility]ARE LAB Device ID [id number] 02/28/2025 2:12 PM EDT [facility] Specimen Type POC Capillary 02/28/2025 2:12 PM EDT [facility] Blood Capillary blood specimen / Unknown 02/28/2025 2:11 PM EDT 02/28/2025 2:12 PM EDT us Hayder Clarke MD LAB POINT OF CARE TE ST DOCKED DEVICE UNSOLICITED RESULTS Final Result 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 documented in this [...] Given 02/28/2025 1:56 PM EDT 40 mg erythromycin (Romycin) 5 MG/GM ophthalmic ointment As needed, Starting on Fri02/28/25 at 1529, Until Fri02/28/25 at 1610, Routine Given 02/28/2025 3:29 PM EDT 1 strip fentaNYL (Sublimaze) injection 25 mcg 25 mcg, [...] Given 02/28/2025 1:56 PM EDT 0.5 mL lidocaine-EPINEPHrine (Xylocaine W/EPI) 1 %-1:554209 injection As needed, Starting on Fri02/28/25 at 1515, Until Fri02/28/25 at 1610, Routine, Intraprocedure Given 02/28/2025 3:15 PM EDT 4 mL ondansetron (Zofran) injection 4 mg 4 [...] Preprocedure, line care sterile water irrigation solution As needed, Starting on Fri02/28/25 at 1529, Until Fri02/28/25 at 1610, Routine Given 02/28/2025 3:29 PM EDT 500 mL documented in this encounter Active and Recently [...] pain score of >1 out of 10 1710 (Given - Provid er: Eileen Rossi RN) erythromycin (Romycin) 5 MG/GM ophthalmic ointment (CANCELED) As needed, Starting on Fri02/28/25 at 1529, Until Fri02/28/25 at 1610, Routine 1529 (Given - Provid er: Hayder Clarke MD - Comment: on intraoperative field) fentaNYL (Sublimaze) injection 25 mcg 25 mcg, Intravenous, Every 5 min PRN, 2 doses, Starting on Fri02/28/25 at 1555, Until 02/28/25 at 1929, Routine, Recovery (Phase I only), pain score of 3-4 out of 10 HYDROmorphone (Dilaudid) injection 0.5 mg 0.5 mg, Intravenous, Every 10 min PRN, 2 doses, Starting on Fri02/28/25 at 1555, Until 02/28/25 at 1929, Routine, Recovery (Phase I only), pain score of 9-10 out of 10 lidocaine (Xylocaine) 1 % injection 0.5 mL (COMPLETED) 0.5 mL, Injection, Once as needed, 1 dose, Starting on Fri02/28/25 at 1306, Until Fri02/28/25 at 1356, Routine, Holding - Preprocedure, If needed to start an IV. 1356 (Given - Provid er: Viridiana Vásquez RN) lidocaine-EPINEPHrine (Xylocaine W/EPI) 1 %-1:913090 injection (CANCELED) As needed, Starting on Fri02/28/25 [...] documented as of this encounter Care Teams [employer]ault Custodian Relationship Specialty Start Date End Date Maryanne Wong MD [address] [place] [address] PCP - General Family Medicine 08/12/23 documented as of this encounter
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
--- OUTSIDE RECORDS SUMMARY | 2025-03-08 16:00 | XMS_ITS | Encounter Summary ---
Author Organization Healthcare Address [address] [place] [address] Care Team Providers Care Hand Trucker Name Role Phone Maryanne Wong MD Primary Care Provider [phone] Reason for Visit * Reason Comments Post-op Encounter Details Date Type Department Care Team (Late st Contact Info) Description 03/08/2025 4:00 PM EDT Office Visit [facility] [address] [place] [address] Hayder Clarke MD 110 [facility] [address] [place] [address] Cicatricial ectropion of lower eyelids [...] place to sleep or slept in a senior care (including now)? No 12/24/2023 PHQ-9 Answer Date [...] any time in the past 12 m [facility], were you homeless or living in a senior care (including now)? No 12/16/2024 Safety and Environment [...] 02/23/2025) Blood Glucose Monitoring Suppl (Accu-Chek Guide Nd) w/Device kit in the morning and at [...] two tubes Review in on month in [facility] Instructed pt to call if any issues [...] documented as of this encounter Care Teams Hand Trucker Relationship Specialty Start Date End Date Maryanne Wong MD [address] [place] [phone] PCP - General Family Medicine 08/12/23 documented as of this encounter
--- OUTSIDE RECORDS SUMMARY | 2025-03-28 14:40 | XMS_ITS | Encounter Summary ---
Author Organization Healthcare Address [address] [id number] Care Team Providers Care Cognos Bi Administrator Name Role Phone Maryanne Wong MD Primary Care Provider [phone] Reason for Visit * Reason Comments bump Pt has spots/ bumps on hand and arm, no pain or itching, has been there for about a month Encounter Details Date Type Department Care Team (Late st Contact Info) Description 03/28/2025 2:40 PM EDT Office Visit [facility] [address] [place] [address] Mini Short, WATER REGULATOR AND VALVE REPAIRER [address] [place] [address] Changing skin lesion (Primary Dx) [...] time in the past 12 m [facility], were you homeless or living [...] lesions on his forearms. Does have a logistics solution manager but does not want to go back [...] PM EDT) Case Report Surgical Pathology Case: [id number] Authorizing Provider: Mini Short APRN Collected: 03/28/2025 1526 Ordering Location: [facility] & Received: 03/28/2025 [facility] Pathologist: Sigifredo Dejesus MD Specimen: Wrist, Left, Wrist, left 03/31/2025 11:38 AM EDT [facility] Final Diagnosis A. 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 03/31/2025 11:38 AM EDT [facility] at 1138 EDT Clinical Information raised pearly hard nodule that scabs and will not heal L98.9 - Changing skin lesion [ICD-10-CM] 03/31/2025 11:38 AM EDT [facility] Gross Description A. WRIST, LEFT Received in formalin labeled wrist, left is a pink-salas skin fragment measuring 1.5 x 1.2 x 0.6 cm. The skin surface is rounded, roughened, and crusted. Resection margin inked blue, serially sectioned, and entirely submitted in cassettes A1-A2 with ends submitted in cassette A1. Lisbeth Lopez Agata 03/31/2025 11:38 AM EDT [facility] Note: A resident was involved in the service. I attest I examined the relevant preparations for the specimens and confirmed the diagnosis or interpretation. 03/31/2025 11:38 AM EDT [facility] Tissue Structure of left wrist region / Unknown Non-blood Collection / Unknown 03/28/2025 3:26 PM EDT 03/28/2025 3:26 PM EDT Mini Short APRN LAB PATHOLOGY ORDERABLES Constanza stewart Result [facility] [address] [place] [address] * Lesion biopsy (03/28/2025 2:40 PM EDT) [...] for mild pressure us Mini Smart Deja WATER REGULATOR AND VALVE REPAIRER DERM PROCEDURE ORDERABLES Fin al Result documented [...] documented as of this encounter Care Teams Cognos Bi Administrator Relationship Specialty Start Date End Date Maryanne Wong MD [address] [place] [phone] PCP - General Family Medicine 08/12/23 documented as of this encounter
--- OUTSIDE RECORDS SUMMARY | 2025-04-05 09:15 | XMS_ITS | Encounter Summary ---
Author Organization Healthcare Address [address] [place] [address] Care Team Providers Care Naval Aircrewman Tactical Helicopter Name Role Phone Maryanne Wong MD Primary Care Provider [phone] Reason for Visit * Reason Comments Post-op Encounter Details Date Type Department Care Team (Late st Contact Info) Description 2025 9:15 AM EDT Office Visit [facility] [address] [place] [address] Hayder Clarke MD [address] [place] [address] Cicatricial ectropion of lower eyelids [...] any time in the past 12 m [facility], were you homeless or living in [...] Syringe U/F 31G X 02/11 1 ML [facility] [place] Blood Glucose Monitoring Suppl (Accu-Chek Guide Sd) w/Device kit in the morning and at [...] documented as of this encounter Care Teams Naval Aircrewman Tactical Helicopter Relationship Specialty Start Date End Date Maryanne Wong MD [address] [place] [address] PCP - General Family Medicine 08/12/23 documented as of this encounter
--- OUTSIDE RECORDS SUMMARY | 2025-04-29 12:58 | XMS_ITS | Encounter Summary ---
Author Organization Healthcare Address [address] [id number] Care Team Providers Care Director Of Critical Care Name Role Phone Maryanne Wong MD Primary Care Provider Encounter Details Date Type Department Care Team (Late st Contact Info) Description 09/04/2023 Outside Procedure External Location [address] [place] [address] Provider, Gregorio [place] Social History Tobacco Use Types Packs/Day Years [...] AM EST Narrative 09/08/2023 11:40 AM EST [address] [address] Name: SIGIFREDO ORTEGA Exam Date: 09/04/2023 : 1940 Age 83 Gender: M Physician: ABIODUN THOMAS Facility: [facility] Facility HSV: Outpatient Exam: MRI [...] to [facility]. Legally authenticated by SLIM Shepherd 2023-09-08 11:24:59 Procedure Note Provider, Generic [place] - 09/08/[address] [place] [address] Name: SIGIFREDO ORTEGA Exam Date: 09/04/2023 : 1940 Age 83 Gender: M Physician: ABIODUN THOMAS Facility: [facility] Facility HSV: Outpatient Exam: MRI [...] Thank you for referring SIGIFREDO ORTEGA to [facility]. Legally authenticated by SLIM Shepherd 2023-09-08 11:24:59 Generic [place] Provider IMG MRI PROCEDURES F inal Result [...] as of this encounter Care Teams Director Of Critical Care Relationship Specialty Start Date End Date Maryanne Wong MD [address] [place] [address] PCP - General Family Medicine 08/12/23 documented as of this encounter
--- OUTSIDE RECORDS SUMMARY | 2025-04-29 12:58 | XMS_ITS | Encounter Summary ---
Author Organization Healthcare Address [address] [id number] Care Team Providers Care K9 Handler Name Role Phone Maryanne Wong MD Primary Care Provider [phone] Encounter Details Date Type Department Care Team ([facility] st Contact Info) Description 08/15/2023 Outside Procedure External Location [address] [place] [address] Provider, Gregorio [place] Social History Tobacco Use Types Packs/Day Years [...] PM EST Narrative 08/15/2023 10:20 PM EST [address] [address] Name: SIGIFREDO ORTEGA Exam Date: 08/15/2023 : 1940 Age 83 Gender: M Physician: TAHMINA BATISTA Facility: [facility] Facility HSV: Outpatient Exam: CT ABD [...] you for referring SIGIFREDO ORTEGA to [facility]. Legally authenticated by QUANG Nichole 2023-08-15 22:06:17 Procedure Note Provider, Gregorio [place]os[place] - 08/15/2023 [address] [place] [address] Name: SIGIFREDO ORTEGA Exam Date: 08/15/2023 : 1940 Age 83 Gender: M Physician: TAHMINA BATISTA Facility: [facility] Facility HSV: Outpatient Exam: CT ABD [...] Thank you for referring SIGIFREDO ORTEGA to [facility]. Legally authenticated by QUANG Nichole 2023-08-15 22:06:17 us Generic [place] Provider IMG CT PROCEDURES Fi nal Result [...] documented as of this encounter Care Teams K9 Handler Relationship Specialty Start Date End Date Maryanne Wong MD [address] [facility] [place] [address] PCP - General Family Medicine 08/12/23 documented as of this encounter
--- OUTSIDE RECORDS SUMMARY | 2025-04-29 12:58 | XMS_ITS | Encounter Summary ---
Author Organization Healthcare Address [address] [id number] Care Team Providers Care Location Director Name Role Phone Maryanne Wong MD Primary Care Provider [phone] Encounter Details Date Type Department Care Team (Late st Contact Info) Description 08/29/2023 Outside Procedure External Location [address] [place] [address] Maryanne Wong MD [address] [place] [address] Social History Tobacco Use Types [...] AM EST Narrative 08/29/2023 2:09 PM EST [place] [id number] Name: SIGIFREDO ORTEGA Exam Date: 08/29/2023 : 1940 Age 83 Gender: M Physician: MARYANNE FRANKLIN Facility: [facility] Facility HSV: Outpatient Exam: MRA BRAIN [...] Thank you for referring SIGIFREDO ORTEGA to [facility]. Legally authenticated by SLIM Shepherd 2023-08-29 13:55:28 Procedure Note Provider, Generic [place] - 08/29/2023 [address] [place] [address] Name: SIGIFREDO ORTEGA Exam Date: 08/29/2023 : 1940 Age 83 Gender: M Physician: MARYANNE FRANKLIN Facility: [facility] Facility HSV: Outpatient Exam: MRA BRAIN [...] Thank you for referring SIGIFREDO ORTEGA to [facility]. Legally authenticated by SLIM Shepherd 2023-08-29 [...] documented as of this encounter Care Teams Location Director Relationship Specialty Start Date End Date Maryanne Wong MD [address] [place] [phone] PCP - General Family Medicine 08/12/23 documented as of this encounter
--- OUTSIDE RECORDS SUMMARY | 2025-04-29 12:58 | XMS_ITS | Clinical Summary ---
Author Organization Healthcare Address [address] [place] [address] Care Team Providers Care Adoption Coordinator Name Role Phone Maryanne Wong MD Primary Care Provider [phone] Allergies Active Allergy Reactions Criticality Noted Date Comments Morphine Anaphylaxis High 07/20/2020 Penicillins Unknown - Patient st ates they do not know rxn details Low 12/23/2014 From Childhood- patient denies, has taken penicillin without reaction Medications atorvastatin (Lipitor) 40 MG tablet Take 1 tablet by mouth daily. 1 Active insulin glargine (Lantus) 100 UNIT/ML injection 45 Units nightly. 0 Active insulin aspart (NovoLOG FLEXPEN) 100 UNIT/ML injection Pt takes 8units in am, 9units at lunch, 9units with dinner. 0 Active metoprolol tartrate (Lopressor) 25 MG tablet Take by mouth 2 times a day. 1 Active Accu-Chek Softclix Lancets lancets 1 Active BD Insulin Syringe U/F 31G X 5/16 1 ML misc 1 Active insulin pen needle (B-D ULTRAFINE III SHORT PEN) 31G X 8 mm misc 1 each in the morning and 1 each at noon and 1 each in the evening. 1 Active glucose blood (Accu-Chek Guide) test strip 1 Active Blood Glucose Monitoring Suppl (Accu-Chek Guide Me) w/Device kit in the morning and at noon and in the evening. for testing. 0 Active lisinopril 30 MG tablet Take 1 tablet by mouth daily. 3 Active Fluocinolone Acetonide Scalp 0.01 % oilIndications: Seborrheic dermatitis Apply 1 Application topically 2 (two) times a day. 118.28 mL 1 3 Active Calcium Carbonate-Vitam in D (calcium-vitami n D) 500-200 MG-UNIT tablet Take 1 tablet by mouth daily. Active tobramycin-dexa methasone (TobraDex) ophthalmic ointment Apply 0.5 inches to both eyes 3 (three) times a day. 3.5 g 4 Active hydroxychloroqu ine (Plaquenil) 200 MG tablet Take 1 tablet by mouth daily. Active erythromycin (Romycin) 5 MG/GM ophthalmic ointment Apply 1 Application to both eyes nightly. 4 Active predniSONE (Deltasone) 5 MG tablet Take 1 tablet by mouth daily. 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 [address] [place] [address] Mini Short APRN 03/29/2025 Telephone [facility] [address] [place] [address] Maryanne Wong MD HCN - Patient Message 03/28/2025 2:40 PM EDT Office Visit 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); Exposure keratopathy 03/08/2025 Travel 02/28/2025 2:54 PM EDT Anesthesia Event [facility] [address] [place] [address] Shena Doty MD 02/28/2025 2:25 PM EDT - 02/28/2025 3:15 PM EDT Surgery [address] [address] Hayder Clarke MD REPAIR, ECTROPION, EYELID [21312 (CPT )] 02/28/2025 10:57 AM EDT - 02/28/2025 5:28 PM EDT Hospital Encounter [address] [address] Hayder Clarke MD 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 No 12/24/2023 PHQ-9 Answer Date [...] any time in the past 12 m [facility], were you homeless or living in a [facility] (including now)? No 12/16/2024 Safety and Environment [...] In the past 12 months has e [employer], gas, oil, or water company threatened to [...] or (1 - 1-dose 75+ series) 2017 PEG-SBTFW-49 Vaccine (7 - Moderna risk season) 2024 06/27/2024, 10/07/2023, 05/10/2022, Additional history exists [facility]-Influenza Vaccine (#1) 05/30/202506/27, 09/09/2023, 06/30/2022, Additional history exists [facility]-Infant/Child/Adol SDOH Screenings 06/08/2025 12/06/2024 [facility]- SDOH Screenings [...] ANESTHESIA PLACEHOLDER Routine 02/28/2025 3:02 PM EDT MO AN ELECTIVE ENDOTRACHEAL AIRWAY Routine 02/28/2025 3:02 PM EDT APPLICATION, GRAFT, SKIN, FULL-THICKNESS, TO EYELID 02/28/2025 2:50 PM EDT 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 03/31/2025 11:38 AM EDT [facility] at 1138 EDT Clinical Information raised pearly hard nodule that scabs and will not heal L98.9 - Changing skin lesion [ICD-10-CM] 03/31/2025 11:38 AM EDT [facility] Gross Description A. WRIST, LEFT Received in formalin labeled wrist, left is a pink-salas skin fragment measuring 1.5 x 1.2 x 0.6 cm. The skin surface is rounded, roughened, and crusted. Resection margin inked blue, serially sectioned, and entirely submitted in cassettes A1-A2 with ends submitted in cassette A1. Lisbeth Lopez Parmar 03/31/2025 11:38 AM EDT [facility] Note: A resident was involved in the service. I attest I examined the relevant preparations for the specimens and confirmed the diagnosis or interpretation. 03/31/2025 11:38 AM EDT [facility] Tissue Structure of left wrist region / Unknown Non-blood Collection / Unknown 03/28/2025 3:26 PM EDT 03/28/2025 3:26 PM EDT us Mini Short APRN LAB PATHOLOGY ORDERABLES Constanza stewart Result [facility] [address] [place] [address] * Lesion biopsy (03/28/2025 2:40 PM EDT) [...] Coban applied for mild pressure us Mini Short BATTERY CONTAINER TESTER DERM PROCEDURE ORDERABLES Fin al Result * POCT glucose meter (02/28/2025 4:38 PM EDT) Only the most recent of3 resultswithin the time period is included. POCT Glucose 90 74 - 99 mg/dL 02/28/2025 4:40 PM EDT [facility] Comment:Accuracy of a glucos e result [...] for testing. Comment 02/28/2025 4:40 PM EDT [facility] Cross Cut Saw Operator ID Eileen Rossi 025 4:40 PM EDT [facility] Device ID [id number] 02/28/2025 4:40 PM EDT [facility] Specimen Type POC Capillary 02/28/2025 4:40 PM EDT [facility] Blood Capillary blood specimen / Unknown 02/28/2025 4:38 PM EDT 02/28/2025 4:40 PM EDT us Hayder Clarke MD LAB POINT OF CARE TE ST DOCKED DEVICE UNSOLICITED RESULTS Final Result Performing Organization Address City/State/[facility] Co de Phone Number [facility] [address] [place] [address] * MO AN ELECTIVE ENDOTRACHEAL AIRWAY, PB ANESTHESIA PLACEHOLDER [...] <6.0% Children and Adolescents <7.5% . Source: [place] [employer]. Standards of medical care in diabetes, 2017. Diabetes Care.2017:40 (suppl 1):S1-S135. . HbA1c assay performed by an ion-exchange chromatography method that is certified traceable to the DCCT. 02/28/2021 10:1 7 AM EDT 02/28/2021 1:07 PM EDT us Maryanne Wong MD LAB BLOOD ORDERABLES Final Res ult SUNQUEST from Last 3 Months or Most Recently Relevant to Health Maintenance Insurance [address] [address] MEDICARE Care Teams Adoption Coordinator Relationship Specialty Start Date End Date Maryanne Wong MD [address] [place] [address] PCP - General Family Medicine 08/12/23
--- OUTSIDE RECORDS SUMMARY | 2025-04-29 12:58 | XMS_ITS | Encounter Summary ---
Author Organization Healthcare Address [address] [place] [address] Care Team Providers Care Showroom Salesperson Name Role Phone Maryanne Wong MD Primary Care Provider [phone] Encounter Details Date Type Department Care Team [...] place to sleep or slept in a longterm (including now)? No 12/24/2023 PHQ-9 Answer Date [...] any time in the past [address] [facility], were you homeless or living in a longterm (including now)? No 12/16/2024 Safety and Environment [...] documented as of this encounter Care Teams Showroom Salesperson Relationship Specialty Start Date End Date Maryanne Wong MD [address] [place] [address] PCP - General Family Medicine 08/12/23 documented as of this encounter
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
--- OUTSIDE RECORDS SUMMARY | 2025-04-29 12:58 | XMS_ITS | Encounter Summary ---
Author Organization [facility] Address [address] [place] [id number] Care Team Providers Care Mold Setter Name Role Phone Gladis Gallagher MD Primary Care Provider [phone] Reason for Visit * Reason Comments Med Refill Encounter Details Date Type Department Care Team (Late st Contact Info) Description 03/14/2025 Refill [facility] [address] [address] Abena Friend PA [address] [address] Social History Tobacco Use Types Packs/Day Years [...] on file documented as of this encounter Progress Notes * Rabia Brennan MA - 03/14/2025 4:07 PM EDTAddended by: RABIA BRENNAN on: 03/14/2025 04:07 PM Modules accepted: Orders * Amita Mccullough RegSched Rep - 03/14/2025 4:05 PM EDTAddended by: AMITA MCCULLOUGH on: 03/14/2025 04:05 PM Modules accepted: Orders documented in this encounter Miscellaneous Notes * Telephone Encounter - Rabia Brennan MA - 03/14/2025 4:06 PM EDT Patient called back and is completely out, will send rx per protocol. * Telephone Encounter - Amita Mccullough RegSched Rep - 03/14/2025 4:04 PM EDT Patient called office, stated that patient is needing a refill on lantus he is out. Needing sent [facility] pharmacy in [place], [place]. documented in this encounter Plan of Treatment Upcoming Encounters Date Type Department Care Team (Late st Contact Info) Description 08/02/2025 2:30 PM EST Office Visit [facility] [address] [address] Abena Friend PA [address] [address] documented as of this encounter Visit Diagnoses Not on filedocumented in this encounter Care Teams Mold Setter Relationship Specialty Start Date End Date Gladis Gallagher MD [address] [place] [address] PCP - General Family Medicine 07/20/20 documented as of this encounter
--- OUTSIDE RECORDS SUMMARY | 2025-04-29 12:58 | XMS_ITS | Encounter Summary ---
Author Organization Healthcare Address [address] [id number] Care Team Providers Care Inspector Machine Parts Name Role Phone Maryanne Wong MD Primary Care Provider [phone] Reason for Visit * Reason Comments Med Refill Encounter Details Date Type Department Care Team (Late st Contact Info) Description 10/06/2023 Refill [facility] [address] [place] [address] Maryanne Wong MD [address] [place] [address] Vasculitis (CMS/HCC) Social History Tobacco [...] refill of prednisone. * Telephone Encounter - Kacie Pittman - 10/06/2023 9:25 AM EST Not [...] documented as of this encounter Care Teams Inspector Machine Parts Relationship Specialty Start Date End Date Maryanne Wong MD [address] [place] [address] PCP - General Family Medicine 08/12/23 documented as of this encounter
--- OUTSIDE RECORDS SUMMARY | 2025-04-29 12:58 | XMS_ITS | Encounter Summary ---
Author Organization [facility] Address [address] [place] [address] Care Team Providers Care Instrumental Music Teacher Name Role Phone Gladis Gallagher MD Primary Care Provider [phone] Maryanne Wong MD Primary Care Provider [phone] Encounter Details Date Type Department Care Team (Late st Contact Info) Description 02/04/2023 Outside Procedure External Location [address] [place] [address] Margarito Martell MD [address] [place] [address] Social History Tobacco Use Types [...] PM EDT Narrative 02/06/2023 10:00 AM EDT [place] [address] [place] [address] Name: SIGIFREDO ORTEGA Exam Date: 02/04/2023 : 1940 Age 82 Gender: M Physician: MARGARITO MARTELL Facility: [facility] Facility HSV: Outpatient Exam: ECHO W SPEC [...] There is no aortic stenosis. AV peak [id number]=617cv/sec. There is no aortic regurgitation. Tricuspid valve: [...] Thank you for referring SIGIFREDO ORTEGA to [facility]. Legally authenticated by JOVI Willard 2023-02-06 09:49:02 Procedure Note Provider, Generic [place] - 02/06/2023 [place] [address] Name: SIGIFREDO ORTEGA Exam Date: 02/04/2023 : 1940 Age 82 Gender: M Physician: MARGARITO MARTELL Facility: [facility] Facility HSV: Outpatient Exam: ECHO W SPEC [...] There is no aortic stenosis. AV peak [id number]=888dd/sec. There is no aortic regurgitation. Tricuspid valve: [...] On: 02/06/2023 9:49 AM Electronically signed by: MARAGRITO MARTELL 02/06/2023 Thank you for referring SIGIFREDO ORTEGA to [facility]. Legally authenticated by JOVI Willard 2023-02-06 09:49:02 [...] documented as of this encounter Care Teams Instrumental Music Teacher Relationship Specialty Start Date End Date Gladis Gallagher MD [address] [place] [address] PCP - General 02/09/21 08/11/23 Maryanne Wong MD [address] [place] [address] PCP - General Family Medicine 08/12/23 documented as of this encounter
--- OUTSIDE RECORDS SUMMARY | 2025-04-29 12:58 | XMS_ITS | Encounter Summary ---
Author Organization Healthcare Address [address] [place] [address] Care Team Providers Care Cut Off Sawyer Log Name Role Phone Maryanne Wong MD Primary Care Provider [phone] Encounter Details Date Type Department Care Team [...] documented as of this encounter Care Teams Cut Off Sawyer Log Relationship Specialty Start Date End Date Maryanne Wong MD [address] [place] [address] PCP - General Family Medicine 08/12/23 documented as of this encounter
--- OUTSIDE RECORDS SUMMARY | 2025-04-29 12:58 | XMS_ITS | Clinical Summary ---
Author Organization [facility] Address [address] [place] [address] Care Team Providers Care Health Science Instructor Name Role Phone Gladis Gallagher MD Primary Care Provider [phone] Allergies Active Allergy Reactions Criticality Noted Date Comments Morphine Anaphylaxis High 07/20/2020 Penicillins Unknown (See Comments) Low 12/23/2014 From Childhood- patient denies, has taken penicillin without reaction Medications vitamin D (ERGOCALCIFEROL) 1.25 MG (62534 UT) capsule capsule Take 1 capsule by mouth Every 7 (Seven) Days. 0 Active Blood Glucose Monitoring Suppl (Accu-Chek Guide Me) w/Device kit 1 each 3 (Three) Times a Day. Use as directed 1 kit 1 Active betamethasone dipropionate 0.05 % cream APPLY TO BOTH FEET TWICE A DAY 1 Active Fluocinolone Acetonide Scalp 0.01 % oil APPLY TOPICALLY AT BEDTIME X 2 WEEKS AND THEN 2 WEEKS OFF. 2 Active ketoconazole (NIZORAL) 2 % shampoo TAKE 1 UNSPECIFIED EVERY OTHER DAY TOPICALLY LET SIT FOR 5 MINS BEFORE RINSING. AVOID THE EYES. 2 Active colchicine 0.6 MG tablet Take 1 tablet by mouth Daily. 3 Active Accu-Chek Softclix Lancets lancets USE TO TEST 3 TIMES A DAY 300 each 3 4 Active hydroCHLOROthiaz rosalia 50 MG tablet Take 1 tablet by mouth Daily. 90 tablet 3 4 Active predniSONE (DELTASONE) 5 MG tablet Please see attached for detailed directions 4 Active TobraDex 0.3-0.1 % ophthalmic ointment APPLY 0.5 INCHES TO BOTH EYES 3 (THREE) TIMES A DAY. 4 Active atorvastatin (LIPITOR) 40 MG tablet Take 1 tablet by mouth every night at bedtime. 90 tablet 4 Active BD Insulin Syringe U/F 31G X / 1 ML misc Inject 1 each under the skin into the appropriate area as directed Daily. 100 each 5 Active NovoLOG FlexPen 100 UNIT/ML solution pen-injector sc pen Inject 10 units with breakfast, 10 units with lunch and 10 units with dinner 30 mL 1 5 Active Insulin Pen Needle (B-D ULTRAFINE III SHORT PEN) 31G X 8 MM misc Use 3 a day dx e11.65 300 each 3 5 Active Insulin Syringe-Needle U-100 (BD Insulin Syringe U/F) 30G X 1/2 0.3 ML misc Use daily as directed dx e11.65 100 each 3 5 Active metoprolol tartrate (LOPRESSOR) 25 MG tablet TAKE 1 TABLET BY MOUTH TWICE A DAY 60 tablet 3 5 Active hydroxychloroqui ne (PLAQUENIL) 200 MG tablet Take 2 tablets by mouth Daily. 60 tablet 5 5 Active Accu-Chek Guide Test test strip 3 TIMES A DAY TESTING 300 each 3 5 Active lisinopril (PRINIVIL,ZESTRI L) 30 MG tablet TAKE 1 TABLET BY MOUTH DAILY. TO REPLACE QUINAPRIL 90 tablet 2 5 Active Lantus 100 UNIT/ML injection INJECT 54 UNITS DAILY DIRECTED. MAX DOSE 60 UNITS 60 mL 3 5 Active Active Problems Problem Noted Date Diagnosed Date Vasculitis 05/19/2024 Assessment & Plan (11/24/2024 2:30 PM EST): Medication/treatment/interventions tried include: He saw dermatology (Dr. Sung), prednisone, gabapentin, colchicine, he has had back injections, he has seen ophthalmology at , previously he was given IV Rituximab once/week x 4 weeks. 03/21/21 JEFF positive 1:80 speckled 8/21/24 JEFF positive. Other autoimmune tests normal. We have prescribed him hydroxychloroquine. Check labs Follow up in 6 months We gave him a handout on hydroxychloroquine to take home and review. Orders: CBC Auto Differential; Future Comprehensive Metabolic Panel; Future C-reactive Protein; Future Sedimentation Rate; Future Assessment & Plan (06/23/2024 3:05 PM EDT): Medication/treatment/interventions tried include: He saw dermatology (Dr. Sung), prednisone, gabapentin, colchicine, he has had back injections, he has seen ophthalmology at , previously he was given IV Rituximab once/week x 4 weeks. 03/21/21 JEFF positive 1:80 speckled He was referred to out clinic for vasculitis. Type was unspecified. We performed a battery of tests on 04/2024. ANCA testing for vasculitis was negative as was rheumatoid arthritis testing. He dd have mild elevation of the TPO which is a thyroid antibody test. He does have a positive JEFF, but subtypes are negative. JEFF was 1:160 speckled pattern 4. 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 He did not start Plaquenil after last visit he does not remember hearing about this prescription. We will start Plaquenil today. We discussed side effects including vision loss, headaches, nausea. He also has raised white lesions that are hard on both arms and scalp. These do look consistent with actinic keratosis. He is to see dermatology and get their opinion. Handouts on actinic keratosis and Plaquenil given to patient today. Follow-up in [address] Doty We discussed his positive TPO. He will speak to retail experience specialist about this to discuss if he thinks this could be related to a thyroid disorder. If so he will need to be referred to endocrinology. Assessment & Plan (05/19/2024 2:58 PM EDT): Medication/treatment/interventions tried include: He saw dermatology (Dr. Sung), prednisone, gabapentin, colchicine, he has had back injections, he has seen ophthalmology at , previously he was given IV Rituximab once/week x 4 weeks. 03/21/21 JEFF positive 1:80 speckled The referral indicates that he has vasculitis. No supporting documentation is provided. No further clarification as to what type of vasculitis he is thought to have is provided. In 2020 I can see that he was JEFF positive. The referral also indicates he has ptosis. He is seeing ophthalmology. I am not certain that these two issues are in any way related. We will check labs today to evaluate for autoimmune diseases/inflammatory types of arthritis. Currently he is on 5 mg/day of prednisone and the breakouts he was having have calmed own. He says he received Rituximab for this issue years ago. He does not know who oversaw or prescribed this. He can give me no details. His son is with him and can give me no details. We will try him on hydroxychloroquine 200 mg PO BID. Risks and benefits reviewed. High risk medication use 05/19/2024 Assessment & Plan (11/24/2024 2:30 PM EST): Hydroxychloroquine 200 mg PO BID For ? Vasculitis Patient's taking hydroxychloroquine should have an eye exam at least once/year to monitor for signs of medication toxicity Orders: CBC Auto Differential; Future Comprehensive Metabolic Panel; Future C-reactive Protein; Future Sedimentation Rate; Future Assessment & Plan (06/20/2024 5:38 PM EDT): Hydroxychloroquine 200 mg PO BID For ? Vasculitis Patient's taking hydroxychloroquine should have an eye exam at least once/year to monitor for signs of medication toxicity Assessment & Plan (05/19/2024 2:58 PM EDT): Hydroxychloroquine 200 mg PO BID For ? Vasculitis Patient's taking hydroxychloroquine should have an eye exam at least once/year to monitor for signs of medication toxicity Mixed hyperlipidemia 10/23/2020 Assessment & Plan (08/02/2021 1:40 PM EDT): Continue statin. Plan to check lipids next visit. Type 2 diabetes mellitus, wi th long-term current use of insulin 07/20/2020 Assessment & Plan (08/02/2021 1:48 PM EDT): Diabetes is unchanged. A1c acceptable for his age and also due to epidural injections. Continue current treatment regimen. Diabetes will be reassessed in 3 months. Essential hypertension 07/20/2020 Assessment & Plan (08/02/2021 1:40 PM EDT): Hypertension is unchanged. Continue current treatment regimen. Blood pressure will be reassessed at the next regular appointment. Resolved Problems Problem Noted Date Diagnosed Date Resolved Date Positive JEFF (antinuclear antibody) 06/20/2024 11/24/2024 Assessment & Plan (06/23/2024 3:09 PM EDT): Subtypes negative I spent 44 minutes in total patient care. Patient care activities included reviewing and updating chart, performing physical and history, explaining vasculitis as well as actinic keratosis, ordering labs, reviewing labs, answering questions and discussing and ordering medication. Encounters Date Type Department Care Team Description 2025 Telephone [facility] [address] [place] [address] Abena Friend PA 03/14/2025 Refill [facility] [address] [place] [address] Abena Friend PA from Last 3 Months Immunizations Immunization Administration Dates Next Due COVID-19 (MODERNA) 1st,2nd,3rd Dose Monovalent 0 06/27/2024 Fluzone High-Dose 65+YRS 06/27/2024 Family History Medical History Relation Name Comments Cancer Father Hyperlipidemia Father Hypertension Father Cancer Mother Diabetes Mother Diabetes type II Sister Relation Name Status Comments Father Mother Sister Social History Tobacco Use Types Packs/Day Years Used Date Smoking Tobacco: Former Cigarettes Q uit: 1984 Passive Smoke Exposure: Never Smokeless Tobacco: Never Tobacco Cessation:Counseling Given: Not Answered Comments:caffeine use-5+ drinks per day Alcohol Use Standard Drinks/Week Comments Not Currently 0 (1 standard drink = 0.6 oz pur e alcohol) Sex and Gender Information Value Date Recorded Sex Assigned at Not on file Legal Sex Male 1:30 PM EDT Gender Identity Not on file Sexual Orientation Not on file Last Filed Vital Signs Vital Sign Reading Time Taken Comments Blood Pressure 120/60 11/24/2024 2:05 PM EST Pulse 62 11/24/2024 2:05 PM EST Temperature 36.7 C (98.1 F) 11/24/2024 2:05 PM EST Respiratory Rate - - Oxygen Saturation 94% 07/12/2024 1:59 PM EDT Inhaled Oxygen Concentration - - Weight 88.5 kg (195 lb) 11/24/2024 2:05 PM EST Height 177.8 cm (5' 10 ) 11/24/2024 2:05 PM EST Body Mass Index 27.98 11/24/2024 2:05 PM EST Plan of Treatment Upcoming Encounters Date Type Department Care Team (Late st Contact Info) Description 08/02/2025 2:30 PM EST Office Visit [facility] [address] [facility] [address] [place] [address] Abena Friend PA [address] [facility] [address] [place] [address] Health Maintenance Due Date Last Done Comments ZOSTER VACCINE (1 of 2) 1992 RSV Vaccine - Adults (1 - 1- dose 75+ series) 2017 LIPID PANEL 02/28/2022 02/28/2021 DIABETIC FOOT EXAM 11/06/2022 11/06/2021, 0 11/06/2021, 11/06/2021, Additional history exists DIABETIC EYE EXAM 12/27/2022 12/27/2021 URINE MICROALBUMIN-CREATININ E RATIO (uACR) 03/25/2024 03/25/2023, 02/07/2022, 07/20/2020 COVID-19 Vaccine (2023-2 5 season) 2024 06/27/2024, 10/07/2023, 05/10/2022, Additional history exists HEMOGLOBIN A1C 01/10/2025 07/12/2024, 02/27, 06/26/2023, Additional history exists INFLUENZA VACCINE 06/29/2025 06/27/2024, , 06/30/2022, Additional history exists ANNUAL WELLNESS VISIT 07/27/2025 07/27/2024 TDAP/TD VACCINES (2 - Td or Tdap) 03/23/2031 021 Pneumococcal Vaccine 50+ Completed 024, 08/27/2019, 07/25/2018 Procedures Procedure Name Priority Date/Time Associated Diagnosis Comments POCT GLYCOSYLATED HEMOGLOBIN (HGB A1C) Routine 07/12/2024 2:18 PM EDT Type 2 diabetes mellitus with hyperglycemia, with long-term current use of insulin MICROALBUMIN / CREATININE URINE RATIO Routine 03/25/2023 2:15 PM EDT Type 2 diabetes mellitus with hyperglycemia, with long-term current use of insulin Essential hypertension SCANNED - EYE EXAM 12/27/2021 from Last 3 Months or Most Recently Relevant to Health Maintenance Results * (ABNORMAL) POC Glycosylated Hemoglobin (Hb A1C) (07/12/2024 2:18 PM EDT) Hemoglobin A1C 7.9(A) 4.5 - 5.7 % [facility] Lot Number [id number] [facility] Expiration Date 03/18/26 [facility] Blood 07/12/2024 2:18 PM EDT Abena FERNANDEZ POINT OF CARE TEST ORDERA BLES Final Result [facility]
[address] [place] [address], * Microalbumin / Creatinine Urine Ratio - Urine, Clean Catch (03/25/2023 2:15 PM EDT) Creatinine, Urine 108.0 Not Estab. mg/dL [facility] Microalbumin, Urine 3.9 Not Estab. ug/mL [facility] Microalbumin/Cre atinine Ratio 4 0 - 29 mg/g creat [facility] Comment: Normal: 0 - 29 Moderately increased: 30 - 300 Severely increased: >300 Urine Urine specimen obtained by clean catch procedure / Unknown 03/25/2023 2:15 PM EDT 03/25/2023 Comment:Urine Release to pat i Narrative [facility] ([facility]) - 03/26/2023 9:37 AM EDT Performed at: - [facility] [address] [place], [place] [id number] Specialty Development Consultant: Luis Enrique Gomez PhD, Phone: [phone] us Abena FERNANDEZ URINE ORDERABLES Final Re sult [facility] ([facility]UL[facility]) [address] [place] [address], [facility] [address] [place] [address], * SCANNED - EYE EXAM (12/27/2021) Anatomical Region Laterality Modality Other Jonathon Serna MD CHART REVIEW TABS Fin al Result from Last 3 Months or Most Recently Relevant to Health Maintenance Insurance Care Teams Health Science Instructor Relationship Specialty Start Date End Date Gladis Gallagher MD [address] [place] [address] PCP - General Family Medicine 07/20/20
--- OUTSIDE RECORDS SUMMARY | 2025-04-29 12:58 | XMS_ITS | Encounter Summary ---
Author Organization Healthcare Address [address] [place] [address] Care Team Providers Care Exhibits Curator Name Role Phone Maryanne Wong MD Primary Care Provider [phone] Encounter Details Date Type Department Care Team [...] any time in the past 12 m [facility], were you homeless or living [...] documented as of this encounter Care Teams Exhibits Curator Relationship Specialty Start Date End Date Maryanne Wong MD [address] [place] [address] PCP - General Family Medicine 08/12/23 documented as of this encounter
--- OUTSIDE RECORDS SUMMARY | 2025-04-29 12:58 | XMS_ITS | Encounter Summary ---
Author Organization Healthcare Address [address] [place] [address] Care Team Providers Care Eligibility Technician Name Role Phone Maryanne Wong MD Primary Care Provider [phone] Encounter Details Date Type Department Care Team (Late st Contact Info) Description 03/30/2024 Outside Procedure External Location [address] [place] [address] Provider, Gregorio [place] Social History Tobacco Use Types Packs/Day Years [...] in a prison (including now)? No 12/24/2023 Utilities Answer Date [...] PM EDT Narrative 03/31/2024 12:34 [place] [address] Name: SIGIFREDO ORTEGA Exam Date: 03/30/2024 : 1940 Age 83 years Gender: M Physician: DEBBIE REED Facility: [facility] Facility HSV: Outpatient Exam: CT ABD [...] [facility]. Legally authenticated by BAN VO 2024-03-31 00:31:50 Procedure Note Provider, Generic [place] - 03/31/2024 [place] [address] Name: SIGIFREDO ORTEGA Exam Date: 03/30/2024 : 1940 Age 83 years Gender: M Physician: DEBBIE REED Facility: [facility] Facility HSV: Outpatient Exam: CT ABD [...] Thank you for referring SIGIFREDO ORTEGA to [facility]. Legally authenticated by BAN VO 2024-03-31 00:31:50 Generic [place] Provider IMG CT PROCEDURES Fi nal Result [...] documented as of this encounter Care Teams Eligibility Technician Relationship Specialty Start Date End Date Maryanne Wong MD [address] [place] [address] PCP - General Family Medicine 08/12/23 documented as of this encounter
--- OUTSIDE RECORDS SUMMARY | 2025-04-29 12:58 | XMS_ITS | Encounter Summary ---
Author Organization Healthcare Address [address] [id number] Care Team Providers Care Follow Up Clerk Name Role Phone Maryanne Wong MD Primary Care Provider [phone] Encounter Details Date Type Department Care Team (Late st Contact Info) Description 03/31/2025 Results Follow-Up [facility] [address] [place] [address] Mini Short, [employer] [address] [place] [address] Social History Tobacco Use Types [...] place to sleep or slept in a nursing home (including now)? No 12/24/2023 PHQ-9 Answer [...] any time in the past 12 m [facility], were you homeless or living in a nursing home (including now)? No 12/16/2024 Safety and [...] documented as of this encounter Care Teams Follow Up Clerk Relationship Specialty Start Date End Date Maryanne Wong MD [address] [place] [address] PCP - General Family Medicine 08/12/23 documented as of this encounter
--- OUTSIDE RECORDS SUMMARY | 2025-04-29 12:58 | XMS_ITS | Encounter Summary ---
Author Organization Healthcare Address [address] [place] [address] Care Team Providers Care Control Room Operator Name Role Phone Maryanne Wong MD Primary Care Provider [phone] Reason for Referral * Consultation (Routine) - Authorized Specialty Diagnoses / Procedures Referred By Shayy santos Referred To Contact General, Endocrine & Minimally Invasive Surgery Diagnoses Squamous cell carcinoma of left wrist Mini Short APRN [address] [place] [address] Phone: tel: fax: Referral ID Status Reason Start Date Expiration Date Visits Requested Visits Authorized [id number] Authorized Specialty Services Required 03/31/2025 09/30/2026 1 1 Encounter Details Date Type Department Care Team (Late st Contact Info) Description 03/31/2025 Orders Only [facility] [address] [place] [address] Mini Short APRN [address] [place] [address] Squamous cell carcinoma of left [...] to sleep or slept in a senior living (including now)? No 12/24/2023 PHQ-9 Answer Date [...] any time in the past 12 m [facility], were you homeless or living in a senior living (including now)? No 12/16/2024 Safety and Environment [...] documented as of this encounter Care Teams Control Room Operator Relationship Specialty Start Date End Date Maryanne Wong MD [address] [place] [address] PCP - General Family Medicine 08/12/23 documented as of this encounter
--- OUTSIDE RECORDS SUMMARY | 2025-04-29 12:58 | XMS_ITS | Encounter Summary ---
Author Organization Healthcare Address [address] [place] [address] Care Team Providers Care Notching Press Operator Name Role Phone Maryanne Wong MD Primary Care Provider [phone] Encounter Details Date Type Department Care Team (Late st Contact Info) Description 01/01/2024 Outside Procedure External Location [address] [place] [address] Provider, Gregorio [place] Social History Tobacco Use Types Packs/Day Years [...] AM EDT Narrative 01/01/2024 11:55 [place] [address] Name: SIGIFREDO ORTEGA Exam Date: 01/01/2024 : 1940 Age 83 years Gender: M Physician: CHAPARRO AMES Facility: [facility] Facility HSV: Outpatient Exam: CT BRAIN W/O [...] Thank you for referring SIGIFREDO ORTEGA to [facility]. Legally authenticated by CINDY LADD 2024-01-01 11:29:18 Procedure Note Provider, [facility] - 01/01/[address] [address] Name: SIGIFREDO ORTEGA Exam Date: 01/01/2024 : 1940 Age 83 years Gender: M Physician: CHAPARRO AMES Facility: [facility] Facility HSV: Outpatient Exam: CT BRAIN W/O [...] authenticated by CINDY LADD 2024-01-01 11:29:18 Generic [place] Provider IMG CT PROCEDURES Fi nal Result [...] documented as of this encounter Care Teams Notching Press Operator Relationship Specialty Start Date End Date Maryanne Wong MD [address] [place] [address] PCP - General Family Medicine 08/12/23 documented as of this encounter
--- OUTSIDE RECORDS SUMMARY | 2025-04-29 12:58 | XMS_ITS | Encounter Summary ---
Author Organization Healthcare Address [address] [place] [address] Care Team Providers Care Corporate General Manager Name Role Phone Maryanne Wong MD Primary Care Provider [phone] Encounter Details Date Type Department Care Team ([facility] st Contact Info) Description 09/04/2023 Orders Only External Location [address] [place] [address] Provider, External Social History Tobacco Use Types [...] documented as of this encounter Care Teams Corporate General Manager Relationship Specialty Start Date End Date Maryanne Wong MD [address] [place] [address] PCP - General Family Medicine 08/12/23 documented as of this encounter
--- OUTSIDE RECORDS SUMMARY | 2025-04-29 12:58 | XMS_ITS | Encounter Summary ---
Author Organization Healthcare Address [address] [place] [address] Care Team Providers Care Preventive Maintenance Coordinator Name Role Phone Maryanne Wong MD Primary Care Provider [phone] Encounter Details Date Type Department Care Team (Late st Contact Info) Description 01/01/2024 Outside Procedure External Location [address] [place] [address] Provider, Gregorio [place] Social History Tobacco Use Types Packs/Day Years [...] health care facility (including now)? No 12/24/2023 Utilities Answer Date [...] AM EDT Narrative 01/01/2024 10:29 [place] [address] Name: SIGIFREDO ORTEGA Exam Date: 01/01/2024 : 1940 Age 83 years Gender: M Physician: CHAPARRO AMES Facility: [facility] Facility HSV: Outpatient Exam: CHEST PORTABLE CHEST, [...] Thank you for referring SIGIFREDO ORTEGA to [facility]. Legally authenticated by CINDY LADD 2024-01-01 10:05:21 Procedure Note [facility], [facility] 01/01[facility]2024 [place] [address] Name: SIGIFREDO ORTEGA Exam Date: 01/01/2024 : 1940 Age 83 years Gender: M Physician: CHAPARRO AMES Facility: [facility] Facility HSV: Outpatient Exam: CHEST PORTABLE CHEST, [...] to [facility]. Legally authenticated by CINDY LADD 2024-01-01 10:05:21 Generic [place] Provider IMG XR PROCEDURES Fi nal Result [...] documented as of this encounter Care Teams Preventive Maintenance Coordinator Relationship Specialty Start Date End Date Maryanne Wong MD [address] [place] [address] PCP - General Family Medicine 08/12/23 documented as of this encounter
--- OUTSIDE RECORDS SUMMARY | 2025-04-29 12:58 | XMS_ITS | Encounter Summary ---
Author Organization Healthcare Address [address] [id number] Care Team Providers Care Outreach Librarian Name Role Phone Maryanne Wong MD Primary Care Provider [phone] Reason for Visit * Reason Onset Date Comments HCN - Patient Message 03/29/2025 Encounter Details Date Type Department Care Team (Late st Contact Info) Description 03/29/2025 Telephone [facility] [address] [place] [address] Maryanne Wong MD [address] [place] [address] HCN - Patient Message Social [...] place to sleep or slept in a alf (including now)? No 12/24/2023 PHQ-9 Answer Date [...] were you homeless or living in a alf (including now)? No 12/16/2024 Safety and Environment [...] the past 12 months has th e [employer], oil, or water [employer] threatened to shut off services in your [...] . Please advise Thanks Best contact number: [phone] (home) Optimal time of day to reach caller: ANYTIME Additional comments/information from caller: None Note: Please do not reply to this message. Follow-up communication and further actions as a result of this message need to be communicated with the patient directly, if the patient is not active onMyChart. If the patient is active on MyChart, they will receive notification of the communication/outcome via [employer]. documented in this encounter Plan of Treatment [...] documented as of this encounter Care Teams Outreach Librarian Relationship Specialty Start Date End Date Maryanne Wong MD [facility] [place] [address] PCP - General Family Medicine 08/12/23 documented as of this encounter
--- OUTSIDE RECORDS SUMMARY | 2025-04-29 12:58 | XMS_ITS | Encounter Summary ---
Author Organization Healthcare Address [address] [place] [address] Care Team Providers Care Game Manager Name Role Phone Maryanne Wong MD Primary Care Provider Encounter Details Date Type Department Care Team ([facility] st Contact Info) Description 08/29/2023 Orders Only External Location [address] [place] [address] Provider, External Social History Tobacco Use Types [...] documented as of this encounter Care Teams Game Manager Relationship Specialty Start Date End Date Maryanne Wong MD [address] [place] [address] PCP - General Family Medicine 08/12/23 documented as of this encounter
--- OUTSIDE RECORDS SUMMARY | 2025-04-29 12:58 | XMS_ITS | Encounter Summary ---
Author Organization Healthcare Address [address] [id number] Care Team Providers Care Time Study Observer Name Role Phone Gladis Gallagher MD Primary Care Provider [phone] Maryanne Wong MD Primary Care Provider [phone] Encounter Details Date Type Department Care Team (Late st Contact Info) Description 06/06/2023 Outside Procedure External Location [address] [place] [address] Provider, [facility] Social History Tobacco Use Types Packs/Day Years [...] PM EDT Narrative 06/07/2023 1:04 PM EDT [address] [address] Name: SIGIFREDO ORTEGA Exam Date: 06/06/2023 : 1940 Age 83 Gender: M Physician: DEBBIE REED Facility: [facility] Facility HSV: Outpatient Exam: CHEST PORTABLE PORTABLE [...] Thank you for referring SIGIFREDO ORTEGA to [facility]. Legally authenticated by STORMY CALDWELL 2023-06-07 12:52:00 Procedure Note Provider, [facility] 06/07/2023 [place] [address] Name: SIGIFREDO ORTEGA Exam Date: 06/06/2023 : 1940 Age 83 Gender: M Physician: DEBBIE REED Facility: [facility] Facility HSV: Outpatient Exam: CHEST PORTABLE PORTABLE [...] Thank you for referring SIGIFREDO ORTEGA to [facility]. Legally authenticated by STORMY CALDWELL 2023-06-07 12:52:00 [facility] Provider IMG XR PROCEDURES Fi nal Result [...] documented as of this encounter Care Teams Time Study Observer Relationship Specialty Start Date End Date Gladis Gallagher MD [address] [place] [address] PCP - General 02/09/21 08/11/23 Maryanne oWng MD [address] [place] [address] PCP - General Family Medicine 08/12/23 documented as of this encounter
--- OUTSIDE RECORDS SUMMARY | 2025-04-29 12:58 | XMS_ITS | Encounter Summary ---
Author Organization Healthcare Address [address] [place] [address] Care Team Providers Care Scale Technician Name Role Phone Maryanne Wong MD Primary Care Provider [phone] Encounter Details Date Type Department Care Team [...] any time in the past 12 m [facility], were you homeless or [...] documented as of this encounter Care Teams Scale Technician Relationship Specialty Start Date End Date Maryanne Wong MD [address] [place] [address] PCP - General Family Medicine 08/12/23 documented as of this encounter
--- NOTE | 2025-04-29 13:30 | CT_ITS ---
FINAL REPORT TECHNIQUE: Axial images through the abdomen and pelvis were performed without contrast. This study was performed with techniques to keep radiation doses as low as reasonably achievable, (ALARA). Individualized dose reduction techniques using automated exposure control or adjustment of mA and/or kV according to the patient's size were employed. CLINICAL HISTORY: htn, abdominal pain COMPARISON: None FINDINGS: Abdomen: The liver parenchyma is homogeneous. The gallbladder is surgically absent. The spleen, pancreas, adrenals and kidneys are unremarkable. Pelvis: The urinary bladder is incompletely distended. The appendix is unremarkable. There is a large amount of stool throughout the colon consistent with constipation. There is no pelvic mass or inflammation. IMPRESSION: Constipation. Reviewed, Interpreted and Dictated by Martell Pena MD Transcribed by Kourtney Sequeira Authenticated and [facility]
--- NOTE | 2025-04-29 13:30 | CT_ITS ---
FINAL REPORT TECHNIQUE: Axial images were obtained through the chest without contrast. Coronal and sagittal images were obtained and reviewed. This study was performed with techniques to keep radiation doses as low as reasonably achievable, (ALARA). Individualized dose reduction techniques using automated exposure control or adjustment of mA and/or kV according to the patient's size were employed. None none none CLINICAL HISTORY: chest pain. htn COMPARISON: None FINDINGS: There is streak artifact from multiple median sternotomy wires. The lungs are clear. The heart size is normal. Dense coronary artery calcifications are noted. There is no pericardial or pleural effusion. No suspicious infiltrate or nodule identified. IMPRESSION: No acute process. Dense coronary artery calcifications. Reviewed, Interpreted and Dictated by Martell Pena MD Transcribed by Kourtney Sequeira Authenticated and [facility]
== END 2025-04-29 23:59 | disposition home or self-care (01) ==
LOC: RAD 12:55
PROVIDERS: PCP Nurse Practitioner Family; Visit Provider Internal Medicine
DX: I25.810 Atherosclerosis of coronary artery bypass graft(s) without angina pectoris (principal); R10.9 Unspecified abdominal pain; K59.00 Constipation, unspecified; Z90.49 Acquired absence of other specified parts of digestive tract; I10 Essential (primary) hypertension; M31.0 Hypersensitivity angiitis; I77.6 Arteritis, unspecified; E78.49 Other hyperlipidemia
CPT/HCPCS: 71250; 74176

== ENCOUNTER 2025-05-23 12:28 | Outpatient (CLI) | payer MEDICARE, SELFPAY ==
--- OUTSIDE RECORDS SUMMARY | 2025-03-28 14:40 | XMS_ITS | Encounter Summary ---
Author Organization Healthcare Address [address] [id number] Care Team Providers Care Machine Set Up Technician Name Role Phone Maryanne Wong MD Primary Care Provider [phone] Reason for Visit * Reason Comments bump Pt has spots/ bumps on hand and arm, no pain or itching, has been there for about a month Encounter Details Date Type Department Care Team (Late st Contact Info) Description 03/28/2025 2:40 PM EDT Office Visit [facility] [address] [place] [address] Mini Short, POULTRY FARM SUPERVISOR [address] [place] [address] Changing skin lesion (Primary Dx) [...] any time in the past 12 m [facility], were you homeless or living [...] lesions on his forearms. 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 03/31/2025 11:38 AM EDT [facility] at 1138 EDT Clinical Information raised pearly hard nodule that scabs and will not heal L98.9 - Changing skin lesion [ICD-10-CM] 03/31/2025 11:38 AM EDT [facility] Gross Description A. WRIST, LEFT Received in formalin labeled wrist, left is a pink-salas skin fragment measuring 1.5 x 1.2 x 0.6 cm. The skin surface is rounded, roughened, and crusted. Resection margin inked blue, serially sectioned, and entirely submitted in cassettes A1-A2 with ends submitted in cassette A1. Lisbeth Lopez Agata 03/31/2025 11:38 AM EDT [facility] Note: A resident was involved in the service. I attest I examined the relevant preparations for the specimens and confirmed the diagnosis or interpretation. 03/31/2025 11:38 AM EDT [facility] Tissue Structure of left wrist region / Unknown Non-blood Collection / Unknown 03/28/2025 3:26 PM EDT 03/28/2025 3:26 PM EDT Mini Short APRN LAB PATHOLOGY ORDERABLES Constanza stewart Result [facility] [address] [place] [address] * Lesion biopsy (03/28/2025 2:40 PM EDT) [...] for mild pressure us Mini Smart Deja POULTRY FARM SUPERVISOR DERM PROCEDURE ORDERABLES Fin al Result documented [...] documented as of this encounter Care Teams Machine Set Up Technician Relationship Specialty Start Date End Date Maryanne Wong MD [address] [place] [phone] PCP - General Family Medicine 08/12/23 documented as of this encounter
--- OUTSIDE RECORDS SUMMARY | 2025-04-05 09:15 | XMS_ITS | Encounter Summary ---
Author Organization Healthcare Address [address] [place] [address] Care Team Providers Care Architectural Practice Manager Name Role Phone Maryanne Wong MD Primary Care Provider [phone] Reason for Visit * Reason Comments Post-op Encounter Details Date Type Department Care Team (Late st Contact Info) Description 2025 9:15 AM EDT Office Visit [facility] [address] [place] [address] Hayder Clarke MD [address] [place] [address] Cicatricial ectropion of lower eyelids [...] place to sleep or slept in a fpc (including now)? No 12/24/2023 PHQ-9 Answer Date [...] any time in the past 12 m [facility], were you homeless or living in a fpc (including now)? No 12/16/2024 Safety and Environment [...] Syringe U/F 31G X 02/11 1 ML [facility] [place] Blood Glucose Monitoring Suppl (Accu-Chek Guide Ak) [...] documented as of this encounter Care Teams Architectural Practice Manager Relationship Specialty Start Date End Date Maryanne Wong MD [address] [place] [address] PCP - General Family Medicine 08/12/23 documented as of this encounter
--- OUTSIDE RECORDS SUMMARY | 2025-05-23 12:31 | XMS_ITS | Encounter Summary ---
Author Organization Healthcare Address [address] [place] [address] Care Team Providers Care Clarifier Name Role Phone Maryanne Wong MD Primary Care Provider [phone] Encounter Details Date Type Department Care Team [...] any time in the past 12 m [facility], were you homeless or [...] documented as of this encounter Care Teams Clarifier Relationship Specialty Start Date End Date Maryanne Wong MD [address] [place] [address] PCP - General Family Medicine 08/12/23 documented as of this encounter
--- OUTSIDE RECORDS SUMMARY | 2025-05-23 12:31 | XMS_ITS | Encounter Summary ---
Author Organization Healthcare Address [address] [id number] Care Team Providers Care Copy Center Specialist Name Role Phone Maryanne Wong MD Primary Care Provider Encounter Details Date Type Department Care Team (Late st Contact Info) Description 03/31/2025 Results Follow-Up [facility] [address] [place] [address] Mini Short, SAFETY AIDE [address] [place] [address] Social History Tobacco Use Types [...] time in the past 12 m [facility], were you homeless or living in [...] documented as of this encounter Care Teams Copy Center Specialist Relationship Specialty Start Date End Date Maryanne Wong MD [address] [place] [address] PCP - General Family Medicine 08/12/23 documented as of this encounter
--- OUTSIDE RECORDS SUMMARY | 2025-05-23 12:31 | XMS_ITS | Encounter Summary ---
Author Organization Healthcare Address [address] [id number] Care Team Providers Care Water Purifier Name Role Phone Maryanne Wong MD Primary Care Provider [phone] Encounter Details Date Type Department Care Team (Late st Contact Info) Description 09/04/2023 Outside Procedure External Location [address] [place] [address] Provider, Gregorio [place] Social History Tobacco Use Types Packs/Day Years [...] AM EST Narrative 09/08/2023 11:40 AM EST [address] [address] Name: SIGIFREDO ORTEGA Exam Date: 09/04/2023 : 1940 Age 83 Gender: M Physician: ABIODUN THOMAS Facility: [facility] Facility HSV: Outpatient Exam: MRI LUMBAR SPINE [...] Thank you for referring SIGIFREDO ORTEGA to [facility]. Legally authenticated by SLIM Shepherd 2023-09-08 11:24:59 Procedure Note Provider, Generic [place] - 09/08/[address] [place] [address] Name: SIGIFREDO ORTEGA Exam Date: 09/04/2023 : 1940 Age 83 Gender: M Physician: ABIODUN THOMAS Facility: [facility] Facility HSV: Outpatient Exam: MRI LUMBAR SPINE [...] for referring SIGIFREDO ORTEGA to [facility]. Legally authenticated by SLIM Shepherd 2023-09-08 11:24:59 Generic [place] Provider IMG MRI PROCEDURES F inal Result [...] documented as of this encounter Care Teams Water Purifier Relationship Specialty Start Date End Date Maryanne Wong MD [address] [place] [address] PCP - General Family Medicine 08/12/23 documented as of this encounter
--- OUTSIDE RECORDS SUMMARY | 2025-05-23 12:31 | XMS_ITS | Encounter Summary ---
Author Organization Healthcare Address [address] [place] [address] Care Team Providers Care Passenger Coach Driver Name Role Phone Maryanne Wong MD Primary Care Provider [phone] Encounter Details Date Type Department Care Team ([facility] st Contact Info) Description 08/29/2023 Orders Only External Location [address] [place] [address] Provider, External Social History Tobacco Use Types [...] documented as of this encounter Care Teams Passenger Coach Driver Relationship Specialty Start Date End Date Maryanne Wong MD [address] [place] [address] PCP - General Family Medicine 08/12/23 documented as of this encounter
--- OUTSIDE RECORDS SUMMARY | 2025-05-23 12:31 | XMS_ITS | Encounter Summary ---
Author Organization Healthcare Address [address] [id number] Care Team Providers Care Alarm Service Technician Name Role Phone Maryanne Wong MD Primary Care Provider [phone] Encounter Details Date Type Department Care Team (Late st Contact Info) Description 08/29/2023 Outside Procedure External Location [address] [place] [address] Maryanne Wong MD [address] [place] [address] Social History Tobacco Use Types [...] AM EST Narrative 08/29/2023 2:09 PM EST [place] [address] Name: SIGIFREDO ORTEGA Exam Date: 08/29/2023 : 1940 Age 83 Gender: M Physician: MARYANNE FRANKLIN Facility: [facility] Facility HSV: Outpatient Exam: MRA BRAIN W/O [...] Thank you for referring SIGIFREDO ORTEGA to [facility]. Legally authenticated by SLIM Shepherd 2023-08-29 13:55:28 Procedure Note Provider, Generic [place] - 08/29/2023 [address] [place] [address] Name: SIGIFREDO ORTEGA Exam Date: 08/29/2023 : 1940 Age 83 Gender: M Physician: MARYANNE FRANKLIN Facility: [facility] Facility HSV: Outpatient Exam: MRA BRAIN W/O [...] Thank you for referring SIGIFREDO ORTEGA to [facility]. Legally authenticated by SLIM Shepherd [...] documented as of this encounter Care Teams Alarm Service Technician Relationship Specialty Start Date End Date Maryanne Wong MD [address] [place] [address] PCP - General Family Medicine 08/12/23 documented as of this encounter
--- OUTSIDE RECORDS SUMMARY | 2025-05-23 12:31 | XMS_ITS | Encounter Summary ---
Author Organization Healthcare Address [address] [id number] Care Team Providers Care Weights And Measures Inspector Name Role Phone Maryanne Wong MD Primary Care Provider [phone] Encounter Details Date Type Department Care Team ([facility] st Contact Info) Description 08/15/2023 Outside Procedure External Location [address] [place] [address] Provider, Gregorio [place] Social History Tobacco Use Types Packs/Day Years [...] PM EST Narrative 08/15/2023 10:20 PM EST [address] [address] Name: SIGIFREDO ORTEGA Exam Date: 08/15/2023 : 1940 Age 83 Gender: M Physician: TAHMINA BATISTA Facility: [facility] Facility HSV: Outpatient Exam: CT ABD [...] Thank you for referring SIGIFREDO ORTEGA to [facility]. Legally authenticated by QUANG Nichole 2023-08-15 22:06:17 Procedure Note Provider, Gregorio [place] - 08/15/2023 [address] [place] [address] Name: SIGIFREDO ORTEGA Exam Date: 08/15/2023 : 1940 Age 83 Gender: M Physician: TAHMINA BATISTA Facility: [facility] Facility HSV: Outpatient Exam: CT ABD [...] Thank you for referring SIGIFREDO ORTEGA to [facility]. Legally authenticated by QUANG Nichole 2023-08-15 22:06:17 us Generic [place] Provider IMG CT PROCEDURES Fi nal Result [...] documented as of this encounter Care Teams Weights And Measures Inspector Relationship Specialty Start Date End Date Maryanne Wong MD [address] [place] [address] PCP - General Family Medicine 08/12/23 documented as of this encounter
--- OUTSIDE RECORDS SUMMARY | 2025-05-23 12:31 | XMS_ITS | Encounter Summary ---
Author Organization Healthcare Address [address] [id number] Care Team Providers Care Jump Roll Operator Name Role Phone Maryanne Wong MD Primary Care Provider [phone] Reason for Visit * Reason Onset Date Comments HCN - Patient Message 03/29/2025 Encounter Details Date Type Department Care Team (Late st Contact Info) Description 03/29/2025 Telephone [facility] [address] [place] [address] Maryanne Wong MD [address] [place] [address] HCN - Patient Message Social [...] any time in the past 12 m [facility], were you homeless or [...] the past 12 months has th e [email or web address], [employer], oil, or water Jenn [employer] threatened to shut off services in your [...] . Please advise Thanks Best contact number: [phone] (home) Optimal time of day to reach caller: ANYTIME Additional comments/information from caller: None Note: Please do not reply to this message. Follow-up communication and further actions as a result of this message need to be communicated with the patient directly, if the patient is not active onMyChart. If the patient is active on MyChart, they will receive notification of the communication/outcome via [employer] documented in this encounter Plan of Treatment [...] documented as of this encounter Care Teams Jump Roll Operator Relationship Specialty Start Date End Date Maryanne Wong MD [facility] [address] PCP - General Family Medicine 08/12/23 documented as of this encounter
--- OUTSIDE RECORDS SUMMARY | 2025-05-23 12:31 | XMS_ITS | Encounter Summary ---
Author Organization Healthcare Address [address] [place] [address] Care Team Providers Care Telex Operator Name Role Phone Maryanne Wong MD Primary Care Provider [phone] Encounter Details Date Type Department Care Team ([facility] st Contact Info) Description 09/04/2023 Orders Only External Location [address] [place] [address] Provider, External Social History Tobacco Use Types [...] documented as of this encounter Care Teams Telex Operator Relationship Specialty Start Date End Date Maryanne Wong MD [address] [place] [address] PCP - General Family Medicine 08/12/23 documented as of this encounter
--- OUTSIDE RECORDS SUMMARY | 2025-05-23 12:31 | XMS_ITS | Encounter Summary ---
Author Organization Healthcare Address [address] [place] [address] Care Team Providers Care Parts Sales Manager Name Role Phone Maryanne Wong MD Primary Care Provider [phone] Reason for Referral * Consultation (Routine) - Authorized Specialty Diagnoses / Procedures Referred By Shayy santos Referred To Contact General, Endocrine & Minimally Invasive Surgery Diagnoses Squamous cell carcinoma of left wrist Mini Short APRN [address] [place] [address] Phone: tel: fax: Referral ID Status Reason Start Date Expiration Date Visits Requested Visits Authorized [id number] Authorized Specialty Services Required 03/31/2025 09/30/2026 1 1 Encounter Details Date Type Department Care Team (Late st Contact Info) Description 03/31/2025 Orders Only [facility] [address] [place] [address] Mini Short APRN [address] [place] [address] Squamous cell carcinoma of left [...] place to sleep or slept in a custodial (including now)? No 12/24/2023 PHQ-9 Answer Date [...] any time in the past 12 m [facility], were you homeless or living in a custodial (including now)? No 12/16/2024 Safety and Environment [...] documented as of this encounter Care Teams Parts Sales Manager Relationship Specialty Start Date End Date Maryanne Wong MD [address] [place] [address] PCP - General Family Medicine 08/12/23 documented as of this encounter
--- OUTSIDE RECORDS SUMMARY | 2025-05-23 12:31 | XMS_ITS | Encounter Summary ---
Author Organization Healthcare Address [address] [place] [address] Care Team Providers Care Fourth Grade Teacher Name Role Phone Maryanne Wong MD Primary Care Provider [phone] Encounter Details Date Type Department Care Team [...] documented as of this encounter Care Teams Fourth Grade Teacher Relationship Specialty Start Date End Date Maryanne Wong MD [address] [place] [address] PCP - General Family Medicine 08/12/23 documented as of this encounter
--- OUTSIDE RECORDS SUMMARY | 2025-05-23 12:32 | XMS_ITS | Encounter Summary ---
Author Organization [facility] Address [address] [place] [id number] Care Team Providers Care Director Prison Name Role Phone Gladis Gallagher MD Primary Care Provider [phone] Encounter Details Date Type Department Care Team (Late st Contact Info) Description 2025 Telephone [facility] [address] [address] Abena Friend PA [address] [address] Social History Tobacco Use Types Packs/Day Years [...] it came from his insurance company of [facility] regarding his recent no show. He said [...] 08/02/2025 2:30 PM EST Office Visit [facility] [address] [address] Abena Friend PA [address] [address] documented as of this encounter Visit Diagnoses Not on filedocumented in this encounter Care Teams Director Prison Relationship Specialty Start Date End Date Gladis Gallagher MD [address] [place] [address] PCP - General Family Medicine 07/20/20 documented as of this encounter
--- OUTSIDE RECORDS SUMMARY | 2025-05-23 12:32 | XMS_ITS | Clinical Summary ---
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 Results Follow-Up [facility] [address] [place] [address] Mini Short APRN 03/29/2025 Telephone [facility] [address] [place] [address] Maryanne Wong MD HCN - Patient Message 03/28/2025 2:40 PM EDT Office Visit [facility] [address] [place] [address] Mini Short APRN Changing skin lesion (Primary Dx) 03/28/2025 Travel 03/08/2025 4:00 PM EDT Office Visit [facility] [address] [place] [address] Hayder Clarke MD 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 Advanced Surgery [address] [place] [address] Shena Doty MD 02/28/2025 2:25 PM EDT - 02/28/2025 3:15 PM EDT Surgery [address] [address] Hayder Clarke MD REPAIR, ECTROPION, EYELID [[id number] (CPT )] 02/28/2025 10:57 AM EDT - 02/28/2025 5:28 PM EDT Hospital Encounter [address] [address] Hayder Clarke MD Cicatricial ectropion [...] any time in the past 12 [facility], were you homeless or living in [...] In the past 12 months has e Senior Living, gas, oil, or water company threatened to [...] or (1 - 1-dose 75+ series) 2017 [id number]-74 Vaccine (7 - Moderna risk season) 2024 [...] ANESTHESIA PLACEHOLDER Routine 02/28/2025 3:02 PM EDT WA AN ELECTIVE ENDOTRACHEAL AIRWAY Routine 02/28/2025 3:02 PM EDT APPLICATION, GRAFT, SKIN, FULL-THICKNESS, TO EYELID 02/28/2025 2:50 PM EDT 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 03/31/2025 11:38 AM EDT [facility] at 1138 EDT Clinical Information raised pearly hard nodule that scabs and will not heal L98.9 - Changing skin lesion [ICD-10-CM] 03/31/2025 11:38 AM EDT [facility] Gross Description A. WRIST, LEFT Received in formalin labeled wrist, left is a pink-salas skin fragment measuring 1.5 x 1.2 x 0.6 cm. The skin surface is rounded, roughened, and crusted. Resection margin inked blue, serially sectioned, and entirely submitted in cassettes A1-A2 with ends submitted in cassette A1. Lisbeth Lopez Parmar 03/31/2025 11:38 AM EDT [facility] Note: A resident was involved in the service. I attest I examined the relevant preparations for the specimens and confirmed the diagnosis or interpretation. 03/31/2025 11:38 AM EDT [facility] Tissue Structure of left wrist region / Unknown Non-blood Collection / Unknown 03/28/2025 3:26 PM EDT 03/28/2025 3:26 PM EDT us Mini Short APRN LAB PATHOLOGY ORDERABLES Constanza stewart Result [facility] [address] [place] [address] * Lesion biopsy (03/28/2025 2:40 PM EDT) [...] applied for mild pressure us Mini Short LEAD RADIOLOGIC TECHNOLOGIST DERM PROCEDURE ORDERABLES Fin al Result * POCT glucose meter (02/28/2025 4:38 PM EDT) Only the most recent of3 resultswithin the time period is included. POCT Glucose 90 74 - 99 mg/dL 02/28/2025 4:40 PM EDT [facility] Comment:Accuracy of a glucos e result [...] for testing. Comment 02/28/2025 4:40 PM EDT [facility] Slate Splitting Supervisor ID Eileen Rossi 025 4:40 PM EDT [facility] Device ID [id number] 02/28/2025 4:40 PM EDT [facility] Specimen Type POC Capillary 02/28/2025 4:40 PM EDT [facility] Blood Capillary blood specimen / Unknown 02/28/2025 4:38 PM EDT 02/28/2025 4:40 PM EDT us Hayder Clarke MD LAB POINT OF CARE TE ST DOCKED DEVICE UNSOLICITED RESULTS Final Result Performing Organization Address City/State/[facility] Co de Phone Number [facility] [address] [place] [address] * WA AN ELECTIVE ENDOTRACHEAL AIRWAY, PB ANESTHESIA PLACEHOLDER [...] <6.0% Children and Adolescents <7.5% . Source: [place] [employer]. Standards of medical care in diabetes, 2017. Diabetes Care.2017:40 (suppl 1):S1-S135. . HbA1c assay performed by an ion-exchange chromatography method that is certified traceable to the DCCT. 02/28/2021 10:1 7 AM EDT 02/28/2021 1:07 PM EDT us Maryanne Wong MD LAB BLOOD ORDERABLES Final Res ult [employer] from Last 3 Months or Most Recently Relevant to Health Maintenance [place] [address] [address] MEDICARE Care Teams Director Furniture Relationship Specialty Start Date End Date Maryanne Wong MD [address] [place] [address] PCP - General Family Medicine 08/12/23
--- OUTSIDE RECORDS SUMMARY | 2025-05-23 12:32 | XMS_ITS | Clinical Summary ---
Author Organization [facility] Address [address] [place] [address] Care Team Providers Care Oyster Preparer Name Role Phone Gladis Gallagher MD Primary Care Provider [phone] Allergies Active Allergy Reactions Criticality Noted Date Comments Morphine Anaphylaxis High 07/20/2020 Penicillins Unknown (See Comments) Low 12/23/2014 From Childhood- patient denies, has taken penicillin without reaction Medications vitamin D (ERGOCALCIFEROL) 1.25 MG (00029 UT) capsule capsule Take 1 capsule by [...] his positive TPO. He will speak to data warehousing specialist about this to discuss if he [...] Type Department Care Team Description [address] [facility] ENDOCR[facility] [address] [place] [address] Abena Friend PA 03/14/[address] [facility] END[facility] [address] [place] [address] Abena Friend PA from Last 3 Months [...] Description 08/02/2025 2:30 PM EST Office Visit [facility] [address] [facility] [address] [place] [address] Abena Friend PA [address] [facility] [address] [place] [address] Health Maintenance Due Date Last [...] Hemoglobin A1C 7.9(A) 4.5 - 5.7 % [facility] Lot Number [id number] [facility] Expiration Date 03/18/26 [facility] Blood 07/12/2024 2:18 PM EDT Abena FERNANDEZ POINT OF CARE TEST ORDERA BLES Final Result [facility]
[address] [place] [address], * Microalbumin / Creatinine Urine Ratio - [...] 9:37 AM EDT Performed at: - [facility] [address] [place], [place] [id number] Associate Application Developer: Luis Enrique Gomez PhD, Phone: [phone] us Abena FERNANDEZ URINE ORDERABLES Final Re sult [facility] ([facility]ULAT[facility]) [address] [place] [address], [facility] [address] [place] [address], * SCANNED - EYE EXAM (12/27/2021) Anatomical Region Laterality Modality Other Jonathon Serna MD CHART REVIEW TABS Fin al Result from Last 3 Months or Most Recently Relevant to Health Maintenance Insurance Care Teams Oyster Preparer Relationship Specialty Start Date End Date Gladis Gallagher MD [address] [place] [address] PCP - General Family Medicine 07/20/20
--- OUTSIDE RECORDS SUMMARY | 2025-05-23 12:32 | XMS_ITS | Encounter Summary ---
Author Organization Healthcare Address [address] [id number] Care Team Providers Care Disbursement Clerk Name Role Phone Maryanne Wong MD Primary Care Provider [phone] Reason for Visit * Reason Comments Med Refill Encounter Details Date Type Department Care Team (Late st Contact Info) Description 10/06/2023 Refill [facility] [address] [place] [address] Maryanne Wong MD [address] [place] [address] Vasculitis (CMS/HCC) Social History Tobacco [...] documented as of this encounter Care Teams Disbursement Clerk Relationship Specialty Start Date End Date Maryanne Wong MD [address] [place] [address] PCP - General Family Medicine 08/12/23 documented as of this encounter
--- OUTSIDE RECORDS SUMMARY | 2025-05-23 12:32 | XMS_ITS | Encounter Summary ---
Author Organization Healthcare Address [address] [place] [address] Care Team Providers Care Dry Placer Machine Operator Name Role Phone Maryanne Wong MD Primary Care Provider [phone] Encounter Details Date Type Department Care Team (Late st Contact Info) Description 01/01/2024 Outside Procedure External Location [address] [place] [address] Provider, Gregorio [place] Social History Tobacco Use Types Packs/Day Years [...] in a custodial (including now)? No 12/24/2023 Utilities Answer Date [...] AM EDT Narrative 01/01/2024 10:29 [place] [address] Name: SIGIFREDO ORTEGA Exam Date: 01/01/2024 : 1940 Age 83 years Gender: M Physician: CHAPARRO AMES Facility: [facility] Facility HSV: Outpatient Exam: CHEST PORTABLE [...] Thank you for referring SIGIFREDO ORTEGA to [facility]. Legally authenticated by CINDY LADD 2024-01-01 10:05:21 Procedure Note [facility], [facility]2024 [place] [address] Name: SIGIFREDO ORTEGA Exam Date: 01/01/2024 : 1940 Age 83 years Gender: M Physician: CHAPARRO AMES Facility: [facility] Facility HSV: Outpatient Exam: CHEST PORTABLE [...] Thank you for referring SIGIFREDO ORTEGA to [facility]. Legally authenticated by CINDY LADD 2024-01-01 10:05:21 Generic [place] Provider IMG XR PROCEDURES Fi nal Result [...] documented as of this encounter Care Teams Dry Placer Machine Operator Relationship Specialty Start Date End Date Maryanne Wong MD [address] [place] [address] PCP - General Family Medicine 08/12/23 documented as of this encounter
--- OUTSIDE RECORDS SUMMARY | 2025-05-23 12:32 | XMS_ITS | Encounter Summary ---
Author Organization Healthcare Address [address] [place] [id number] Care Team Providers Care Hydraulic Mechanic Name Role Phone Gladis Gallagher MD Primary Care Provider [phone] Maryanne Wong MD Primary Care Provider [phone] Encounter Details Date Type Department Care Team (Late st Contact Info) Description 06/06/2023 Outside Procedure External Location [address] [place] [address] Provider, [facility] Social History Tobacco Use Types [...] PM EDT Narrative 06/07/2023 1:04 PM EDT [address] [address] Name: SIGIFREDO ORTEGA Exam Date: 06/06/2023 : 1940 Age 83 Gender: M Physician: DEBBIE REED Facility: [facility] Facility HSV: Outpatient Exam: CHEST PORTABLE PORTABLE [...] to [facility]. Legally authenticated by STORMY CALDWELL 2023-06-07 12:52:00 Procedure Note Provider, [facility] 06/07/2023 [place] [address] Name: SIGIFREDO ORTEGA Exam Date: 06/06/2023 : 1940 Age 83 Gender: M Physician: DEBBIE REED Facility: [facility] Facility HSV: Outpatient Exam: CHEST PORTABLE PORTABLE [...] for referring SIGIFREDO ORTEGA to [facility]. Legally authenticated by STORMY CALDWELL 2023-06-07 12:52:[address] [facility] Provider IMG XR PROCEDURES Fi nal Result [...] documented as of this encounter Care Teams Hydraulic Mechanic Relationship Specialty Start Date End Date Gladis Gallagher MD [address] [place] [address] PCP - General 02/09/21 08/11/23 Maryanne Wong MD [address] [place] [address] PCP - General Family Medicine 08/12/23 documented as of this encounter
--- OUTSIDE RECORDS SUMMARY | 2025-05-23 12:32 | XMS_ITS | Encounter Summary ---
Author Organization Healthcare Address [address] [place] [address] Care Team Providers Care Mechanical Engineer Name Role Phone Maryanne Wong MD Primary Care Provider [phone] Encounter Details Date Type Department Care Team (Late st Contact Info) Description 01/01/2024 Outside Procedure External Location [address] [place] [address] Provider, Gregorio [place] Social History Tobacco Use Types Packs/Day Years [...] place to sleep or slept in a usp (including now)? No 12/24/2023 Utilities Answer Date [...] AM EDT Narrative 01/01/2024 11:55 [place] [address] Name: SIGIFREDO ORTEGA Exam Date: 01/01/2024 : 1940 Age 83 years Gender: M Physician: CHAPARRO AMES Facility: [facility] Facility HSV: Outpatient Exam: CT BRAIN [...] Thank you for referring SIGIFREDO ORTEGA to [facility]. Legally authenticated by CINDY LADD 2024-01-01 11:29:18 Procedure Note Provider, [facility] - 01/01/[address] [address] Name: SIGIFREDO ORTEGA Exam Date: 01/01/2024 : 1940 Age 83 years Gender: M Physician: CHAPARRO AMES Facility: [facility] Facility HSV: Outpatient Exam: CT BRAIN [...] Thank you for referring SIGIFREDO ORTEGA to [facility]. Legally authenticated by CINDY LADD 2024-01-01 11:29:18 Generic [place] Provider IMG CT PROCEDURES Fi nal Result [...] documented as of this encounter Care Teams Mechanical Engineer Relationship Specialty Start Date End Date Maryanne Wong MD [address] [place] [address] PCP - General Family Medicine 08/12/23 documented as of this encounter
--- OUTSIDE RECORDS SUMMARY | 2025-05-23 12:32 | XMS_ITS | Encounter Summary ---
Author Organization Healthcare Address [address] [place] [address] Care Team Providers Care Plumbing Engineer Name Role Phone Maryanne Wong MD Primary Care Provider [phone] Encounter Details Date Type Department Care Team (Late st Contact Info) Description 03/30/2024 Outside Procedure External Location [address] [place] [address] Provider, Gregorio [place] Social History Tobacco Use Types Packs/Day Years [...] in a jail (including now)? No 12/24/2023 Utilities Answer Date [...] PM EDT Narrative 03/31/2024 12:34 [place] [address] Name: SIGIFREDO ORTEGA Exam Date: 03/30/2024 : 1940 Age 83 years Gender: M Physician: DEBBIE REED Facility: [facility] Facility HSV: Outpatient Exam: CT ABD PEL [...] Thank you for referring SIGIFREDO ORTEGA to [facility]. Legally authenticated by BAN VO 2024-03-31 00:31:50 Procedure Note Provider, Generic [place] - 03/31/2024 [place] [address] Name: SIGIFREDO ORTEGA Exam Date: 03/30/2024 : 1940 Age 83 years Gender: M Physician: DEBBIE REED Facility: [facility] Facility HSV: Outpatient Exam: CT ABD PEL [...] Thank you for referring SIGIFREDO ORTEGA to [facility]. Legally authenticated by BAN VO 2024-03-31 00:31:50 Generic [place] Provider IMG CT PROCEDURES Fi nal Result [...] documented as of this encounter Care Teams Plumbing Engineer Relationship Specialty Start Date End Date Maryanne Wogn MD [address] [place] [address] PCP - General Family Medicine 08/12/23 documented as of this encounter
--- OUTSIDE RECORDS SUMMARY | 2025-05-23 12:32 | XMS_ITS | Encounter Summary ---
Author Organization [facility] Address [address] [place] [address] Care Team Providers Care School Operations Manager Name Role Phone Gladis Gallagher MD Primary Care Provider Maryanne Wong MD Primary Care Provider [phone] Encounter Details Date Type Department Care Team (Late st Contact Info) Description 02/04/2023 Outside Procedure External Location [address] [place] [address] Margarito Martell MD [address] [place] [address] Social History Tobacco Use Types [...] PM EDT Narrative 02/06/2023 10:00 AM EDT [place] [address] [place] [address] Name: SIGIFREDO ORTEGA Exam Date: 02/04/2023 : 1940 Age 82 Gender: M Physician: MARGARITO MARTELL Facility: [facility] Facility HSV: Outpatient Exam: ECHO W [...] There is no aortic stenosis. AV peak rjwhnwve=941qp/sec. There is no aortic regurgitation. Tricuspid valve: [...] ORTEGA to [facility]. Legally authenticated by JOVI Willard 2023-02-06 09:49:02 Procedure Note Provider, Generic [place] - 02/06/2023 [place] [address] Name: SIGIFREDO ORTEGA Exam Date: 02/04/2023 : 1940 Age 82 Gender: M Physician: MARGARITO MARTELL Facility: [facility] Facility HSV: Outpatient Exam: ECHO W [...] There is no aortic stenosis. AV peak bedagzoq=792xm/sec. There is no aortic regurgitation. Tricuspid valve: [...] to [facility]. Legally authenticated by JOVI Willard 2023-02-06 [...] documented as of this encounter Care Teams School Operations Manager Relationship Specialty Start Date End Date Gladis Gallagher MD [address] [place] [address] PCP - General 02/09/21 08/11/23 Maryanne Wong MD [address] [place] [address] PCP - General Family Medicine 08/12/23 documented as of this encounter
[2025-05-23 13:43] LABS: Occult Blood,Stool Negative (Negative)
== END 2025-05-23 23:59 | disposition home or self-care (01) ==
LOC: LAB 12:29
PROVIDERS: PCP Nurse Practitioner Family; Visit Provider Internal Medicine Gastroenterology
DX: R19.4 Change in bowel habit (principal)
CPT/HCPCS: 82272; G0328

== ENCOUNTER 2025-09-08 11:37 | Outpatient (CLI) | payer MEDICARE, SELFPAY ==
--- NOTE | 2025-09-08 | CA_ITS ---
APPROVED REPORT Exam: Pharmacologic Technologist: Joan Mackenzie Ht: 5 ft 9 in Wt: 195 lbs BSA: 2.04 m2 HR: 50 bpm BP: 148/61 mmHg Indications: Chest Pain, Dyspnea, Pre-op Mon eye surg. Medical History Medications: Aspirin, Atorvastatin, HCTZ, Novolog, Lantus, Lisinopril, Memantine, Metoprolol Tartrate. Allergies: NKA Stress Test Details Test: Lexiscan Reason for pharmacologic stress test: physical limitation. HR Resting HR: 50 bpm Max Heart Rate (APMHR): 137.536233 bpm Max HR Achieved: 75 bpm Target HR (85% APMHR): 116.564361 bpm % of APMHR: 54.74 Recovery HR: 72 bpm BP Resting BP: 148.0/61.0 mmHg Max BP: 167.0/71.0 mmHg Recovery BP: 166.0/92.0 mmHg ECG Resting ECG: Sinus Bradycardia. Clinical Stress Symptoms: Dyspnea Stress ECG Conclusion Lungs CTA prior to test start. Symptoms: Dyspnea. Arrhythmias/Ectopy: PAC/PVC. ST-T Changes: Less than 0.5mm upsloping ST segment changes. Conclusion: Nondiagnostic ECG/Lexiscan. Electronically signed by : Sarah Thomas MD 09/12/2025 13:21:48
--- NOTE | 2025-09-08 12:30 | NM_ITS ---
APPROVED REPORT Exam: Nuclear Stress Test Indication: DM, CAD, Hx of [place], Pre op Patient Location: Outpatient Stress Tech: Joan GONZALES Tech:Christine Doshi VERNA RT(R)(N) Ht: 5 ft 9 in Wt: 192 lbs HR: 49 bpm BP: 148/61 mmHg BSA: 2.03 m2 TID: 1.02 BMI: 28.3 History: DM, CAD, Hx of [place], Pre op Procedure: Patient received 0.4 mg of intravenous Lexiscan, resting heart rate 49 bpm, resting blood pressure 148/61 mmHg, with Lexiscan maximum heart rate achieved was 79 bpm which is % of the maximum predicted heart rate and blood pressure was 167/71 mmHg. With Lexiscan, patient denied any complaint of chest pain. Cardiac Stress and Resting SPECT Images: Cardiac Stress and Resting SPECT images were obtained using technetium 99m Myoview 32.8 mCi stress and 10.64 mCi at rest. Resting and stress imaging and stress in supine positions demonstrate a small sized, moderate, fixed perfusion defect in the basal inferior LV wall. No evidence of reversible ischemia. Gated imaging demonstrates normal global LV systolic function. LVEF is calculated at 59%. Conclusion: Small sized, moderate, fixed perfusion defect in the basal inferior LV wall. No evidence of reversible ischemia. Gated imaging demonstrates normal global LV systolic function. LVEF is calculated at 59%. Electronically signed by : Sarah Thomas MD 09/08/2025 15:35:33
[2025-09-08 13:00] VITALS: BP 148/61; PULSE 50; RESP 16
--- NOTE | 2025-09-08 14:30 | CA_ITS ---
APPROVED REPORT EXAM: Comprehensive 2D, Doppler, and color-flow Echocardiogram Manager Golf: Danya Edgar RDCS Ht: 5 ft 11 in Wt: 195lbs BSA: 2.09 BP: 145/65 mmHg Indications: CAD CP M-Mode Dimensions RVDd 1.78 cm (0.9-2.6) LA Diam 3.89 cm (1.9-4.0) LVDd 5.95 cm (3.5-5.7) LVDs 4.63 cm (3.5-5.7) IVSd 0.99 cm (0.6-1.1) PWd 0.91 cm (0.6-1.1) EF (Teich) 44.10% FS 22.20% EDV (Teich) 176.60 mL ESV (Teich) 98.80 mL LV Diastology E Decel Time 393 (160-240 msec) E/A Ratio 0.6 Aortic Valve ESTIVEN Index 1.53 cm2/m2 AoV Peak Abhilash. 110.0 (50-130 cm/s) AO Peak GR. 4.90 mmHg AO Mean GR. 2.40 (<5 mmHg) AO VTI 23.3 (18-25 cm) ESTIVEN (VTI) 3.27 (2.5-4.5 cm2) Mitral Valve MV E Max Abhilash. 76.0 (40-130 cm/s) MV A Velocity 118.0 (40-130 cm/s) E/A Ratio 0.65 MV PHT 115.0 ms Left Ventricle The left ventricle is normal size. Left ventricular systolic function is normal. The left ventricular ejection fraction is within the normal range. There is increased left ventricular wall thickness. There is normal LV segmental wall motion. The left ventricular diastolic function is indeterminate. LVEF is 55% Right Ventricle The right ventricle is normal size. The right ventricular systolic function is normal. Atria Left atrium is mildly dilated. Right atrium is mildly dilated. There is no color Doppler evidence of interatrial shunt. Aortic Valve The aortic valve is mildly thickened. There is no hemodynamically significant aortic valvular stenosis. No aortic regurgitation is present. Mitral Valve The mitral valve is normal in structure. No evidence of mitral valve stenosis. Mild mitral regurgitation is present. Tricuspid Valve The tricuspid valve leaflets are thin and pliable. Trace tricuspid regurgitation. There is insufficient TR jet to estimate RVSP. Pulmonic Valve The pulmonary valve is grossly normal in structure. Trace pulmonic valve regurgitation is present. Great Vessels The aortic root is normal in size. IVC is normal in size and collapses >50% with inspiration. Pericardium There is no pericardial effusion. Other Information Study Quality: Fair Conclusion Normal biventricular systolic function. Mild biatrial dilation. Mild MR. Electronically signed by : Sarah Thomas MD 09/08/2025 12:54:15
[2025-09-08] MEDS: ISOTOPE MYOVIEW (PER STUDY) 1 DOSE IV (14:50)
[2025-09-08] MEDS: SODIUM CHLORIDE 0.9% 10ML SYR (RAD ONLY) 10 ML IV ×2 (14:50)
== END 2025-09-08 23:59 | disposition home or self-care (01) ==
LOC: RAD 11:37
PROVIDERS: PCP Nurse Practitioner Family; Visit Provider Internal Medicine
DX: I34.0 Nonrheumatic mitral (valve) insufficiency (principal); I51.7 Cardiomegaly; I25.810 Atherosclerosis of coronary artery bypass graft(s) without angina pectoris; I42.9 Cardiomyopathy, unspecified; Z95.1 Presence of aortocoronary bypass graft
CPT/HCPCS: 78452; 93017; 93018; 93306; A9502; J2785